=== PATIENT | female | born 1940 | race Caucasian/White ===

== ENCOUNTER 2018-03-23 08:10 | Inpatient (IN) | payer OTHER, BC ==
--- NOTE | 2018-03-23 08:21 | PDOC ---
Attending Attestation - HPI HPI: 03/23/18 10:29 The patient is a 77 year old female with a significant PMH of COPD and HTN who presents to the emergency department for evaluation of respiratory distress. As per EMS, the patients shortness of breath and cough has been worsening over the past week. They state she has been taking Azithromycin over the past week to minimal relief. Patient history is limited secondary to the patients respiratory distress. Allergies: NKA <Gavin Melgar - Last Filed: 03/23/18 10:29> - Resident Resident Name: Jesse Blair - ED Attending Attestation I have performed the following: I have examined & evaluated the patient, The case was reviewed & discussed with the resident, I agree w/resident's findings & plan, Exceptions are as noted - Physicial Exam PE: 03/23/18 16:25 Vitals: Triage Vital signs reviewed General Appearance: Moderate respiratory distress Head: Atraumatic, Neck: Supple;No Nucal rigidity Chest Wall: Nontender Cardiac: Tachycardia Lungs: Crackles and Wheezes B/L Abdomen: Soft, non distended, normal bowel sounds, non tender to palpation Extremities: Full range of motion to all extremities, no cyanosis, clubbing, or edema Skin: diaphroetic Psych: normal mood, normal affect - Critical Care Time Total Critical Care Time: 35 Critical Care Statement: The care of this patient involved high complexity decision making to prevent further life threatening deterioration of the patient 's condition and/or to evaluate & treat vital organ system(s) failure or risk of failure. - Medical Decision Making 03/23/18 16:24 The patient is a 77 year old female with a significant PMH of COPD and HTN who presents to the emergency department for evaluation of respiratory distress. As per EMS, the patients shortness of breath and cough has been worsening over the past week. They state she has been taking Azithromycin over the past week to minimal relief. Patient history is limited secondary to the patients respiratory distress. History examination and vital signs concerning for sepsis secondary to a respiratory process Sepsis order set initiated Patient started on BiPAP ABG ordered blood cultures ordered antibiotics given Reevaluation patient improving on BiPAP Reevaluation history examination consistent with pneumonia We'll admit to ICU for further management ICU aware <Don Hou - Last Filed: 03/23/18 16:26>
--- NOTE | 2018-03-23 08:28 | PDOC ---
History of Present Illness - General Chief Complaint: Shortness of Breath Stated Complaint: SOB Time Seen by Provider: 03/23/18 08:21 - History of Present Illness Initial Comments: 03/23/18 08:56 The patient is a 77 year old female with a history of HTN, COPD who presents for evaluation of respiratory distress. History is limited from the patient due to respiratory distress. Per EMS the patient has been experiencing worsening SOB and cough over the past week and has been taking azithromycin on an outpatient basis for a probably pneumonia without improvement in her symptoms. The patient was experiencing worsening respiratory distress and lethargy today prompting her presentation to the ED for evaluation. She received [address] to the ED with some mild improvement in her symptoms. ROS is limited due to the patient's respiratory distress. Past History - Past Medical History Allergies/Adverse Reactions: Allergies Allergy/AdvReac Type Severity Reaction Status Date / Time No Known Allergies Allergy Verified 03/23/18 08:20 Asthma: Yes COPD: Yes HTN: Yes - Suicide/Smoking/Psychosocial Hx Smoking History: Unknown if ever smoked Review of Systems - Review of Systems Able to Perform ROS?: No (Respiratory Distress) *Physical Exam - Vital Signs Last Vital Signs Temp Pulse Resp BP Pulse Ox 100.5 F H 134 H 40 H 154/101 97 03/23/18 08:28 03/23/18 08:21 03/23/18 08:21 03/23/18 08:21 03/23/18 08:21 - Physical Exam Comments: 03/23/18 09:01 General Appearance: Diaphoretic In Apparent Distress HEENT: No Pharyngeal Erythema, Tonsillar Exudate, Tonsillar Erythema Neck: No Cervical Lymphadenopathy Respiratory/Chest: Diffuse expiratory wheezing and rhonchi noted on exam. Cardiovascular: Regular Rhythm, Tachycardic. No Murmur, Gallops, Rubs Gastrointestinal/Abdominal: Normal Bowel Sounds, Soft. No Guarding, Rebound, Tenderness Musculoskeletal: No CVA Tenderness Extremity: Normal Capillary Refill Integumentary: Normal Color, Warm Neurologic: Lethargic, Normal Mood/Affect, Normal Response, Heart Score/ECG Review #1 ECG reviewed & interpreted by me at: 09:03 (Tachycardic Rate) General ECG Interpretation: Sinus Rhythm, Normal Intervals, No acute ischemic changes ED Treatment Course - LABORATORY CBC & Chemistry Diagram: 03/23/18 08:15 03/23/18 08:15 Medical Decision Making - Medical Decision Making 03/23/18 09:03 The patient is a 77 year old female with a history of HTN, COPD who presents for evaluation of respiratory distress. Differential includes but is not limited to: Sepsis, Pneumonia, COPD Exacerbation, Pulmonary Edema, Infectious, Metabolic Derangement. Given the patient's history and physical exam, it is likely her symptoms are due to sepsis secondary to a pneumonia. We will obtain a cbc, cmp, troponin, vbg, abg, lactate, blood cultures, ua, urine cultures, chest plain film and EKG to evaluate further. The patient's respiratory status has improved on bipap and we will continue treat with vanc, zosyn and continue to closely monitor and reassess. 03/23/18 10:02 CBC demonstrates an elevated wbc to 16.5. CMP demonstrates a creatinine of 1.1. Lactic Acid is elevated to 2.2. ABG demonstrates a ph of 7.22. We believe the patient requires ICU admission at this time given her respiratory distress and severe sepsis. We discussed the case with Dr. Alexandra who accepted the patient to ICU. We discussed the case with Dr. Zepeda who accepted the patient for admission. *DC/Admit/Observation/Transfer Diagnosis at time of Disposition: Respiratory distress Pneumonia Qualifiers: Pneumonia type: due to unspecified organism Laterality: unspecified laterality Lung location: unspecified part of lung Qualified Code(s): J18.9 - Pneumonia, unspecified organism Sepsis Qualifiers: Sepsis type: sepsis due to unspecified organism Qualified Code(s): A41.9 - Sepsis, unspecified organism - Discharge Dispostion Condition at time of disposition: Critical Admit: Yes - Referrals - Patient Instructions - Post Discharge Activity
[2018-03-23] MEDS ORDERED: ACETAMINOPHEN 1000 MG/100 ML VIAL (NON FORMULARY) IVPB ONE (08:29)
[2018-03-23] MEDS ORDERED: PIPERACILLIN/TAZOB 3.375 GM 3.375 GM in DEXTROSE 5%-WATER - 50 ML IVPB ONE ×2 (08:37→18:00)
[2018-03-23] MEDS: ALBUTEROL SO4 2.5/IPRATROPIUM 0.5 INH SOL 3 ML VIAL.NEB. NEB SCH ×7 (08:37→21:11)
[2018-03-23] MEDS ORDERED: VANCOMYCIN 1,000 MG in DEXTROSE 5%-WATER - 250 ML IVPB ONE (08:37)
[2018-03-23] MEDS ORDERED: ACETAMINOPHEN INJECTION 100 ML IVPB ONE (08:37)
[2018-03-23 08:38] LABS: VENOUS PC02 73.1 mmHg (38-52); VENOUS PH 7.19 (7.32-7.42)
[2018-03-23 08:39] LABS: ARTERIAL BLOOD GAS BASE EXCESS -2.6 meq/l (-2-2); ARTERIAL BLOOD GAS pH 7.22 (7.35-7.45)
[2018-03-23 08:41] LABS: BASO % 0.6 % (0-2.0); HEMATOCRIT 45.4 % (32.4-45.2); HEMOGLOBIN 15.2 GM/dL (10.7-15.3); LYMPH % 4.9 % (8-40); MCH 30.7 pg (25.7-33.7); MCHC 33.6 g/dl (32.0-36.0); MEAN CELL VOLUME 91.3 fl (80-96); MEAN PLT VOLUME 8.5 fl (7.5-11.1); MONO % 7.3 % (3.8-10.2); NEUT % 87.2 % (42.8-82.8); PLATELET COUNT 315 K/MM3 (134-434); RBC 4.97 M/mm3 (3.60-5.2); RDW 15.3 % (11.6-15.6); WHITE BLOOD COUNT 16.2 K/mm3 (4.0-10.0)
[2018-03-23 08:48] LABS: INR 1.19 (0.82-1.09); PROTHROMBIN TIME (PATIENT) 13.5 SEC (9.7-13.0)
[2018-03-23 08:51] LABS: ACTIVATED PTT 29.5 SECONDS (26.9-34.4)
[2018-03-23 09:02] LABS: ALK PHOS 104 U/L (45-117); ANION GAP 8 (8-16); BILIRUBIN,TOTAL 1.2 mg/dL (0.2-1.0); BLOOD UREA NITROGEN 20 mg/dL (7-18); CALCIUM 8.5 mg/dL (8.5-10.1); CHLORIDE 101 mmol/L (98-107); CO2 28 mmol/L (21-32); CREATININE 1.1 mg/dL (0.55-1.02); GLUCOSE,RANDOM 254 mg/dL (74-106); SGPT/ALT 18 U/L (12-78); SODIUM 137 mmol/L (136-145); TOT PROT 8.1 g/dl (6.4-8.2)
[2018-03-23] MEDS ORDERED: VANCOMYCIN 1 GRAM (PRE-DOCKED) 1,000 MG/250 ML BAG IVPB ONE (09:04)
[2018-03-23] MEDS ORDERED: PIPERACILLIN/TAZOB 3.375 GM 3.375 GM/50 ML BAG IVPB ONE (09:05)
[2018-03-23 09:09] LABS: POTASSIUM 4.5 mmol/L (3.5-5.1); SGOT/AST 50 U/L (15-37)
[2018-03-23] MEDS ORDERED: SODIUM CHLORIDE 1,000 ML IV STA ×2 (09:16→12:25)
[2018-03-23] MEDS ORDERED: ALBUTEROL SO4 2.5/IPRATROPIUM 0.5 INH SOL 3 ML VIAL.NEB. NEB ONE (09:50)
[2018-03-23 10:13] LABS: URINE APPEARANCE SLCLOUDY; URINE BILIRUBIN NEGATIVE (<2.0 mg/dL); URINE COLOR DKYELLOW; URINE GLUCOSE (UA) 1+ (NEGATIVE); URINE KETONE NEGATIVE (NEGATIVE); URINE LEUK ESTERASE NEGATIVE (NEGATIVE); URINE NITRITE NEGATIVE (NEGATIVE); URINE UROBILINOGEN NEGATIVE mg/dL (0.2-1.0)
[2018-03-23 10:18] LABS: URINE PROTEIN 3+ (NEGATIVE)
[2018-03-23 10:30] LABS: EPI CELLS RARE /HPF (FEW); URINE MUCUS RARE
[2018-03-23 11:40] VITALS: BMI 24.3
--- NOTE | 2018-03-23 12:09 | EKG ---
Test Reason : Blood Pressure : / mmHG Vent. Rate : 123 BPM Atrial Rate : 123 BPM P-R Int : 146 ms QRS Dur : 102 ms QT Int : 310 ms P-R-T Axes : 062 -52 073 degrees QTc Int : 443 ms POOR DATA QUALITY, INTERPRETATION MAY BE ADVERSELY AFFECTED SINUS TACHYCARDIA LEFT AXIS DEVIATION NONSPECIFIC ST ABNORMALITY ABNORMAL ECG WHEN COMPARED WITH ECG OF 16-MAY-2005 12:15, QRS AXIS SHIFTED LEFT Confirmed by LOCO BOND, OLLIE ([id number]) on 03/23/2018 12:09:05 PM Referred By: Confirmed By:OLLIE ADAN MD
--- NOTE | 2018-03-23 13:26 | DS ---
Physical Exam: SUBJECTIVE: Patient seen and examined OBJECTIVE: Vital Signs Period Temp Pulse Resp BP Sys/Sow Pulse Ox Last 24 Hr 99.7 F-100.5 F 100-134 16-40 81-154/63-101 96-100 PHYSICAL EXAM GENERAL: The patient is awake, alert, and fully oriented, in no acute distress. HEAD: Normal with no signs of trauma. EYES: PERRL, extraocular movements intact, sclera anicteric, conjunctiva clear. ENT: Ears normal, nares patent, oropharynx clear without exudates, moist mucous membranes. NECK: Trachea midline, full range of motion, supple. LUNGS: Breath sounds equal, clear to auscultation bilaterally, no wheezes, no crackles, no accessory muscle use. HEART: Regular rate and rhythm, S1, S2 without murmur, rub or gallop. ABDOMEN: Soft, nontender, nondistended, normoactive bowel sounds, no guarding, no rebound, no hepatosplenomegaly, no masses. EXTREMITIES: 2+ pulses, warm, well-perfused, no edema. NEUROLOGICAL: Cranial nerves II through XII grossly intact. Normal speech, gait not observed. PSYCH: Normal mood, normal affect. SKIN: Warm, dry, normal turgor, no rashes or lesions noted. LABS Laboratory Results - last 24 hr 03/23/18 03/23/18 03/23/18 08:15 08:15 08:15 WBC 16.2 H D RBC 4.97 Hgb 15.2 Hct 45.4 H MCV 91.3 MCH 30.7 MCHC 33.6 RDW 15.3 Plt Count 315 D MPV 8.5 D Neutrophils % 87.2 H Lymphocytes % 4.9 L Monocytes % 7.3 Eosinophils % 0.0 Basophils % 0.6 PT with INR 13.50 H INR 1.19 H PTT (Actin FS) 29.5 Anticoagulation Therapy Puncture Site ABG pH ABG pCO2 at Pt Temp ABG pO2 at Pt Temp ABG HCO3 ABG O2 Sat (Measured) ABG O2 Content ABG Base Excess [place] Test VBG pH 7.19 L* POC VBG pCO2 73.1 H* POC VBG pO2 79.0 H Mixed VBG HCO3 26.9 H Carboxyhemoglobin Methemoglobin O2 Delivery Device Oxygen Flow Rate Vent Mode Vent Rate Mechanical Rate Pressure Support Vent Sodium Potassium Chloride Carbon Dioxide Anion Gap BUN Creatinine Creat Clearance w eGFR Random Glucose Lactic Acid Calcium Total Bilirubin AST ALT Alkaline Phosphatase Troponin I Total Protein Albumin Urine Color Urine Appearance Urine pH Ur Specific [place] Urine Protein Urine Glucose (UA) Urine Ketones Urine Blood Urine Nitrite Urine Bilirubin Urine Urobilinogen Ur Leukocyte Esterase Urine WBC (Auto) Urine RBC (Auto) Ur Epithelial Cells Granular Casts Urine Mucus 03/23/18 03/23/18 03/23/18 08:15 08:22 08:30 WBC RBC Hgb Hct MCV MCH MCHC RDW Plt Count MPV Neutrophils % Lymphocytes % Monocytes % Eosinophils % Basophils % PT with INR INR PTT (Actin FS) Anticoagulation Therapy No Result Required. Puncture Site No Result Required. ABG pH 7.22 L* ABG pCO2 at Pt Temp 69.0 H* ABG pO2 at Pt Temp 121.0 H ABG HCO3 27.0 H ABG O2 Sat (Measured) 97.0 ABG O2 Content 21.1 ABG Base Excess -2.6 L [place] Test No Result Required. VBG pH POC VBG pCO2 POC VBG pO2 Mixed VBG HCO3 Carboxyhemoglobin 1.0 Methemoglobin 1.0 O2 Delivery Device No Result Required. Oxygen Flow Rate No Result Required. Vent Mode No Result Required. Vent Rate No Result Required. Mechanical Rate No Result Required. Pressure Support Vent No Result Required. Sodium 137 Potassium 4.5 Chloride 101 Carbon Dioxide 28 Anion Gap 8 BUN 20 H Creatinine 1.1 H Creat Clearance w eGFR 48.29 Random Glucose 254 H Lactic Acid 2.2 H* Calcium 8.5 Total Bilirubin 1.2 H AST 50 H ALT 18 Alkaline Phosphatase 104 Troponin I Total Protein 8.1 Albumin 4.0 Urine Color Urine Appearance Urine pH Ur Specific [place] Urine Protein Urine Glucose (UA) Urine Ketones Urine Blood Urine Nitrite Urine Bilirubin Urine Urobilinogen Ur Leukocyte Esterase Urine WBC (Auto) Urine RBC (Auto) Ur Epithelial Cells Granular Casts Urine Mucus 03/23/18 03/23/18 03/23/18 10:00 10:10 11:03 WBC RBC Hgb Hct MCV MCH MCHC RDW Plt Count MPV Neutrophils % Lymphocytes % Monocytes % Eosinophils % Basophils % PT with INR INR PTT (Actin FS) Anticoagulation Therapy Puncture Site ABG pH ABG pCO2 at Pt Temp ABG pO2 at Pt Temp ABG HCO3 ABG O2 Sat (Measured) ABG O2 Content ABG Base Excess [place] Test VBG pH POC VBG pCO2 POC VBG pO2 Mixed VBG HCO3 Carboxyhemoglobin Methemoglobin O2 Delivery Device Oxygen Flow Rate Vent Mode Vent Rate Mechanical Rate Pressure Support Vent Sodium Potassium Chloride Carbon Dioxide Anion Gap BUN Creatinine Creat Clearance w eGFR Random Glucose Lactic Acid 1.8 Calcium Total Bilirubin AST ALT Alkaline Phosphatase Troponin I 0.07 H Total Protein Albumin Urine Color Dkyellow Urine Appearance Slcloudy Urine pH 7.0 Ur Specific [place] 1.026 Urine Protein 3+ H D Urine Glucose (UA) 1+ H Urine Ketones Negative Urine Blood Negative Urine Nitrite Negative Urine Bilirubin Negative Urine Urobilinogen Negative Ur Leukocyte Esterase Negative Urine WBC (Auto) 11 Urine RBC (Auto) 12 Ur Epithelial Cells Rare Granular Casts 191 Urine Mucus Rare HOSPITAL COURSE: Date of Admission:03/23/18 Date of Discharge: 03/23/18 Discharge Summary Reason For Visit: RESPIRATORY DISTRESS,SEPSIS,PNA Current Active Problems Pneumonia (Acute) Respiratory distress (Acute) Sepsis (Acute) Condition: Critical - Instructions - Home Medications Comprehensive Discharge Medication List: Ambulatory Orders Albuterol Sulfate Inhaler - [Ventolin Hfa Inhaler -] 1 - 2 inh PO Q4H PRN Alendronate Na [Fosamax] 70 mg PO WEEKLY 03/23/18 Amlodipine Besylate 5 mg PO DAILY 03/23/18 Azithromycin [Zithromax -] 1 gm PO ASDIR 03/23/18 Fluticasone Prop 0.05% Nasal [Flonase -] 1 spray NS ASDIR 03/23/18 Folic Acid 1 mg PO DAILY 03/23/18 Methotrexate Sodium [Methotrexate] 15 mg PO WEEKLY 03/23/18 Pregabalin [Lyrica] 100 mg PO BID 03/23/18 Propranolol HCl 10 mg PO BID 03/23/18 Tiotropium [place] [Spiriva] 1 inh PO DAILY 03/23/18 predniSONE [Deltasone -] 1 mg PO ASDIR 03/23/18
--- NOTE | 2018-03-23 13:28 | PN ---
Teaching Attending Note Name of Resident: Isaiah Hernandez ATTENDING PHYSICIAN STATEMENT I saw and evaluated the patient. I reviewed the resident's note and discussed the case with the resident. I agree with the resident's findings and plan as documented. SUBJECTIVE: Pt seen and examined in the ICU. 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 Reports subjective fevers and generalized weakness. Has been on azithromycin the past week without significant improvement. Low grade fever on presentation and with respiratory distress, ABG showing acute respiratory acidosis, placed on BiPAP with subjective improvement. Not hospitalized since 2004, was on antibiotics 3- 4 months ago as outpt. She is a never smoker. OBJECTIVE: Last Vital Signs Temp Pulse Resp BP Pulse Ox 99.7 F H 100 H 19 85/71 100 03/23/18 13:01 03/23/18 13:01 03/23/18 13:01 03/23/18 13:01 03/23/18 12:18 Intake & Output 03/20/18 03/21/18 03/22/18 03/23/18 23:59 23:59 23:59 23:59 Output Total 250 Balance -250 Weight 64.41 kg Gen: tachypneic with speaking on BiPAP Heart: tachycardic, regular Lung: distant breath sounds Abd: soft, nontender Ext: no edema CBC, BMP 03/23/18 08:15 03/23/18 08:15 Active Medications Piperacillin Sod/Tazobactam (Sod 3.375 gm/ Dextrose) 50 mls @ 100 mls/hr IVPB ONCE ONE PRN Reason: Protocol Stop: 03/23/18 18:29 Sodium Chloride (Normal Saline -) 1,000 mls @ 125 mls/hr IV ASDIR BENJY ASSESSMENT AND PLAN: Acute Hypoxic and Hypercapneic Respiratory Failure Acute COPD Exacerbation r/o Pneumonia Sepsis Churg Valencia Disease HTN - IV antibiotics, can de-escalate antibiotics if cultures negative - f/u cultures - flu swab - short course of medrol given COPD history and acute hypercapnea - inhaled bronchodilators standing and PRN - BiPAP to assist in work of breathing and acute hypercapnea - monitor ABG - titrate O2 to keep SpO2 >90% - IVF resuscitation - DVT prophylaxis - ICU monitoring critical care time spent in reviewing chart, evaluating patient and formulating plan 35 min
--- NOTE | 2018-03-23 13:31 | CONSULT ---
Consultation: REQUESTING PROVIDER: Dr Blair CONSULT REQUEST: We have been asked to medically evaluate this patient for ICU/ CC. HISTORY OF PRESENT ILLNESS: Patient seen and examined in ED and ICU. 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 EMS reports that her O2 saturation in the field at home was 78% on room air when they arrived. She was placed on a non-rebreather which raised her spO2 to 93%. Upon arrival to the ED , the patient was confused and intubation was considered. However, patient was able to comply and tolerate with bipap. Her clinical picture then quickly improved. She states that she had been treated with azithromycin as an outpatient for the past week. Denies chest pain, fever, nausea, vomiting. States that she no longer feels like she's short of breath on bipap and that she has some chills. REVIEW OF SYSTEMS: GENERAL/CONSTITUTIONAL: No fever. Positive for chills. CARDIOVASCULAR: No chest pain. Positive for shortness of breath RESPIRATORY: Positive for cough. No wheezing, or hemoptysis. GASTROINTESTINAL: No nausea, vomiting, diarrhea or constipation. GENITOURINARY: No dysuria, frequency, or change in urination. MUSCULOSKELETAL: No joint or muscle swelling or pain. No neck or back pain. SKIN: No rash NEUROLOGIC: No headache, vertigo, loss of consciousness, or change in strength/ sensation. ENDOCRINE: No increased thirst. No abnormal weight change ALLERGIC/IMMUNOLOGIC: No hives or skin allergy. PHYSICAL EXAMINATION Vital Signs - 24 hr 03/23/18 03/23/18 03/23/18 08:21 08:28 08:30 Temperature 100.5 F H 100.5 F H Pulse Rate 134 H 123 H Pulse Rate [ Left Apical] Respiratory 40 H 32 H Rate Blood Pressure 154/101 151/101 Blood Pressure [Right Arm] O2 Sat by Pulse 97 100 Oximetry (%) 03/23/18 03/23/18 03/23/18 08:33 08:45 09:29 Temperature Pulse Rate 123 H Pulse Rate [ 113 H Left Apical] Respiratory 22 Rate Blood Pressure Blood Pressure 124/86 [Right Arm] O2 Sat by Pulse 99 96 100 Oximetry (%) 03/23/18 03/23/18 03/23/18 09:59 10:12 11:00 Temperature Pulse Rate 106 H Pulse Rate [ 109 H 109 H Left Apical] Respiratory 16 16 20 Rate Blood Pressure 103/83 Blood Pressure 111/80 103/80 [Right Arm] O2 Sat by Pulse 100 100 100 Oximetry (%) 03/23/18 03/23/18 03/23/18 11:45 11:46 12:15 Temperature 99.7 F H 99.7 F H Pulse Rate 104 H 106 H Pulse Rate [ Left Apical] Respiratory 21 19 Rate Blood Pressure 97/74 81/63 Blood Pressure [Right Arm] O2 Sat by Pulse 98 Oximetry (%) 03/23/18 03/23/18 12:18 13:01 Temperature 99.7 F H Pulse Rate 100 H Pulse Rate [ Left Apical] Respiratory 19 Rate Blood Pressure 85/71 Blood Pressure [Right Arm] O2 Sat by Pulse 100 Oximetry (%) GENERAL: Awake, alert, and fully oriented, on bipap. HEAD: Normal with no signs of trauma. EYES: Pupils equal, round and reactive to light, lateral deviation of left eye, sclera anicteric, conjunctiva clear. NECK: Normal range of motion, supple without lymphadenopathy, JVD, or masses. LUNGS: Breath sounds equal, coarse breath sounds bilaterally. No accessory muscle use. HEART: Tachycardic, normal rhythm, normal S1 and S2 without murmur, rub or gallop. ABDOMEN: Soft, nontender, not distended, normoactive bowel sounds, no guarding, no rebound, no masses. No hepatomegaly or splenomegaly. MUSCULOSKELETAL: Normal range of motion at all joints. No bony deformities or tenderness. No CVA tenderness. UPPER EXTREMITIES: 2+ pulses, warm, well-perfused. No cyanosis. No clubbing. No peripheral edema. LOWER EXTREMITIES: 2+ pulses, warm, well-perfused. No calf tenderness. No peripheral edema. NEUROLOGICAL: Cranial nerves II-XII intact with lateral left eye deviation. Normal speech. SKIN: Warm, dry, normal turgor, no rashes or lesions noted. Laboratory Results - last 24 hr 03/23/18 03/23/18 03/23/18 08:15 08:15 08:15 WBC 16.2 H D RBC 4.97 Hgb 15.2 Hct 45.4 H MCV 91.3 MCH 30.7 MCHC 33.6 RDW 15.3 Plt Count 315 D MPV 8.5 D Neutrophils % 87.2 H Lymphocytes % 4.9 L Monocytes % 7.3 Eosinophils % 0.0 Basophils % 0.6 PT with INR 13.50 H INR 1.19 H PTT (Actin FS) 29.5 Anticoagulation Therapy Puncture Site ABG pH ABG pCO2 at Pt Temp ABG pO2 at Pt Temp ABG HCO3 ABG O2 Sat (Measured) ABG O2 Content ABG Base Excess [place] Test VBG pH 7.19 L* POC VBG pCO2 73.1 H* POC VBG pO2 79.0 H Mixed VBG HCO3 26.9 H Carboxyhemoglobin Methemoglobin O2 Delivery Device Oxygen Flow Rate Vent Mode Vent Rate Mechanical Rate Pressure Support Vent Sodium Potassium Chloride Carbon Dioxide Anion Gap BUN Creatinine Creat Clearance w eGFR Random Glucose Lactic Acid Calcium Total Bilirubin AST ALT Alkaline Phosphatase Troponin I Total Protein Albumin Urine Color Urine Appearance Urine pH Ur Specific [place] Urine Protein Urine Glucose (UA) Urine Ketones Urine Blood Urine Nitrite Urine Bilirubin Urine Urobilinogen Ur Leukocyte Esterase Urine WBC (Auto) Urine RBC (Auto) Ur Epithelial Cells Granular Casts Urine Mucus 03/23/18 03/23/18 03/23/18 08:15 08:22 08:30 WBC RBC Hgb Hct MCV MCH MCHC RDW Plt Count MPV Neutrophils % Lymphocytes % Monocytes % Eosinophils % Basophils % PT with INR INR PTT (Actin FS) Anticoagulation Therapy No Result Required. Puncture Site No Result Required. ABG pH 7.22 L* ABG pCO2 at Pt Temp 69.0 H* ABG pO2 at Pt Temp 121.0 H ABG HCO3 27.0 H ABG O2 Sat (Measured) 97.0 ABG O2 Content 21.1 ABG Base Excess -2.6 L [place] Test No Result Required. VBG pH POC VBG pCO2 POC VBG pO2 Mixed VBG HCO3 Carboxyhemoglobin 1.0 Methemoglobin 1.0 O2 Delivery Device No Result Required. Oxygen Flow Rate No Result Required. Vent Mode No Result Required. Vent Rate No Result Required. Mechanical Rate No Result Required. Pressure Support Vent No Result Required. Sodium 137 Potassium 4.5 Chloride 101 Carbon Dioxide 28 Anion Gap 8 BUN 20 H Creatinine 1.1 H Creat Clearance w eGFR 48.29 Random Glucose 254 H Lactic Acid 2.2 H* Calcium 8.5 Total Bilirubin 1.2 H AST 50 H ALT 18 Alkaline Phosphatase 104 Troponin I Total Protein 8.1 Albumin 4.0 Urine Color Urine Appearance Urine pH Ur Specific [place] Urine Protein Urine Glucose (UA) Urine Ketones Urine Blood Urine Nitrite Urine Bilirubin Urine Urobilinogen Ur Leukocyte Esterase Urine WBC (Auto) Urine RBC (Auto) Ur Epithelial Cells Granular Casts Urine Mucus 03/23/18 03/23/18 03/23/18 10:00 10:10 11:03 WBC RBC Hgb Hct MCV MCH MCHC RDW Plt Count MPV Neutrophils % Lymphocytes % Monocytes % Eosinophils % Basophils % PT with INR INR PTT (Actin FS) Anticoagulation Therapy Puncture Site ABG pH ABG pCO2 at Pt Temp ABG pO2 at Pt Temp ABG HCO3 ABG O2 Sat (Measured) ABG O2 Content ABG Base Excess [place] Test VBG pH POC VBG pCO2 POC VBG pO2 Mixed VBG HCO3 Carboxyhemoglobin Methemoglobin O2 Delivery Device Oxygen Flow Rate Vent Mode Vent Rate Mechanical Rate Pressure Support Vent Sodium Potassium Chloride Carbon Dioxide Anion Gap BUN Creatinine Creat Clearance w eGFR Random Glucose Lactic Acid 1.8 Calcium Total Bilirubin AST ALT Alkaline Phosphatase Troponin I 0.07 H Total Protein Albumin Urine Color Dkyellow Urine Appearance Slcloudy Urine pH 7.0 Ur Specific [place] 1.026 Urine Protein 3+ H D Urine Glucose (UA) 1+ H Urine Ketones Negative Urine Blood Negative Urine Nitrite Negative Urine Bilirubin Negative Urine Urobilinogen Negative Ur Leukocyte Esterase Negative Urine WBC (Auto) 11 Urine RBC (Auto) 12 Ur Epithelial Cells Rare Granular Casts 191 Urine Mucus Rare Active Medications Generic Name Dose Route Start Last Admin Trade Name Freq PRN Reason Stop Dose Admin Piperacillin Sod/Tazobactam 50 mls @ 100 mls/hr 03/23/18 18:00 Sod 3.375 gm/ Dextrose IVPB 03/23/18 18:29 ONCE ONE Protocol Sodium Chloride 1,000 mls @ 125 mls/hr 03/23/18 12:45 Normal Saline - IV ASDIR [facility] ASSESSMENT/PLAN: Patient is a 77F with history of COPD, HTN, 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 Respiratory #Respiratory distress with respiratory acidosis - On bipap, tolerating well. Will attempt to wean - Etiology COPD exacerbation vs pneumonia, will cover with zosyn due to patient' s immunocompromised status and failed azithromycin tx - CXR shows diffuse chronic lung disease - Methylprednisone 40 q8h - Duonebs q4h, albuterol prn - ABG in AM ID #Severe sepsis 2/2 possible pneumonia - Tachypneic, white count 16, tachycardic, + source with lactate. BPs stable. - Lactate 2.2, cleared to 1.8 with 1L - No signs of fluid overload, will give additional liter and place on 125cc/hr maintenance - Zosyn due to patients ic status and failed azithromycin tx - Will consider de-escalation after initial stabilization FEN/GI -NPO until bipap weaned -125cc/hr fluids -Will replete as necessary PPx - heparin and protonix Visit type - Emergency Visit Emergency Visit: Yes ED Registration Date: 03/23/18 Care time: The patient presented to the Emergency Department on the above date and was hospitalized for further evaluation of their emergent condition. - New Patient This patient is new to me today: Yes Date on this admission: 03/23/18 - Critical Care Critical Care patient: Yes Total Critical Care Time (in minutes): 60 Critical Care Statement: The care of this patient involved high complexity decision making to prevent further life threatening deterioration of the patient 's condition and/or to evaluate & treat vital organ system(s) failure or risk of failure.
[2018-03-23] MEDS ORDERED: ALBUTEROL SO4 2.5/IPRATROPIUM 0.5 INH SOL 3 ML VIAL.NEB. NEB PRN (13:33)
[2018-03-23] MEDS ORDERED: ALBUTEROL SO4 0.042% IH SOL 1.25 MG/3 ML VIAL.NEB NEB PRN (13:33)
[2018-03-23] MEDS ORDERED: PANTOPRAZOLE SODIUM 40 MG VIAL IVPUSH ONE ×2 (13:40→15:45)
[2018-03-23] MEDS: SODIUM CHLORIDE 1,000 ML IV SCH (14:21)
--- NOTE | 2018-03-23 14:30 | HP ---
Admitting History and Physical - Admission Chief Complaint: 77 y.o F developed today AM severe SOB and worsening cough while at home, called 911 and was BIBEMS to [facility] ER. She was seen in the office the previous week and was given Z-pack and steroids/MDI's . Now placed on BIPAP mask for respiratory failure and respiratory acidosis History of Present Illness: Asthma/COPD Churg-Valencia vasculitis. HTN Ostheoporosis. 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: Alzheimer's, CVA, Dementia, Migraine, Multiple Sclerosis, Peripheral Neuropathy, Parkinson's, Seizure, Syncope, TIA, Vertigo, Other Pulmonary: Yes: Asthma, COPD, Other (Churg-valencia vasculitis.) Gastrointestinal: No: Ascites, Cancer, Constipation Hepatobiliary: No: Cirrhosis, Cholelithiasis, Cholecystitis, Choledocholithiasis , Hepatitis A, Hepatitis B, Hepatitis C, Other Renal/: No: Renal Failure, Renal Inusuff, BPH, Cancer, Hematuria, Hemodialysis , Neurogenic Bladder, Renal Calculi, UTI, Other Reproductive: Yes: Postmenopausal Heme/Onc: No: Anemia, B12 Deficiency, Bleeding Disorder, Cancer, Current Chemotherapy, Current Radiation Therapy, Hemochromatosis, Hypercoaguable State, Myeloproliferative Synd, Sickle Cell Disease, Sickle Cell Trait, Thrombocytopenia, Other Infectious Disease: No: AIDS, C-Diff, Herpes Zoster, HIV, MRSA, STD's, Tuberculosis, VREF, Other Musculoskeletal: No: Bursitis, Chronic low back pain, Hemiparesis, Hemiplegia, Osteoarthritis, Paraplegia, Other Rheumatology: Yes: Vasculitis ENT: No: Allergic Rhinitis, Sinusitis, Other Dermatology: No: Basal Cell, Cellulitis, Eczema, Melanoma, Psoriasis, Squamous Cell, Other - Smoking History Smoking history: Unknown if ever smoked Home Medications - Allergies Allergies/Adverse Reactions: Allergies Allergy/AdvReac Type Severity Reaction Status Date / Time No Known Allergies Allergy Verified 03/23/18 08:20 - Home Medications Home Medications: Ambulatory Orders Albuterol Sulfate Inhaler - [Ventolin Hfa Inhaler -] 1 - 2 inh PO Q4H PRN Alendronate Na [Fosamax] 70 mg PO WEEKLY 03/23/18 Amlodipine Besylate 5 mg PO DAILY 03/23/18 Azithromycin [Zithromax -] 1 gm PO ASDIR 03/23/18 Fluticasone Prop 0.05% Nasal [Flonase -] 1 spray NS ASDIR 03/23/18 Folic Acid 1 mg PO DAILY 03/23/18 Methotrexate Sodium [Methotrexate] 15 mg PO WEEKLY 03/23/18 Pregabalin [Lyrica] 100 mg PO BID 03/23/18 Propranolol HCl 10 mg PO BID 03/23/18 Tiotropium [place] [Spiriva] 1 inh PO DAILY 03/23/18 predniSONE [Deltasone -] 1 mg PO ASDIR 03/23/18 Family Disease History - Family Disease History Family History: Unremarkable Review of Systems Unable to obtain ROS, reason: on BIPAP in respiratory d - Review of Systems Constitutional: reports: Loss of Appetite, Weakness Physical Examination Vital Signs: Vital Signs Temperature 99.7 F H 03/23/18 13:01 Pulse Rate 122 H 03/23/18 14:13 Respiratory Rate 19 03/23/18 13:01 Blood Pressure 85/71 03/23/18 13:01 O2 Sat by Pulse Oximetry (%) 100 03/23/18 14:13 Constitutional: Yes: Anxious, Severe Distress, Thin. No: Pallor Eyes: Yes: Conjunctiva Clear, EOM Intact HENT: Yes: Atraumatic, Normocephalic. No: Drooling Neck: Yes: Supple, Trachea Midline. No: Lymphadenopathy Cardiovascular: Yes: Other (VPC's/APC's). No: Regular Rate and Rhythm, Tachycardia Respiratory: Yes: Accessory Muscle Use, Cough, On BiPap, Rales, Rhonchi, SOB, Wheezes (B/L) Gastrointestinal: Yes: Normal Bowel Sounds, Soft. No: Abdomen, Obese, Ascites ...Rectal Exam: Yes: Deferred Renal/: No: Anuria, Bladder Distention Breast(s): Yes: WNL Musculoskeletal: No: Joint Swelling, Muscle Pain Extremities: No: Amputation, Calf Tenderness, Cold, Cyanosis Edema: No Peripheral Pulses WNL: No Integumentary: Yes: WNL Neurological: Yes: Alert, Oriented. No: Confusion, Seizure, Unresponsive ...Motor Strength: WNL Psychiatric: Yes: WNL Labs: CBC, BMP 03/23/18 08:15 03/23/18 08:15 Laboratory Results - last 24 hr 0403/23/18 03/23/18 08:15 08:15 08:15 WBC 16.2 H D RBC 4.97 Hgb 15.2 Hct 45.4 H MCV 91.3 MCH 30.7 MCHC 33.6 RDW 15.3 Plt Count 315 D MPV 8.5 D Neutrophils % 87.2 H Lymphocytes % 4.9 L Monocytes % 7.3 Eosinophils % 0.0 Basophils % 0.6 PT with INR 13.50 H INR 1.19 H PTT (Actin FS) 29.5 Anticoagulation Therapy Puncture Site ABG pH ABG pCO2 at Pt Temp ABG pO2 at Pt Temp ABG HCO3 ABG O2 Sat (Measured) ABG O2 Content ABG Base Excess [place] Test VBG pH 7.19 L* POC VBG pCO2 73.1 H* POC VBG pO2 79.0 H Mixed VBG HCO3 26.9 H Carboxyhemoglobin Methemoglobin O2 Delivery Device Oxygen Flow Rate Vent Mode Vent Rate Mechanical Rate Pressure Support Vent Sodium Potassium Chloride Carbon Dioxide Anion Gap BUN Creatinine Creat Clearance w eGFR Random Glucose Lactic Acid Calcium Total Bilirubin AST ALT Alkaline Phosphatase Troponin I Total Protein Albumin Urine Color Urine Appearance Urine pH Ur Specific [place] Urine Protein Urine Glucose (UA) Urine Ketones Urine Blood Urine Nitrite Urine Bilirubin Urine Urobilinogen Ur Leukocyte Esterase Urine WBC (Auto) Urine RBC (Auto) Ur Epithelial Cells Granular Casts Urine Mucus 03/23/18 03/23/18 03/23/18 08:15 08:22 08:30 WBC RBC Hgb Hct MCV MCH MCHC RDW Plt Count MPV Neutrophils % Lymphocytes % Monocytes % Eosinophils % Basophils % PT with INR INR PTT (Actin FS) Anticoagulation Therapy No Result Required. Puncture Site No Result Required. ABG pH 7.22 L* ABG pCO2 at Pt Temp 69.0 H* ABG pO2 at Pt Temp 121.0 H ABG HCO3 27.0 H ABG O2 Sat (Measured) 97.0 ABG O2 Content 21.1 ABG Base Excess -2.6 L [place] Test No Result Required. VBG pH POC VBG pCO2 POC VBG pO2 Mixed VBG HCO3 Carboxyhemoglobin 1.0 Methemoglobin 1.0 O2 Delivery Device No Result Required. Oxygen Flow Rate No Result Required. Vent Mode No Result Required. Vent Rate No Result Required. Mechanical Rate No Result Required. Pressure Support Vent No Result Required. Sodium 137 Potassium 4.5 Chloride 101 Carbon Dioxide 28 Anion Gap 8 BUN 20 H Creatinine 1.1 H Creat Clearance w eGFR 48.29 Random Glucose 254 H Lactic Acid 2.2 H* Calcium 8.5 Total Bilirubin 1.2 H AST 50 H ALT 18 Alkaline Phosphatase 104 Troponin I Total Protein 8.1 Albumin 4.0 Urine Color Urine Appearance Urine pH Ur Specific [place] Urine Protein Urine Glucose (UA) Urine Ketones Urine Blood Urine Nitrite Urine Bilirubin Urine Urobilinogen Ur Leukocyte Esterase Urine WBC (Auto) Urine RBC (Auto) Ur Epithelial Cells Granular Casts Urine Mucus 03/23/18 03/23/18 03/23/18 10:00 10:10 11:03 WBC RBC Hgb Hct MCV MCH MCHC RDW Plt Count MPV Neutrophils % Lymphocytes % Monocytes % Eosinophils % Basophils % PT with INR INR PTT (Actin FS) Anticoagulation Therapy Puncture Site ABG pH ABG pCO2 at Pt Temp ABG pO2 at Pt Temp ABG HCO3 ABG O2 Sat (Measured) ABG O2 Content ABG Base Excess [place] Test VBG pH POC VBG pCO2 POC VBG pO2 Mixed VBG HCO3 Carboxyhemoglobin Methemoglobin O2 Delivery Device Oxygen Flow Rate Vent Mode Vent Rate Mechanical Rate Pressure Support Vent Sodium Potassium Chloride Carbon Dioxide Anion Gap BUN Creatinine Creat Clearance w eGFR Random Glucose Lactic Acid 1.8 Calcium Total Bilirubin AST ALT Alkaline Phosphatase Troponin I 0.07 H Total Protein Albumin Urine Color Dkyellow Urine Appearance Slcloudy Urine pH 7.0 Ur Specific [place] 1.026 Urine Protein 3+ H D Urine Glucose (UA) 1+ H Urine Ketones Negative Urine Blood Negative Urine Nitrite Negative Urine Bilirubin Negative Urine Urobilinogen Negative Ur Leukocyte Esterase Negative Urine WBC (Auto) 11 Urine RBC (Auto) 12 Ur Epithelial Cells Rare Granular Casts Casting Supervisor Urine Mucus Rare Imaging - Results Chest X-ray: Report Reviewed EKG: Image Reviewed Problem List - Problems (1) Respiratory distress Assessment/Plan: Continue BIPAP and F/U in the ICU Avoid sedating meds due to respiratory acidosis Code(s): R06.03 - ACUTE RESPIRATORY DISTRESS (2) Asthma with COPD Assessment/Plan: Continue Nebs Q 4 HRS IV Solumedrol 40mg IV Code(s): J44.9 - CHRONIC OBSTRUCTIVE PULMONARY DISEASE, UNSPECIFIED (3) Acute bronchitis Assessment/Plan: CXR does not show acute infiltrate. 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
[2018-03-23] MEDS: HEPARIN NA (PORCINE) 5,000 UNITS/ML 1ML VIAL SQ SCH ×2 (14:55→21:31)
[2018-03-23] MEDS: methylPREDNISolone NA SUCC 40 MG/1 ML VIAL IVPUSH SCH (15:47)
[2018-03-23] MEDS ORDERED: PIPERACILLIN/TAZOBACTAM 4.5 GM VIAL IVPB ONE ×2 (17:56→21:14)
[2018-03-23] MEDS ORDERED: DEXTROSE 5%-WATER 100 ML IVPB ONE ×2 (17:58→21:15)
[2018-03-23] MEDS: PIPERACILLIN/TAZOB 4.5 GM 4.5 GM in DEXTROSE 5%-WATER 100 ML IVPB SCH ×2 (18:02→21:31)
[2018-03-23] MEDS ORDERED: BENZOCAINE/MENTH/CETYLPYRD CL 1 EACH LOZENGE MM PRN (20:32)
[2018-03-23] MEDS: PREGABALIN 50 MG CAPSULE PO SCH (21:52)
[2018-03-23] MEDS ORDERED: PREGABALIN 100 MG CAPSULE PO SCH (22:00)
[2018-03-23] MEDS ORDERED: ACETAMINOPHEN 325 MG TABLET (FP) PO PRN (22:05)
[2018-03-24] MEDS: methylPREDNISolone NA SUCC 40 MG/1 ML VIAL IVPUSH SCH ×3 (02:00→17:18)
[2018-03-24] MEDS: PIPERACILLIN/TAZOB 4.5 GM 4.5 GM in DEXTROSE 5%-WATER 100 ML IVPB SCH ×4 (02:16→21:12)
[2018-03-24] MEDS: HEPARIN NA (PORCINE) 5,000 UNITS/ML 1ML VIAL SQ SCH ×3 (05:44→21:13)
[2018-03-24] MEDS: SODIUM CHLORIDE 1,000 ML IV SCH ×2 (05:45→13:50)
[2018-03-24 06:22] LABS: HEMATOCRIT 39.1 % (32.4-45.2); HEMOGLOBIN 13.4 GM/dL (10.7-15.3); LYMPH % 7.3 % (8-40); MCH 31.2 pg (25.7-33.7); MCHC 34.2 g/dl (32.0-36.0); MEAN CELL VOLUME 91.1 fl (80-96); MEAN PLT VOLUME 8.7 fl (7.5-11.1); MONO % 15.5 % (3.8-10.2); NEUT % 77.2 % (42.8-82.8); PLATELET COUNT 155 K/MM3 (134-434); RBC 4.29 M/mm3 (3.60-5.2); RDW 15.3 % (11.6-15.6); WHITE BLOOD COUNT 8.1 K/mm3 (4.0-10.0)
[2018-03-24 06:29] LABS: ARTERIAL BLD GAS O2 SATURATION 96.8 % (90-98.9); ARTERIAL BLOOD GAS BASE EXCESS -1.7 meq/l (-2-2); ARTERIAL BLOOD GAS PCO2 44.2 mmHg (35-45); ARTERIAL BLOOD GAS PO2 94.3 mmHg (70-100); ARTERIAL BLOOD GAS pH 7.35 (7.35-7.45)
[2018-03-24] MEDS: ALBUTEROL SO4 2.5/IPRATROPIUM 0.5 INH SOL 3 ML VIAL.NEB. NEB SCH ×2 (06:29→10:10)
[2018-03-24 06:30] LABS: ALLENS TEST POSITIVE
[2018-03-24 06:55] LABS: ANION GAP 10 (8-16); BLOOD UREA NITROGEN 21 mg/dL (7-18); CALCIUM 7.8 mg/dL (8.5-10.1); CHLORIDE 109 mmol/L (98-107); CO2 27 mmol/L (21-32); GLUCOSE,RANDOM 91 mg/dL (74-106); MAGNESIUM 1.9 mg/dL (1.8-2.4); POTASSIUM 3.6 mmol/L (3.5-5.1); SGOT/AST 58 U/L (15-37); SODIUM 146 mmol/L (136-145)
[2018-03-24 06:57] LABS: ALK PHOS 78 U/L (45-117); BILIRUBIN,TOTAL 0.8 mg/dL (0.2-1.0); CREATININE 0.9 mg/dL (0.55-1.02); PHOSPHOROUS 3.5 mg/dL (2.5-4.9); SGPT/ALT 26 U/L (12-78); TOT PROT 6.4 g/dl (6.4-8.2)
[2018-03-24] MEDS ORDERED: PT OWN MED DRAWER 7, Y5N ONE (09:00)
[2018-03-24] MEDS ORDERED: PIPERACILLIN/TAZOBACTAM 4.5 GM VIAL IVPB ONE ×3 (09:01→21:09)
[2018-03-24] MEDS ORDERED: DEXTROSE 5%-WATER 100 ML IVPB ONE ×3 (09:01→21:09)
[2018-03-24] MEDS: PREGABALIN 50 MG CAPSULE PO SCH ×2 (09:08→21:12)
--- NOTE | 2018-03-24 09:35 | CONSULT ---
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 HPI . Approximately 2 weeks ago the patient developed shortness of breath and productive cough. She was started on antibiotics and Prednisone with poor response and yesterday she experiencing worsening respiratory distress and lethargy and was admitted to the ICU with respiratory acidosis. On admission lactic acid was 2.2. Yesterday the patient was feeling better, this morning she had progression of SOB and at the present time she is stable. Eosinophilic granulomatosis with polyangiitis (EGPA). The patient has history of asthma and multiple atopias since age 57, history of transient lung infiltrates with eosinophilia and on April 2015 she was admitted to [place] with numbness in left hand, feet and pulmonary infiltrates. UA had blood 3+ and protein 2+ and complement was normal. PANCA was positive (10 with normal <6) . She was treated with Prednisone and Cyclophosphamide IV monthly pulses (X6) and since May 2006 with Methotrexate. She has been stable with no relapse of the disease. Urinalysis usually shows protein 1+ or it is normal. CXR with increased interstitial markings in the right apex, no CHF, no consolidation and no pleural effusion. In the present admission creatinine was 0.9, eGFR >60. And urinalysis with protein 3+ abd glucose 1+. CBC on admission had a WBC of of 16.2 and today it was 8.1. 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: Alzheimer's, CVA, Dementia, Migraine, Multiple Sclerosis, Peripheral Neuropathy, Parkinson's, Seizure, Syncope, TIA, Vertigo, Other Pulmonary: Yes: Asthma, COPD, Other (Churg-valencia vasculitis.) Gastrointestinal: No: Ascites, Cancer, Constipation Hepatobiliary: No: Cirrhosis, Cholelithiasis, Cholecystitis, Choledocholithiasis , Hepatitis A, Hepatitis B, Hepatitis C, Other Renal/: No: Renal Failure, Renal Inusuff, BPH, Cancer, Hematuria, Hemodialysis , Neurogenic Bladder, Renal Calculi, UTI, Other Infectious Disease: No: AIDS, C-Diff, Herpes Zoster, HIV, MRSA, STD's, Tuberculosis, VREF, Other Musculoskeletal: No: Bursitis, Chronic low back pain, Hemiparesis, Hemiplegia, Osteoarthritis, Paraplegia, Other Rheumatology: Yes: Vasculitis ENT: No: Allergic Rhinitis, Sinusitis, Other Dermatology: No: Basal Cell, Cellulitis, Eczema, Melanoma, Psoriasis, Squamous Cell, Other - Smoking History Smoking history: Unknown if ever smoked Home Medications - Allergies Allergies/Adverse Reactions: Allergies Allergy/AdvReac Type Severity Reaction Status Date / Time No Known Allergies Allergy Verified 03/23/18 08:20 - Home Medications Home Medications: Ambulatory Orders Albuterol Sulfate Inhaler - [Ventolin Hfa Inhaler -] 1 - 2 inh PO Q4H PRN Alendronate Na [Fosamax] 70 mg PO WEEKLY 03/23/18 Amlodipine Besylate 5 mg PO DAILY 03/23/18 Azithromycin [Zithromax -] 1 gm PO ASDIR 03/23/18 Fluticasone Prop 0.05% Nasal [Flonase -] 1 spray NS ASDIR 03/23/18 Folic Acid 1 mg PO DAILY 03/23/18 Methotrexate Sodium [Methotrexate] 15 mg PO WEEKLY 03/23/18 Pregabalin [Lyrica] 100 mg PO BID 03/23/18 Propranolol HCl 10 mg PO BID 03/23/18 Tiotropium [place] [Spiriva] 1 inh PO DAILY 03/23/18 predniSONE [Deltasone -] 1 mg PO ASDIR 03/23/18 Review of Systems - Review of Systems Constitutional: reports: Malaise Eyes: reports: No Symptoms HENT: reports: No Symptoms Neck: reports: No Symptoms Cardiovascular: reports: No Symptoms Respiratory: reports: Cough, SOB Gastrointestinal: reports: No Symptoms Genitourinary: reports: No Symptoms Musculoskeletal: reports: No Symptoms Integumentary: reports: No Symptoms Physical Exam Vital Signs: Vital Signs Temperature 99.2 F 03/24/18 08:00 Pulse Rate 92 H 03/24/18 08:11 Respiratory Rate 25 H 03/24/18 08:00 Blood Pressure 114/81 03/24/18 08:00 O2 Sat by Pulse Oximetry (%) 96 03/24/18 09:11 Constitutional: Yes: Moderate Distress Eyes: Yes: WNL HENT: Yes: WNL Neck: Yes: WNL Cardiovascular: Yes: WNL Respiratory: Yes: Other (No rales.) Musculoskeletal: Yes: WNL Labs: CBC, BMP 03/24/18 05:20 03/24/18 05:20 Laboratory Tests 03/23/18 03/23/18 03/23/18 08:22 10:00 10:10 Lactic Acid 2.2 H* Calcium Phosphorus Magnesium Total Bilirubin AST ALT Alkaline Phosphatase Troponin I 0.07 H Total Protein Urine Color Dkyellow Urine Appearance Slcloudy Urine pH 7.0 Ur Specific [place] 1.026 Urine Protein 3+ H D Urine Glucose (UA) 1+ H Urine Ketones Negative Urine Blood Negative Urine Nitrite Negative Urine Bilirubin Negative Urine Urobilinogen Negative Ur Leukocyte Esterase Negative Urine WBC (Auto) 11 Urine RBC (Auto) 12 03/23/18 03/24/18 11:03 05:20 Lactic Acid 1.8 Calcium 7.8 L Phosphorus 3.5 Magnesium 1.9 Total Bilirubin 0.8 D AST 58 H ALT 26 Alkaline Phosphatase 78 Troponin I Total Protein 6.4 Urine Color Urine Appearance Urine pH Ur Specific [place] Urine Protein Urine Glucose (UA) Urine Ketones Urine Blood Urine Nitrite Urine Bilirubin Urine Urobilinogen Ur Leukocyte Esterase Urine WBC (Auto) Urine RBC (Auto) Problem List - Problems (1) 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 Rule out flare up of eosinophilic granulomatosis with polyangiitis (Churg Valencia). The patient was started on Solumedrol 40 mg Q 8 hrs and antibiotics. Plan. Consider CT chest high resolution. Continue with same medications. Code(s): J98.4 - OTHER DISORDERS OF LUNG; M30.1 - POLYARTERITIS WITH LUNG INVOLVEMENT [CHURG-VALENCIA]
[2018-03-24 10:45] LABS: URINE APPEARANCE SLCLOUDY; URINE BILIRUBIN NEGATIVE (<2.0 mg/dL); URINE COLOR YELLOW; URINE GLUCOSE (UA) NEGATIVE (NEGATIVE); URINE KETONE TRACE (NEGATIVE); URINE LEUK ESTERASE NEGATIVE (NEGATIVE); URINE NITRITE NEGATIVE (NEGATIVE); URINE UROBILINOGEN NEGATIVE mg/dL (0.2-1.0)
[2018-03-24 10:47] LABS: URINE PROTEIN 2+ (NEGATIVE)
[2018-03-24 10:50] LABS: GRANULAR CASTS 5 /lpf; URINE HYALINE CAST 1 /lpf; URINE MUCUS RARE
[2018-03-24] MEDS ORDERED: ALBUTEROL SO4 0.042% IH SOL 1.25 MG/3 ML VIAL.NEB NEB SCH (12:00)
--- NOTE | 2018-03-24 12:09 | PN ---
Teaching Attending Note Name of Resident: Isaiah Hernandez ATTENDING PHYSICIAN STATEMENT I saw and evaluated the patient. I reviewed the resident's note and discussed the case with the resident. I agree with the resident's findings and plan as documented. SUBJECTIVE: Patient seen and examined in the ICU. OOB to chair, but still mildly tachypneic at rest. Reports difficulty in expectorating. No CP. No hemoptysis. Used NIPPV overnight. Intake & Output 03/21/18 03/22/18 03/23/18 03/24/18 23:59 23:59 23:59 23:59 Intake Total 1000 1500 Output Total 250 2950 Balance 750 -1450 Weight 142 lb 126 lb 8 oz Last Vital Signs Temp Pulse Resp BP Pulse Ox 98.2 F 127 H 24 129/91 96 03/24/18 10:00 03/24/18 10:00 03/24/18 10:00 03/24/18 10:00 03/24/18 09:11 Active Medications Acetaminophen (Tylenol -) 650 mg PO Q6H PRN PRN Reason: FEVER Albuterol Sulfate (Ventolin 0.042trength) -) 1 amp NEB QID [facility] Benzocaine/Menthol (Cepacol Lozenge -) 1 each MM PRN PRN PRN Reason: SORE THROAT Heparin Sodium (Porcine) (Heparin -) 5,000 unit SQ TID [facility] Last Admin: 03/24/18 05:44 Dose: 5,000 unit Sodium Chloride (Normal Saline -) 1,000 mls @ 125 mls/hr IV ASDIR [facility] Last Admin: 03/24/18 05:45 Dose: 125 mls/hr Piperacillin Sod/Tazobactam (Sod 4.5 gm/ Dextrose) 100 mls @ 200 mls/hr IVPB Q6H-IV [facility]ENJY PRN Reason: Protocol Last Admin: 03/24/18 10:04 Dose: 200 mls/hr Methylprednisolone Sodium Succinate (Solu-Medrol -) 40 mg IVPUSH Q8H-IV [facility] Last Admin: 03/24/18 09:04 Dose: 40 mg Pregabalin (Lyrica -) 100 mg PO BID [facility] Last Admin: 03/24/18 09:08 Dose: 100 mg Propranolol HCl (Inderal -) 10 mg PO BID [facility] Last Admin: 03/24/18 11:57 Dose: 10 mg Tiotropium [place] (Spiriva -) 1 puff IH DAILY [facility]ENJY Gen: Mildly tachypneic with speaking on NC O2 Heart: S1S2, regular Lung: distant breath sounds, no wheeze, scattered rhonchi, prolonged I:E Abd: soft, nontender Ext: no edema Laboratory Results - last 24 hr 03/23/18 03/24/18 03/24/18 10:00 05:20 05:20 WBC 8.1 D RBC 4.29 Hgb 13.4 D Hct 39.1 MCV 91.1 MCH 31.2 MCHC 34.2 RDW 15.3 Plt Count 155 D MPV 8.7 Neutrophils % 77.2 Lymphocytes % 7.3 L D Monocytes % 15.5 H D Eosinophils % 0.0 Basophils % 0.0 Puncture Site ABG pH ABG pCO2 at Pt Temp ABG pO2 at Pt Temp ABG HCO3 ABG O2 Sat (Measured) ABG O2 Content ABG Base Excess [place] Test O2 Delivery Device Oxygen Flow Rate Vent Rate PEEP Pressure Support Vent Sodium 146 H Potassium 3.6 Chloride 109 H Carbon Dioxide 27 Anion Gap 10 BUN 21 H Creatinine 0.9 Creat Clearance w eGFR > 60 Random Glucose 91 Calcium 7.8 L Phosphorus 3.5 Magnesium 1.9 Total Bilirubin 0.8 D AST 58 H ALT 26 Alkaline Phosphatase 78 Total Protein 6.4 Albumin 3.0 L Urine Color Urine Appearance Urine pH Ur Specific [place] Urine Protein Urine Glucose (UA) Urine Ketones Urine Blood Urine Nitrite Urine Bilirubin Urine Urobilinogen Ur Leukocyte Esterase Urine WBC (Auto) Urine RBC (Auto) Hyaline Casts Granular Casts Rn Acute Urine Mucus 03/24/18 03/24/18 06:00 10:40 WBC RBC Hgb Hct MCV MCH MCHC RDW Plt Count MPV Neutrophils % Lymphocytes % Monocytes % Eosinophils % Basophils % Puncture Site Right brachial ABG pH 7.35 ABG pCO2 at Pt Temp 44.2 D ABG pO2 at Pt Temp 94.3 D ABG HCO3 23.6 ABG O2 Sat (Measured) 96.8 ABG O2 Content 18.8 ABG Base Excess -1.7 [place] Test Positive O2 Delivery Device Bipap Oxygen Flow Rate 35 Vent Rate 18 PEEP 0.0 Pressure Support Vent 12/5 Sodium Potassium Chloride Carbon Dioxide Anion Gap BUN Creatinine Creat Clearance w eGFR Random Glucose Calcium Phosphorus Magnesium Total Bilirubin AST ALT Alkaline Phosphatase Total Protein Albumin Urine Color Yellow Urine Appearance Slcloudy Urine pH 5.0 D Ur Specific [place] 1.015 Urine Protein 2+ H Urine Glucose (UA) Negative Urine Ketones Trace H Urine Blood 2+ H Urine Nitrite Negative Urine Bilirubin Negative Urine Urobilinogen Negative Ur Leukocyte Esterase Negative Urine WBC (Auto) 6 Urine RBC (Auto) 8 Hyaline Casts 1 Granular Casts 5 Urine Mucus Rare ASSESSMENT AND PLAN: Acute Hypoxic and Hypercapneic Respiratory Failure Acute COPD Exacerbation r/o Pneumonia Sepsis Churg Valencia Disease HTN - IV antibiotics, can de-escalate antibiotics if cultures negative - f/u cultures - short course of medrol given COPD history and acute hypercapnea - inhaled bronchodilators standing and PRN - NIPPV to assist in work of breathing and acute hypercapnea - titrate O2 to keep SpO2 >90% - Decrease IVF - DVT prophylaxis - ICU monitoring Dr Oakley Critical care time spent in reviewing chart, evaluating patient and formulating plan - 36 minutes.
--- NOTE | 2018-03-24 12:13 | PN ---
Progress Note, Physician Chief Complaint: Remains very dyspneic in the ICU, now on NC-but stil in moderate respiratory distress History of Present Illness: Asthma/COPD Churg-Valencia vasculitis. HTN Ostheoporosis. s/p Parathyroid adenoma. - Current Medication List Current Medications: Active Medications Acetaminophen (Tylenol -) 650 mg PO Q6H PRN PRN Reason: FEVER Albuterol Sulfate (Ventolin 0.042trength) -) 1 amp NEB RQID [facility] Benzocaine/Menthol (Cepacol Lozenge -) 1 each MM PRN PRN PRN Reason: SORE THROAT Heparin Sodium (Porcine) (Heparin -) 5,000 unit SQ TID [facility] Last Admin: 03/24/18 05:44 Dose: 5,000 unit Sodium Chloride (Normal Saline -) 1,000 mls @ 125 mls/hr IV ASDIR [facility] Last Admin: 03/24/18 05:45 Dose: 125 mls/hr Piperacillin Sod/Tazobactam (Sod 4.5 gm/ Dextrose) 100 mls @ 200 mls/hr IVPB Q6H-IV [facility]ENJY PRN Reason: Protocol Last Admin: 03/24/18 10:04 Dose: 200 mls/hr Methylprednisolone Sodium Succinate (Solu-Medrol -) 40 mg IVPUSH Q8H-IV [facility] Last Admin: 03/24/18 09:04 Dose: 40 mg Pregabalin (Lyrica -) 100 mg PO BID [facility] Last Admin: 03/24/18 09:08 Dose: 100 mg Propranolol HCl (Inderal -) 10 mg PO BID [facility] Last Admin: 03/24/18 11:57 Dose: 10 mg Tiotropium [place] (Spiriva -) 1 puff IH DAILY [facility] - Objective Vital Signs: Vital Signs Temperature 98.2 F 03/24/18 10:00 Pulse Rate 127 H 03/24/18 10:00 Respiratory Rate 24 03/24/18 10:00 Blood Pressure 129/91 03/24/18 10:00 O2 Sat by Pulse Oximetry (%) 96 03/24/18 09:11 Constitutional: Yes: Anxious, Moderate Distress Eyes: Yes: Conjunctiva Clear, Diplopia HENT: Yes: Atraumatic, Normocephalic. No: Drooling, Epistaxis Neck: Yes: Supple, Trachea Midline. No: Decreased ROM, Lymphadenopathy Cardiovascular: Yes: Regular Rate and Rhythm, Tachycardia, S1, S2. No: JVD Respiratory: Yes: Cough, On Nasal O2, Rales (B/L), Rhonchi, Wheezes (B/L) Gastrointestinal: Yes: Normal Bowel Sounds, Soft. No: Abdomen, Obese, Ascites, Palpable Mass ...Rectal Exam: Yes: Deferred Genitourinary: No: Anuria, Bladder Distention, CVA Tenderness - Left, Cervantes Present, Menses Present Breast(s): Yes: WNL Musculoskeletal: No: Back Pain Extremities: No: Calf Tenderness, Cold, Cyanosis Edema: No Integumentary: No: Bruising, Incision Neurological: Yes: WNL, Alert, Oriented. No: Aphasia, Ataxia, Confusion, Dysarthria ...Motor Strength: WNL Psychiatric: Yes: WNL Labs: CBC, BMP 03/24/18 05:20 03/24/18 05:20 INR, PTT INR 1.19 (0.82-1.09) H 03/23/18 08:15 - ....Imaging X-ray: Report Reviewed (No change) Problem List - Problems (1) Respiratory distress Assessment/Plan: Continue BIPAP and F/U in the ICU Avoid sedating meds due to respiratory acidosis Code(s): R06.03 - ACUTE RESPIRATORY DISTRESS (2) Asthma with COPD Assessment/Plan: Continue Nebs Q 4 HRS IV Solumedrol 40mg IV Code(s): J44.9 - CHRONIC OBSTRUCTIVE PULMONARY DISEASE, UNSPECIFIED (3) Acute bronchitis Assessment/Plan: CXR does not show acute infiltrate. 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 Mendoza today. CT chest high resolution ordered-P Code(s): J98.4 - OTHER DISORDERS OF LUNG; M30.1 - POLYARTERITIS WITH LUNG INVOLVEMENT [CHURG-VALENCIA]
--- NOTE | 2018-03-24 13:06 | PN ---
Physical Exam: SUBJECTIVE: Patient seen and examined in ICU. Required bipap overnight. No other acute events. Now off bipap, tolerating nasal cannula, but still tachypneic. OBJECTIVE: Vital Signs Period Temp Pulse Resp BP Sys/Sow Pulse Ox Last 24 Hr 98.2 F-99.9 F 88-128 18-32 85-129/71-99 89-100 GENERAL: The patient is awake, alert, and fully oriented HEAD: Normal with no signs of trauma. EYES: PERRL, extraocular movements intact, sclera anicteric, conjunctiva clear. ENT: Ears normal, nares patent, oropharynx clear without exudates, moist mucous membranes. NECK: Trachea midline, full range of motion, supple. LUNGS: Breath sounds equal, clear to auscultation bilaterally, mild accessory muscle use. HEART: Regular rate and rhythm, S1, S2 without murmur, rub or gallop. ABDOMEN: Soft, nontender, nondistended, no guarding, no rebound EXTREMITIES: 2+ pulses, warm, well-perfused, no edema. NEUROLOGICAL: Cranial nerves II through XII grossly intact. Normal speech, gait not observed. Laboratory Results - last 24 hr 03/23/18 03/24/18 03/24/18 10:00 05:20 05:20 WBC 8.1 D RBC 4.29 Hgb 13.4 D Hct 39.1 MCV 91.1 MCH 31.2 MCHC 34.2 RDW 15.3 Plt Count 155 D MPV 8.7 Neutrophils % 77.2 Lymphocytes % 7.3 L D Monocytes % 15.5 H D Eosinophils % 0.0 Basophils % 0.0 Puncture Site ABG pH ABG pCO2 at Pt Temp ABG pO2 at Pt Temp ABG HCO3 ABG O2 Sat (Measured) ABG O2 Content ABG Base Excess [place] Test O2 Delivery Device Oxygen Flow Rate Vent Rate PEEP Pressure Support Vent Sodium 146 H Potassium 3.6 Chloride 109 H Carbon Dioxide 27 Anion Gap 10 BUN 21 H Creatinine 0.9 Creat Clearance w eGFR > 60 Random Glucose 91 Calcium 7.8 L Phosphorus 3.5 Magnesium 1.9 Total Bilirubin 0.8 D AST 58 H ALT 26 Alkaline Phosphatase 78 Total Protein 6.4 Albumin 3.0 L Urine Color Urine Appearance Urine pH Ur Specific [place] Urine Protein Urine Glucose (UA) Urine Ketones Urine Blood Urine Nitrite Urine Bilirubin Urine Urobilinogen Ur Leukocyte Esterase Urine WBC (Auto) Urine RBC (Auto) Hyaline Casts Granular Casts Problem Manager Urine Mucus 03/24/18 03/24/18 06:00 10:40 WBC RBC Hgb Hct MCV MCH MCHC RDW Plt Count MPV Neutrophils % Lymphocytes % Monocytes % Eosinophils % Basophils % Puncture Site Right brachial ABG pH 7.35 ABG pCO2 at Pt Temp 44.2 D ABG pO2 at Pt Temp 94.3 D ABG HCO3 23.6 ABG O2 Sat (Measured) 96.8 ABG O2 Content 18.8 ABG Base Excess -1.7 [place] Test Positive O2 Delivery Device Bipap Oxygen Flow Rate 35 Vent Rate 18 PEEP 0.0 Pressure Support Vent 12/5 Sodium Potassium Chloride Carbon Dioxide Anion Gap BUN Creatinine Creat Clearance w eGFR Random Glucose Calcium Phosphorus Magnesium Total Bilirubin AST ALT Alkaline Phosphatase Total Protein Albumin Urine Color Yellow Urine Appearance Slcloudy Urine pH 5.0 D Ur Specific [place] 1.015 Urine Protein 2+ H Urine Glucose (UA) Negative Urine Ketones Trace H Urine Blood 2+ H Urine Nitrite Negative Urine Bilirubin Negative Urine Urobilinogen Negative Ur Leukocyte Esterase Negative Urine WBC (Auto) 6 Urine RBC (Auto) 8 Hyaline Casts 1 Granular Casts 5 Urine Mucus Rare Active Medications Generic Name Dose Route Start Last Admin Trade Name Freq PRN Reason Stop Dose Admin Acetaminophen 650 mg 03/23/18 22:05 Tylenol - PO Q6H PRN FEVER Albuterol Sulfate 1 amp 03/24/18 16:00 Ventolin 0.042trength) - NEB RQID BENJY Benzocaine/Menthol 1 each 03/23/18 20:32 Cepacol Lozenge - MM PRN PRN SORE THROAT Heparin Sodium (Porcine) 5,000 unit 03/23/18 14:00 03/24/18 05:44 Heparin - SQ 5,000 unit TID [facility]ENJY Administration Sodium Chloride 1,000 mls @ 125 mls/hr 03/23/18 12:45 03/24/18 05:45 Normal Saline - IV 125 mls/hr ASDIR [facility] Administration Piperacillin Sod/Tazobactam 100 mls @ 200 mls/hr 03/23/18 18:00 03/24/18 10: 04 Sod 4.5 gm/ Dextrose IVPB 200 mls/hr Q6H-IV [facility]EN[facility]Y Administration Protocol Methylprednisolone Sodium Succinate 40 mg 03/23/18 13:45 03/24/18 09:04 Solu-Medrol - IVPUSH 40 mg Q8H-IV [facility]Y Administration Pregabalin 100 mg 03/23/18 22:00 03/24/18 09:08 Lyrica - PO 100 mg BID [facility]EN[facility]Y Administration Propranolol HCl 10 mg 03/23/18 22:00 03/24/18 11:57 Inderal - PO 10 mg BID [facility]EN[facility]Y Administration Tiotropium [place] 1 puff 03/24/18 18:00 Spiriva - IH DAILY BENJY ASSESSMENT/PLAN: Patient is a 77F with history of COPD, HTN, 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 Respiratory #Respiratory distress with respiratory acidosis - Bipap weaned - Etiology COPD exacerbation vs pneumonia, will cover with zosyn due to patient' s immunocompromised status and failed azithromycin tx - CXR shows diffuse chronic lung disease - Methylprednisone 40 q8h - Spiriva daily, albuterol PRN - CT chest planed per primary team ID #Severe sepsis 2/2 possible pneumonia - Tachypneic, white count 16, tachycardic, + source with lactate. BPs stable. - Lactate 2.2, cleared to 1.8 with 1L - No signs of fluid overload, will give additional liter and place on 125cc/hr maintenance - Zosyn due to patients ic status and failed azithromycin tx FEN/GI -NPO until bipap weaned -125cc/hr fluids -Will replete as necessary PPx - heparin and protonix Dispo -continued ICU monitoring Visit type - Emergency Visit Emergency Visit: Yes ED Registration Date: 03/23/18 Care time: The patient presented to the Emergency Department on the above date and was hospitalized for further evaluation of their emergent condition. - New Patient This patient is new to me today: No - Critical Care Critical Care patient: Yes Total Critical Care Time (in minutes): 35 Critical Care Statement: The care of this patient involved high complexity decision making to prevent further life threatening deterioration of the patient 's condition and/or to evaluate & treat vital organ system(s) failure or risk of failure.
[2018-03-24] MEDS ORDERED: ALBUTEROL SO4 2.5/IPRATROPIUM 0.5 INH SOL 3 ML VIAL.NEB. NEB ONE (14:04)
[2018-03-24] MEDS: ALBUTEROL SO4 0.042% IH SOL 1.25 MG/3 ML VIAL.NEB NEB SCH ×2 (14:15→19:50)
[2018-03-24] MEDS: TIOTROPIUM BROMIDE 18 MCG CAPSULES IH SCH (17:18)
[2018-03-24] MEDS ORDERED: TIOTROPIUM BROMIDE 18 MCG CAPSULES IH SCH (18:00)
[2018-03-25] MEDS ORDERED: PIPERACILLIN/TAZOBACTAM 4.5 GM VIAL IVPB ONE ×2 (00:43→08:54)
[2018-03-25] MEDS ORDERED: DEXTROSE 5%-WATER 100 ML IVPB ONE ×3 (00:43→13:47)
[2018-03-25] MEDS: methylPREDNISolone NA SUCC 40 MG/1 ML VIAL IVPUSH SCH ×3 (01:01→21:38)
[2018-03-25] MEDS: PIPERACILLIN/TAZOB 4.5 GM 4.5 GM in DEXTROSE 5%-WATER 100 ML IVPB SCH ×2 (03:00→09:03)
[2018-03-25 06:00] LABS: BASO % 0.1 % (0-2.0); EOS % 0.1 % (0-4.5); HEMATOCRIT 38.6 % (32.4-45.2); LYMPH % 9.8 % (8-40); MCHC 33.7 g/dl (32.0-36.0); MEAN CELL VOLUME 91.9 fl (80-96); MEAN PLT VOLUME 8.6 fl (7.5-11.1); MONO % 8.2 % (3.8-10.2); NEUT % 81.8 % (42.8-82.8); PLATELET COUNT 168 K/MM3 (134-434); WHITE BLOOD COUNT 6.8 K/mm3 (4.0-10.0)
[2018-03-25] MEDS: HEPARIN NA (PORCINE) 5,000 UNITS/ML 1ML VIAL SQ SCH ×3 (06:22→21:38)
[2018-03-25 06:36] LABS: ALBUMIN 2.8 g/dl (3.4-5.0); ALK PHOS 137 U/L (45-117); ANION GAP 12 (8-16); BILIRUBIN,TOTAL 0.8 mg/dL (0.2-1.0); BLOOD UREA NITROGEN 24 mg/dL (7-18); CALCIUM 7.8 mg/dL (8.5-10.1); CHLORIDE 109 mmol/L (98-107); CO2 26 mmol/L (21-32); GLUCOSE,RANDOM 124 mg/dL (74-106); MAGNESIUM 1.9 mg/dL (1.8-2.4); PHOSPHOROUS 2.4 mg/dL (2.5-4.9); POTASSIUM 3.5 mmol/L (3.5-5.1); SGOT/AST 110 U/L (15-37); SGPT/ALT 56 U/L (12-78); SODIUM 147 mmol/L (136-145); TOT PROT 6.2 g/dl (6.4-8.2)
[2018-03-25] MEDS ORDERED: ALBUTEROL SO4 0.083% IH SOL 2.5 MG/3 ML VIAL.NEB. NEB ONE (06:54)
[2018-03-25] MEDS: ALBUTEROL SO4 0.042% IH SOL 1.25 MG/3 ML VIAL.NEB NEB SCH ×4 (07:08→21:36)
[2018-03-25] MEDS ORDERED: SODIUM CHLORIDE 1,000 ML IV SCH (07:42)
--- NOTE | 2018-03-25 07:49 | PN ---
Progress Note, Physician Chief Complaint: Remains dyspneic in the ICU-now on BIPAP. HRCT chest-P Noted runs of rapid VR on the Monitor-AF vs SVT/AT History of Present Illness: Asthma/COPD Churg-Valencia vasculitis. HTN Ostheoporosis. s/p Parathyroid adenoma. - Current Medication List Current Medications: Active Medications Acetaminophen (Tylenol -) 650 mg PO Q6H PRN PRN Reason: FEVER Albuterol Sulfate (Ventolin 0.042trength) -) 1 amp NEB RQID [facility] Last Admin: 03/24/18 19:50 Dose: 1 amp Benzocaine/Menthol (Cepacol Lozenge -) 1 each MM PRN PRN PRN Reason: SORE THROAT Heparin Sodium (Porcine) (Heparin -) 5,000 unit SQ TID [facility] Last Admin: 03/25/18 06:22 Dose: 5,000 unit Piperacillin Sod/Tazobactam (Sod 4.5 gm/ Dextrose) 100 mls @ 200 mls/hr IVPB Q6H-IV [facility] PRN Reason: Protocol Last Admin: 03/25/18 03:00 Dose: 200 mls/hr Sodium Chloride (Normal Saline -) 1,000 mls @ 75 mls/hr IV ASDIR [facility] Methylprednisolone Sodium Succinate (Solu-Medrol -) 40 mg IVPUSH Q8H-IV [facility] Last Admin: 03/25/18 01:01 Dose: 40 mg Pregabalin (Lyrica -) 100 mg PO BID [facility] Last Admin: 03/24/18 21:12 Dose: 100 mg Propranolol HCl (Inderal -) 10 mg PO BID [facility] Last Admin: 03/24/18 21:12 Dose: 10 mg Tiotropium [place] (Spiriva -) 1 puff IH DAILY [facility] Last Admin: 03/24/18 17:18 Dose: 1 puff - Objective Vital Signs: Vital Signs Temperature 98.0 F 03/25/18 05:57 Pulse Rate 80 03/25/18 05:57 Respiratory Rate 20 03/25/18 05:57 Blood Pressure 132/81 03/25/18 05:57 O2 Sat by Pulse Oximetry (%) 98 03/25/18 06:35 Constitutional: Yes: Anxious, Moderate Distress Eyes: Yes: Conjunctiva Clear, EOM Intact HENT: Yes: Atraumatic, Normocephalic Neck: Yes: Supple, Trachea Midline. No: Decreased ROM Cardiovascular: Yes: Pulse Irregular, Murmur, S1, S2 Respiratory: Yes: Rales, Rhonchi, Wheezes Gastrointestinal: Yes: Normal Bowel Sounds, Soft. No: Abdomen, Obese ...Rectal Exam: Yes: Deferred Genitourinary: No: Anuria, Bladder Distention, CVA Tenderness - Left, CVA Tenderness - Right Breast(s): Yes: WNL Extremities: No: Amputation, Calf Tenderness, Cold Edema: No Peripheral Pulses WNL: Yes Neurological: Yes: Alert, Oriented. No: Aphasia, Asterixis, Ataxia, Confusion, Lethargy ...Motor Strength: WNL Psychiatric: Yes: WNL Labs: CBC, BMP 03/25/18 05:40 INR, PTT INR 1.19 (0.82-1.09) H 03/23/18 08:15 Problem List - Problems (1) Respiratory distress Assessment/Plan: Continue BIPAP and F/U in the ICU Avoid sedating meds due to respiratory acidosis Code(s): R06.03 - ACUTE RESPIRATORY DISTRESS (2) Asthma with COPD Assessment/Plan: Continue Nebs Q 4 HRS IV Solumedrol 40mg IV Code(s): J44.9 - CHRONIC OBSTRUCTIVE PULMONARY DISEASE, UNSPECIFIED (3) Acute bronchitis Assessment/Plan: CXR does not show acute infiltrate. 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 Mendoza today. CT chest high resolution ordered-P Code(s): J98.4 - OTHER DISORDERS OF LUNG; M30.1 - POLYARTERITIS WITH LUNG INVOLVEMENT [CHURG-VALENCIA] (5) Arrhythmia Assessment/Plan: Cardiology consult Continue monitoring Code(s): I49.9 - CARDIAC ARRHYTHMIA, UNSPECIFIED Qualifiers: Atrial fibrillation type: paroxysmal
[2018-03-25] MEDS: TIOTROPIUM BROMIDE 18 MCG CAPSULES IH SCH (09:04)
[2018-03-25] MEDS: PREGABALIN 50 MG CAPSULE PO SCH ×2 (09:04→21:38)
[2018-03-25] MEDS: LACTATED RINGERS SOLUTION 1,000 ML/1,000 ML INFUS.BAG IV SCH (09:45)
[2018-03-25] MEDS ORDERED: ALBUTEROL SO4 0.083% IH SOL 2.5 MG/3 ML VIAL.NEB. NEB PRN (10:35)
--- NOTE | 2018-03-25 10:45 | PN ---
Physical Exam: SUBJECTIVE: Patient states she had a rough night, mainly due to difficulty in breathing, and had to use bipap. OBJECTIVE: Vital Signs Period Temp Pulse Resp BP Sys/Sow Pulse Ox Last 24 Hr 98.0 F-99.7 F 71-114 18-25 99-136/70-94 95-100 GENERAL: AAO x 3, NAD EYES: PERRLA ENT: oropharynx clear without exudates LUNGS:CTAB HEART: RRR S1, S2 without murmur, rub or gallop. ABDOMEN: Soft, nontender, nondistended, no guarding, no rebound EXTREMITIES: 2+ pulses, warm, well-perfused, no edema. Laboratory Results - last 24 hr 03/24/18 03/25/18 03/25/18 10:40 05:40 05:40 WBC 6.8 RBC 4.20 Hgb 13.0 Hct 38.6 MCV 91.9 MCH 31.0 MCHC 33.7 RDW 15.0 Plt Count 168 MPV 8.6 Neutrophils % 81.8 Lymphocytes % 9.8 D Monocytes % 8.2 Eosinophils % 0.1 D Basophils % 0.1 D Sodium 147 H Potassium 3.5 Chloride 109 H Carbon Dioxide 26 Anion Gap 12 BUN 24 H Creatinine 1.0 Creat Clearance w eGFR 53.91 Random Glucose 124 H Calcium 7.8 L Phosphorus 2.4 L Magnesium 1.9 Total Bilirubin 0.8 AST 110 H ALT 56 Alkaline Phosphatase 137 H Total Protein 6.2 L Albumin 2.8 L Urine Color Yellow Urine Appearance Slcloudy Urine pH 5.0 D Ur Specific [place] 1.015 Urine Protein 2+ H Urine Glucose (UA) Negative Urine Ketones Trace H Urine Blood 2+ H Urine Nitrite Negative Urine Bilirubin Negative Urine Urobilinogen Negative Ur Leukocyte Esterase Negative Urine WBC (Auto) 6 Urine RBC (Auto) 8 Hyaline Casts 1 Granular Casts 5 Urine Mucus Rare Active Medications Generic Name Dose Route Start Last Admin Trade Name Freq PRN Reason Stop Dose Admin Acetaminophen 650 mg 03/23/18 22:05 Tylenol - PO Q6H PRN FEVER Albuterol Sulfate 1 amp 03/24/18 16:00 03/25/18 07:08 Ventolin 0.042trength) - NEB 1 amp RQID [facility] Administration Albuterol Sulfate 1 amp 03/25/18 10:35 Ventolin 0.083% Nebulizer Soln - NEB Q4H PRN SHORT OF BREATH/WHEEZING Benzocaine/Menthol 1 each 03/23/18 20:32 Cepacol Lozenge - MM PRN PRN SORE THROAT Heparin Sodium (Porcine) 5,000 unit 03/23/18 14:00 03/25/18 06:22 Heparin - SQ 5,000 unit TID [facility] Administration Lactated Ringer's 1,000 ml in 1,000 mls @ 75 mls/hr 03/25/18 09:45 Lactated Ringers Solution IV ASDIR [facility] Ceftriaxone Sodium 2 gm in 50 mls @ 100 mls/hr 03/26/18 14:00 Ceftriaxone 2 Gm-D5w Bag IVPB DAILY [facility] Protocol Methylprednisolone Sodium Succinate 40 mg 03/25/18 22:00 Solu-Medrol - IVPUSH BID [facility] Pregabalin 100 mg 03/23/18 22:00 03/25/18 09:04 Lyrica - PO 100 mg BID [facility] Administration Propranolol HCl 10 mg 03/23/18 22:00 03/25/18 09:13 Inderal - PO 10 mg BID [facility] Administration Tiotropium [place] 1 puff 03/24/18 18:00 03/25/18 09:04 Spiriva - IH 1 puff DAILY [facility] Administration ASSESSMENT/PLAN: Patient is a 77F with history of COPD, HTN, 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 Respiratory Acute on chronic hypoxemic respiratory failure - COPD exacerbation vs. PNA - Cont. to wean off bipap - Changed solu-medrol 40mg IV Q8H to Q12H - Spiriva daily, albuterol PRN - CT chest ID Severe sepsis - d/c fluid due to hypernatremia and pt eating - Changed abx from zosyn to rocephin, starting PM Renal Hypernatremia - d/c NS - Encourage free water intake Rheum Churg valencia disease - Stable, Not in exacerbation FEN/GI - d/c fluid - Regular diet PPx - heparin Dispo -continued ICU monitoring Visit type - Emergency Visit Emergency Visit: No - New Patient This patient is new to me today: No - Critical Care Critical Care patient: Yes Total Critical Care Time (in minutes): 35 Critical Care Statement: The care of this patient involved high complexity decision making to prevent further life threatening deterioration of the patient 's condition and/or to evaluate & treat vital organ system(s) failure or risk of failure.
--- NOTE | 2018-03-25 11:19 | PN ---
Teaching Attending Note Name of Resident: Deshawn Aquino ATTENDING PHYSICIAN STATEMENT I saw and evaluated the patient. I reviewed the resident's note and discussed the case with the resident. I agree with the resident's findings and plan as documented. SUBJECTIVE: Pt seen and examined in the ICU. Episode of dyspnea overnight requiring BiPAP, now back on nasal cannula. States breathing is improving. Cough and wheezing less. OBJECTIVE: Last Vital Signs Temp Pulse Resp BP Pulse Ox 98.1 F 75 19 99/77 99 03/25/18 10:00 03/25/18 10:00 03/25/18 10:00 03/25/18 10:03/25/18 08:00 Intake & Output 03/22/18 03/23/18 03/24/18 03/25/18 23:59 23:59 23:59 23:59 Intake Total 1000 3800 2225 Output Total 250 3400 500 Balance 935 696 2235 Weight 64.41 kg 57.379 kg 58.8 kg Gen: NAD in chair Heart: RRR Lung: distant breath sounds, no wheezes, basilar rales Abd: soft, nontender Ext: no edema CBC, BMP 03/25/18 05:40 03/25/18 05:40 Active Medications Acetaminophen (Tylenol -) 650 mg PO Q6H PRN PRN Reason: FEVER Albuterol Sulfate (Ventolin 0.042trength) -) 1 amp NEB RQID [facility] Last Admin: 03/25/18 07:08 Dose: 1 amp Albuterol Sulfate (Ventolin 0.083% Nebulizer Soln -) 1 amp NEB Q4H PRN PRN Reason: SHORT OF BREATH/WHEEZING Benzocaine/Menthol (Cepacol Lozenge -) 1 each MM PRN PRN PRN Reason: SORE THROAT Heparin Sodium (Porcine) (Heparin -) 5,000 unit SQ TID [facility] Last Admin: 03/25/18 06:22 Dose: 5,000 unit Lactated Ringer's (Lactated Ringers Solution) 1,000 ml in 1,000 mls @ 75 mls/ hr IV ASDIR [facility] Ceftriaxone Sodium 2 gm/ (Dextrose) 100 mls @ 200 mls/hr IVPB DAILY [facility] PRN Reason: Protocol Methylprednisolone Sodium Succinate (Solu-Medrol -) 40 mg IVPUSH BID [facility] Pregabalin (Lyrica -) 100 mg PO BID [facility] Last Admin: 03/25/18 09:04 Dose: 100 mg Propranolol HCl (Inderal -) 10 mg PO BID [facility] Last Admin: 03/25/18 09:13 Dose: 10 mg Tiotropium [place] (Spiriva -) 1 puff IH DAILY [facility] Last Admin: 03/25/18 09:04 Dose: 1 puff ASSESSMENT AND PLAN: Acute Hypoxic and Hypercapneic Respiratory Failure improving Acute COPD Exacerbation r/o Pneumonia Sepsis Churg Valencia Disease HTN - change zosyn to ceftriaxone forempiric coverage - decrease medrol dosing - inhaled bronchodilators standing and PRN - BiPAP as needed to assist in work of breathing - titrate O2 to keep SpO2 >90% - DVT prophylaxis - continue ICU monitoring critical care time spent in reviewing chart, evaluating patient and formulating plan 35 min
--- NOTE | 2018-03-25 13:50 | CON.CARD ---
Consult Consult Specialty:: Cardiology Referred by:: Dr. Zepeda Reason for Consultation:: Dyspnea - History of Present Illness Chief Complaint: Dyspnea History of Present Illness: 77yo female with h/o HTN, COPD, Churg Valencia Syndrome admitted with worsening shortness of breath, subjective fevers and generalized weakness despite being on azithromycin the past week without significant improvement. ABG showing acute respiratory acidosis, initial placed on BiPAP with BD, steroids with subjective improvement. Telemetry shows atrial tachyarrhythmia. - History Source History Provided By: Patient Limitations to Obtaining History: No Limitations - Past Medical History [employer]: No: Alzheimer's, CVA, Dementia, Migraine, Multiple Sclerosis, Peripheral Neuropathy, Parkinson's, Seizure, Syncope, TIA, Vertigo, Other Pulmonary: Yes: Asthma, COPD, Other (Churg-valencia vasculitis.) Gastrointestinal: No: Ascites, Cancer, Constipation Hepatobiliary: No: Cirrhosis, Cholelithiasis, Cholecystitis, Choledocholithiasis , Hepatitis A, Hepatitis B, Hepatitis C, Other Renal/: No: Renal Failure, Renal Inusuff, BPH, Cancer, Hematuria, Hemodialysis , Neurogenic Bladder, Renal Calculi, UTI, Other Infectious Disease: No: AIDS, C-Diff, Herpes Zoster, HIV, MRSA, STD's, Tuberculosis, VREF, Other Musculoskeletal: No: Bursitis, Chronic low back pain, Hemiparesis, Hemiplegia, Osteoarthritis, Paraplegia, Other Rheumatology: Yes: Vasculitis ENT: No: Allergic Rhinitis, Sinusitis, Other Dermatology: No: Basal Cell, Cellulitis, Eczema, Melanoma, Psoriasis, Squamous Cell, Other - Smoking History Smoking history: Unknown if ever smoked Home Medications - Allergies Allergies/Adverse Reactions: Allergies Allergy/AdvReac Type Severity Reaction Status Date / Time No Known Allergies Allergy Verified 03/23/18 08:20 - Home Medications Home Medications: Ambulatory Orders Albuterol Sulfate Inhaler - [Ventolin Hfa Inhaler -] 1 - 2 inh PO Q4H PRN Alendronate Na [Fosamax] 70 mg PO WEEKLY 03/23/18 Amlodipine Besylate 5 mg PO DAILY 03/23/18 Azithromycin [Zithromax -] 1 gm PO ASDIR 03/23/18 Fluticasone Prop 0.05% Nasal [Flonase -] 1 spray NS ASDIR 03/23/18 Folic Acid 1 mg PO DAILY 03/23/18 Methotrexate Sodium [Methotrexate] 15 mg PO WEEKLY 03/23/18 Pregabalin [Lyrica] 100 mg PO BID 03/23/18 Propranolol HCl 10 mg PO BID 03/23/18 Tiotropium [place] [Spiriva] 1 inh PO DAILY 03/23/18 predniSONE [Deltasone -] 1 mg PO ASDIR 03/23/18 Review of Systems - Review of Systems Constitutional: reports: Fever Respiratory: reports: Cough, Wheezing Vital Signs: Vital Signs Temperature 98.1 F 03/25/18 12:00 Pulse Rate 72 03/25/18 12:00 Respiratory Rate 18 03/25/18 12:00 Blood Pressure 122/77 03/25/18 12:00 O2 Sat by Pulse Oximetry (%) 98 03/25/18 11:49 Constitutional: Yes: No Distress, Calm Neck: Yes: Supple Respiratory: Yes: Regular, Diminished Gastrointestinal: Yes: Normal Bowel Sounds, Soft Cardiovascular: Yes: Regular Rate and Rhythm JVD: No Carotid Bruit: No Heart Sounds: Yes: S1, S2 Murmur: Yes: Systolic Murmur Edema: No - Other Data Labs, Other Data: CBC, BMP 03/25/18 05:40 03/25/18 05:40 INR, PTT INR 1.19 (0.82-1.09) H 03/23/18 08:15 ST@123 Imaging - Results Chest X-ray: Report Reviewed (Right basilar opacity) Problem List - Problems (1) Acute bronchitis Code(s): J20.9 - ACUTE BRONCHITIS, UNSPECIFIED Qualifiers: Bronchitis organism: unspecified organism Qualified Code(s): J20.9 - Acute bronchitis, unspecified (2) Arrhythmia Code(s): I49.9 - CARDIAC ARRHYTHMIA, UNSPECIFIED Qualifiers: Atrial fibrillation type: paroxysmal (3) Asthma with COPD Code(s): J44.9 - CHRONIC OBSTRUCTIVE PULMONARY DISEASE, UNSPECIFIED (4) 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 Acute Hypoxic and Hypercapneic Respiratory Failure improving 2. Acute COPD Exacerbation 3. Churg Valencia Disease 4. Atrial tachyarrhythmia r/o PAF vs PAT 5. HTN P:1. Check echo, holter to elucidate arrhythmia burden, TSH 2. Empiric abx course, BD, steroid taper, titrate O2 to keep SpO2 >90%, BiPAP as needed to assist in work of breathing 3. DVT prophylaxis 4. F/u HR chest CT 5. Thank you for consultative opportunity
[2018-03-25] MEDS: CEFTRIAXONE 2 GM in DEXTROSE 5%-WATER 100 ML IVPB SCH (13:55)
[2018-03-26] MEDS: HEPARIN NA (PORCINE) 5,000 UNITS/ML 1ML VIAL SQ SCH ×3 (06:23→21:24)
[2018-03-26 07:03] LABS: ALBUMIN 2.7 g/dl (3.4-5.0); ANION GAP 3 (8-16); BILIRUBIN,TOTAL 0.4 mg/dL (0.2-1.0); BLOOD UREA NITROGEN 29 mg/dL (7-18); CALCIUM 8.1 mg/dL (8.5-10.1); CHLORIDE 110 mmol/L (98-107); CO2 32 mmol/L (21-32); CREATININE 0.9 mg/dL (0.55-1.02); GLUCOSE,RANDOM 102 mg/dL (74-106); POTASSIUM 3.6 mmol/L (3.5-5.1); SGOT/AST 48 U/L (15-37); SGPT/ALT 40 U/L (12-78); SODIUM 145 mmol/L (136-145); TOT PROT 6.1 g/dl (6.4-8.2)
[2018-03-26 07:11] LABS: ALK PHOS 102 U/L (45-117)
--- NOTE | 2018-03-26 07:29 | PN ---
Progress Note, Physician Chief Complaint: Less dyspmeic in the ICU, now resting on NC O2 with O2SAT 100% Spoke to Maria Victoria daughter and updated on patient's condition. CT chest done-official reading-pending. History of Present Illness: Asthma/COPD Churg-Valencia vasculitis. HTN Ostheoporosis. s/p Parathyroid adenoma. - Current Medication List Current Medications: Active Medications Acetaminophen (Tylenol -) 650 mg PO Q6H PRN PRN Reason: FEVER Albuterol Sulfate (Ventolin 0.042trength) -) 1 amp NEB RQID [facility] Last Admin: 03/25/18 21:36 Dose: 1 amp Albuterol Sulfate (Ventolin 0.083% Nebulizer Soln -) 1 amp NEB Q4H PRN PRN Reason: SHORT OF BREATH/WHEEZING Benzocaine/Menthol (Cepacol Lozenge -) 1 each MM PRN PRN PRN Reason: SORE THROAT Heparin Sodium (Porcine) (Heparin -) 5,000 unit SQ TID [facility] Last Admin: 03/26/18 06:23 Dose: 5,000 unit Lactated Ringer's (Lactated Ringers Solution) 1,000 ml in 1,000 mls @ 75 mls/ hr IV ASDIR [facility] Last Admin: 03/25/18 09:45 Dose: Not Given Ceftriaxone Sodium 2 gm/ (Dextrose) 100 mls @ 200 mls/hr IVPB DAILY [facility] PRN Reason: Protocol Last Admin: 03/25/18 13:55 Dose: 200 mls/hr Methylprednisolone Sodium Succinate (Solu-Medrol -) 40 mg IVPUSH BID [facility] Last Admin: 03/25/18 21:38 Dose: 40 mg Pregabalin (Lyrica -) 100 mg PO BID [facility] Last Admin: 03/25/18 21:38 Dose: 100 mg Propranolol HCl (Inderal -) 10 mg PO BID [facility] Last Admin: 03/25/18 21:37 Dose: 10 mg Tiotropium [place] (Spiriva -) 1 puff IH DAILY [facility] Last Admin: 03/25/18 09:04 Dose: 1 puff - Objective Vital Signs: Vital Signs Temperature 97.3 F L 03/26/18 06:00 Pulse Rate 71 03/26/18 06:00 Respiratory Rate 17 03/26/18 06:00 Blood Pressure 132/79 03/26/18 06:00 O2 Sat by Pulse Oximetry (%) 97 03/26/18 05:15 Constitutional: Yes: Calm, Mild Distress Eyes: Yes: Conjunctiva Clear, EOM Intact, PERRL HENT: Yes: Atraumatic, Normocephalic. No: Drooling, Epistaxis, Hoarseness, Nasal Congestion, Rhinnorhea Neck: Yes: Trachea Midline. No: Decreased ROM, Lymphadenopathy, Tenderness, Thyromegaly Cardiovascular: Yes: Pulse Irregular, S1, S2. No: Bradycardia, JVD, Gallop, Rub Respiratory: Yes: Regular, On Nasal O2, Rales (RLL >LLL), Rhonchi, SOB, SOB on Exertion, Wheezes. No: Accessory Muscle Use Gastrointestinal: Yes: Soft. No: Abdomen, Obese, Ascites, Hepatomegaly, Palpable Mass, Pulsatile Mass, Tenderness ...Rectal Exam: Yes: Deferred Genitourinary: No: Anuria, Bladder Distention Breast(s): Yes: WNL Musculoskeletal: No: Joint Stiffness, Joint Swelling Extremities: No: Amputation, Calf Tenderness, Cold, Cyanosis Edema: LLE: Trace, RLE: Trace Integumentary: Yes: WNL Neurological: Yes: Alert, Oriented. No: Aphasia, Asterixis, Paresthesia ...Motor Strength: WNL Psychiatric: Yes: WNL Labs: CBC, BMP 03/25/18 05:40 INR, PTT INR 1.19 (0.82-1.09) H 03/23/18 08:15 - ....Imaging Cat Scan: Image Reviewed Problem List - Problems (1) Respiratory distress Assessment/Plan: Improving with current treatment Code(s): R06.03 - ACUTE RESPIRATORY DISTRESS (2) Asthma with COPD Assessment/Plan: Continue Nebs Q 4 HRS IV Solumedrol 40mg IV now BID Code(s): J44.9 - CHRONIC OBSTRUCTIVE PULMONARY DISEASE, UNSPECIFIED (3) Acute bronchitis Assessment/Plan: . 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 Code(s): J98.4 - OTHER DISORDERS OF LUNG; M30.1 - POLYARTERITIS WITH LUNG INVOLVEMENT [CHURG-VALENCIA] (5) Arrhythmia Assessment/Plan: Cardiology consult Continue monitoring Code(s): I49.9 - CARDIAC ARRHYTHMIA, UNSPECIFIED Qualifiers: Atrial fibrillation type: paroxysmal
[2018-03-26] MEDS ORDERED: MAGNESIUM HYDROX 2400MG/30ML ORAL SUSPENSION 30 ML CUP PO PRN ×2 (07:30→18:35)
[2018-03-26] MEDS: ALBUTEROL SO4 0.042% IH SOL 1.25 MG/3 ML VIAL.NEB NEB SCH ×4 (08:10→21:30)
[2018-03-26] MEDS ORDERED: DEXTROSE 5%-WATER 100 ML IVPB ONE (09:44)
[2018-03-26] MEDS: LACTATED RINGERS SOLUTION 1,000 ML/1,000 ML INFUS.BAG IV SCH (09:45)
[2018-03-26] MEDS ORDERED: POLYETHYLENE GLYCOL 3350 119 GM BTL PO SCH (10:00)
[2018-03-26] MEDS ORDERED: CEFTRIAXONE 2 GM-D5W BAG 2 GM/50 ML BAG IVPB SCH (10:00)
--- NOTE | 2018-03-26 10:04 | PN ---
Progress Note, Physician History of Present Illness: Dyspnea improving, holter and echo performed. - Current Medication List Current Medications: Active Medications Acetaminophen (Tylenol -) 650 mg PO Q6H PRN PRN Reason: FEVER Albuterol Sulfate (Ventolin 0.042trength) -) 1 amp NEB RQID [facility] Last Admin: 03/26/18 08:10 Dose: 1 amp Albuterol Sulfate (Ventolin 0.083% Nebulizer Soln -) 1 amp NEB Q4H PRN PRN Reason: SHORT OF BREATH/WHEEZING Benzocaine/Menthol (Cepacol Lozenge -) 1 each MM PRN PRN PRN Reason: SORE THROAT Heparin Sodium (Porcine) (Heparin -) 5,000 unit SQ TID [facility] Last Admin: 03/26/18 06:23 Dose: 5,000 unit Lactated Ringer's (Lactated Ringers Solution) 1,000 ml in 1,000 mls @ 75 mls/ hr IV ASDIR [facility] Last Admin: 03/25/18 09:45 Dose: Not Given Ceftriaxone Sodium 2 gm/ (Dextrose) 100 mls @ 200 mls/hr IVPB DAILY [facility] PRN Reason: Protocol Last Admin: 03/25/18 13:55 Dose: 200 mls/hr Magnesium Hydroxide (Milk Of Magnesia -) 30 ml PO DAILY PRN PRN Reason: CONSTIPATION Methylprednisolone Sodium Succinate (Solu-Medrol -) 40 mg IVPUSH BID [facility] Last Admin: 03/25/18 21:38 Dose: 40 mg Polyethylene Glycol (Miralax (For Daily Use) -) 17 gm PO DAILY [facility] Pregabalin (Lyrica -) 100 mg PO BID [facility] Last Admin: 03/25/18 21:38 Dose: 100 mg Propranolol HCl (Inderal -) 10 mg PO BID [facility] Last Admin: 03/25/18 21:37 Dose: 10 mg Tiotropium [place] (Spiriva -) 1 puff IH DAILY [facility] Last Admin: 03/25/18 09:04 Dose: 1 puff - Objective Vital Signs: Vital Signs Temperature 98.2 F 03/26/18 08:00 Pulse Rate 70 03/26/18 08:00 Respiratory Rate 16 03/26/18 08:00 Blood Pressure 127/75 03/26/18 08:00 O2 Sat by Pulse Oximetry (%) 99 03/26/18 08:00 Constitutional: Yes: No Distress, Calm Cardiovascular: Yes: Regular Rate and Rhythm Respiratory: Yes: Regular, Diminished, On Nasal O2 Gastrointestinal: Yes: Normal Bowel Sounds, Soft Edema: No Labs: CBC, BMP 03/25/18 05:40 03/26/18 05:43 INR, PTT INR 1.19 (0.82-1.09) H 03/23/18 08:15 - ....Imaging EKG: Report Reviewed (Tele: SR) Problem List - Problems (1) Acute bronchitis Code(s): J20.9 - ACUTE BRONCHITIS, UNSPECIFIED Qualifiers: Bronchitis organism: unspecified organism Qualified Code(s): J20.9 - Acute bronchitis, unspecified (2) Arrhythmia Code(s): I49.9 - CARDIAC ARRHYTHMIA, UNSPECIFIED Qualifiers: Atrial fibrillation type: paroxysmal (3) Asthma with COPD Code(s): J44.9 - CHRONIC OBSTRUCTIVE PULMONARY DISEASE, UNSPECIFIED (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 Acute Hypoxic and Hypercapneic Respiratory Failure improving 2. Acute COPD Exacerbation, RLL PNA 3. Churg Valencia Disease 4. Atrial tachyarrhythmia r/o PAF vs PAT 5. HTN P:1. F/u echo, holter to elucidate arrhythmia burden, check full TFTs 2. Empiric abx course, BD, steroid taper, titrate O2 to keep SpO2 >90%, BiPAP as needed to assist in work of breathing 3. DVT prophylaxis
[2018-03-26] MEDS: CEFTRIAXONE 2 GM in DEXTROSE 5%-WATER 100 ML IVPB SCH (10:22)
[2018-03-26] MEDS: methylPREDNISolone NA SUCC 40 MG/1 ML VIAL IVPUSH SCH (10:23)
[2018-03-26] MEDS: TIOTROPIUM BROMIDE 18 MCG CAPSULES IH SCH (10:23)
[2018-03-26] MEDS: PREGABALIN 50 MG CAPSULE PO SCH ×2 (10:23→21:24)
--- NOTE | 2018-03-26 12:10 | PN ---
Teaching Attending Note Name of Resident: Isaiah Hernandez ATTENDING PHYSICIAN STATEMENT I saw and evaluated the patient. I reviewed the resident's note and discussed the case with the resident. I agree with the resident's findings and plan as documented. SUBJECTIVE: Patient seen and examined in the ICU. NIPPV overnight. Some congested cough and airway feels dry. No CP. (+) LOZOYA this AM. OBJECTIVE: Intake & Output 03/23/18 03/24/18 03/25/18 03/26/18 23:59 23:59 23:59 23:59 Intake Total 1000 3800 3025 150 Output Total 250 3400 1200 Balance 585 314 6609 150 Weight 142 lb 126 lb 8 oz 129 lb 131 lb 8 oz Last Vital Signs Temp Pulse Resp BP Pulse Ox 98.1 F 88 16 98/80 95 03/26/18 10:00 03/26/18 10:00 03/26/18 10:00 03/26/18 10:00 03/26/18 11:46 Active Medications Acetaminophen (Tylenol -) 650 mg PO Q6H PRN PRN Reason: FEVER Albuterol Sulfate (Ventolin 0.042trength) -) 1 amp NEB RQID [facility] Last Admin: 03/26/18 08:10 Dose: 1 amp Albuterol Sulfate (Ventolin 0.083% Nebulizer Soln -) 1 amp NEB Q4H PRN PRN Reason: SHORT OF BREATH/WHEEZING Benzocaine/Menthol (Cepacol Lozenge -) 1 each MM PRN PRN PRN Reason: SORE THROAT Heparin Sodium (Porcine) (Heparin -) 5,000 unit SQ TID [facility] Last Admin: 03/26/18 06:23 Dose: 5,000 unit Lactated Ringer's (Lactated Ringers Solution) 1,000 ml in 1,000 mls @ 75 mls/ hr IV ASDIR [facility] Last Admin: 03/26/18 09:45 Dose: Not Given Ceftriaxone Sodium 2 gm/ (Dextrose) 100 mls @ 200 mls/hr IVPB DAILY [facility] PRN Reason: Protocol Last Admin: 03/26/18 10:22 Dose: 200 mls/hr Magnesium Hydroxide (Milk Of Magnesia -) 30 ml PO DAILY PRN PRN Reason: CONSTIPATION Methylprednisolone Sodium Succinate (Solu-Medrol -) 40 mg IVPUSH BID [facility] Last Admin: 03/26/18 10:23 Dose: 40 mg Polyethylene Glycol (Miralax (For Daily Use) -) 17 gm PO DAILY [facility] Pregabalin (Lyrica -) 100 mg PO BID [facility] Last Admin: 03/26/18 10:23 Dose: 100 mg Propranolol HCl (Inderal -) 10 mg PO BID [facility] Last Admin: 03/26/18 10:23 Dose: 10 mg Tiotropium [place] (Spiriva -) 1 puff IH DAILY [facility] Last Admin: 03/26/18 10:23 Dose: 1 puff Gen: Awake and alert, Mildly tachypneic at rest Heart: RRR Lung: bilateral coarse rhonchi (mostly at the bases), no wheezes Abd: soft, nontender Ext: no edema Laboratory Results - last 24 hr 03/26/18 05:43 Sodium 145 Potassium 3.6 Chloride 110 H Carbon Dioxide 32 Anion Gap 3 L BUN 29 H Creatinine 0.9 Creat Clearance w eGFR > 60 Random Glucose 102 Calcium 8.1 L Magnesium 2.0 Total Bilirubin 0.4 D AST 48 H ALT 40 Alkaline Phosphatase 102 Total Protein 6.1 L Albumin 2.7 L TSH 0.21 L ASSESSMENT AND PLAN: Acute Hypoxic and Hypercapneic Respiratory Failure improving Acute COPD Exacerbation Pneumonia Sepsis Churg Valencia Disease HTN - ABX - Wean Medrol - inhaled bronchodilators standing and PRN - NIPPV support as needed to assist in work of breathing - O2 to keep SpO2 >90% - DVT prophylaxis - 4W/4S monitoring Dr Oakley Critical care time spent in reviewing chart, evaluating patient and formulating plan - 36 minutes.
--- NOTE | 2018-03-26 13:33 | PN ---
Physical Exam: SUBJECTIVE: Patient seen and examined in ICU. Required bipap overnight, but stable. No fevers, chills, or chest pain. Patient is sitting in chair and comfortably eating breakfast this morning. OBJECTIVE: Vital Signs Period Temp Pulse Resp BP Sys/Sow Pulse Ox Last 24 Hr 97.2 F-98.7 F 66-88 11-24 98-132/66-83 94-99 GENERAL: The patient is awake, alert, and fully oriented, in no acute distress. HEAD: Normal with no signs of trauma. EYES: PERRL, extraocular movements intact, sclera anicteric, conjunctiva clear. LUNGS: Breath sounds equal, bilateral diffuse wheezing HEART: Regular rate and rhythm, S1, S2 without murmur, rub or gallop. ABDOMEN: Soft, nontender, nondistended, normoactive bowel sounds, no guarding, no rebound, no hepatosplenomegaly, no masses. EXTREMITIES: Warm, well-perfused, no edema. NEUROLOGICAL: Cranial nerves II through XII grossly intact. Normal speech, gait not observed. Laboratory Results - last 24 hr 03/26/18 05:43 Sodium 145 Potassium 3.6 Chloride 110 H Carbon Dioxide 32 Anion Gap 3 L BUN 29 H Creatinine 0.9 Creat Clearance w eGFR > 60 Random Glucose 102 Calcium 8.1 L Magnesium 2.0 Total Bilirubin 0.4 D AST 48 H ALT 40 Alkaline Phosphatase 102 Total Protein 6.1 L Albumin 2.7 L TSH 0.21 L Active Medications Generic Name Dose Route Start Last Admin Trade Name Freq PRN Reason Stop Dose Admin Acetaminophen 650 mg 03/23/18 22:05 Tylenol - PO Q6H PRN FEVER Albuterol Sulfate 1 amp 03/24/18 16:00 03/26/18 08:10 Ventolin 0.042trength) - NEB 1 amp RQID [facility] Administration Albuterol Sulfate 1 amp 03/25/18 10:35 Ventolin 0.083% Nebulizer Soln - NEB Q4H PRN SHORT OF BREATH/WHEEZING Benzocaine/Menthol 1 each 03/23/18 20:32 Cepacol Lozenge - MM PRN PRN SORE THROAT Heparin Sodium (Porcine) 5,000 unit 03/23/18 14:00 03/26/18 06:23 Heparin - SQ 5,000 unit TID [facility] Administration Lactated Ringer's 1,000 ml in 1,000 mls @ 75 mls/hr 03/25/18 09:45 03/26/18 09:45 Lactated Ringers Solution IV Not Given ASDIR [facility] Ceftriaxone Sodium 2 gm/ 100 mls @ 200 mls/hr 03/25/18 14:00 03/26/18 10:22 Dextrose IVPB 200 mls/hr DAILY [facility] Administration Protocol Magnesium Hydroxide 30 ml 03/26/18 07:30 Milk Of Magnesia - PO DAILY PRN CONSTIPATION Methylprednisolone Sodium Succinate 40 mg 03/25/18 22:00 03/26/18 10:23 Solu-Medrol - IVPUSH 40 mg BID [facility] Administration Polyethylene Glycol 17 gm 03/26/18 10:00 03/26/18 12:49 Miralax (For Daily Use) - PO 17 gm DAILY [facility] Administration Pregabalin 100 mg 03/23/18 22:00 03/26/18 10:23 Lyrica - PO 100 mg BID [facility] Administration Propranolol HCl 10 mg 03/23/18 22:00 03/26/18 10:23 Inderal - PO 10 mg BID [facility] Administration Tiotropium [place] 1 puff 03/24/18 18:00 03/26/18 10:23 Spiriva - IH 1 puff DAILY [facility] Administration ASSESSMENT/PLAN: Patient is a 77F with history of COPD, HTN, 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 Respiratory #Respiratory distress with respiratory acidosis - Bipap weaned - Etiology COPD exacerbation vs pneumonia, initially covered with zosyn due to patient's immunocompromised status and failed azithromycin tx - Now on rocephin - CXR shows diffuse chronic lung disease - CT shows COPD with probable pneumonia - Methylprednisone 40 q12h - Spiriva daily, albuterol PRN ID #Severe sepsis 2/2 possible pneumonia - Tachypneic, white count 16, tachycardic, + source with lactate. BPs stable. - Lactate 2.2, cleared to 1.8 with 1L - Ceftriaxone now FEN/GI -NPO until bipap weaned -Tolerating PO -Will replete as necessary PPx - heparin and protonix Dispo -transfer to m/s Visit type - Emergency Visit Emergency Visit: Yes ED Registration Date: 03/23/18 Care time: The patient presented to the Emergency Department on the above date and was hospitalized for further evaluation of their emergent condition. - New Patient This patient is new to me today: No - Critical Care Critical Care patient: Yes Total Critical Care Time (in minutes): 35 Critical Care Statement: The care of this patient involved high complexity decision making to prevent further life threatening deterioration of the patient 's condition and/or to evaluate & treat vital organ system(s) failure or risk of failure.
[2018-03-26] MEDS ORDERED: ALBUTEROL SO4 0.083% IH SOL 2.5 MG/3 ML VIAL.NEB. NEB PRN (18:35)
[2018-03-26] MEDS ORDERED: ACETAMINOPHEN 325 MG TABLET (FP) PO PRN (18:35)
[2018-03-26] MEDS ORDERED: BENZOCAINE/MENTH/CETYLPYRD CL 1 EACH LOZENGE MM PRN (18:35)
[2018-03-26] MEDS ORDERED: PT OWN MED DRAWER 7, Y5N ONE (21:15)
[2018-03-26] MEDS ORDERED: methylPREDNISolone NA SUCC 40 MG/1 ML VIAL IVPUSH SCH (22:00)
[2018-03-27 00:10] LABS: COMPLEMENT TOTAL(CH50) 63 U/mL (42-60)
[2018-03-27 06:45] LABS: BASO % 0.1 % (0-2.0); HEMATOCRIT 38.2 % (32.4-45.2); HEMOGLOBIN 12.9 GM/dL (10.7-15.3); LYMPH % 11.6 % (8-40); MCHC 33.8 g/dl (32.0-36.0); MEAN CELL VOLUME 91.6 fl (80-96); MEAN PLT VOLUME 8.3 fl (7.5-11.1); MONO % 9.9 % (3.8-10.2); NEUT % 78.4 % (42.8-82.8); PLATELET COUNT 179 K/MM3 (134-434); RBC 4.16 M/mm3 (3.60-5.2); WHITE BLOOD COUNT 6.2 K/mm3 (4.0-10.0)
[2018-03-27] MEDS: HEPARIN NA (PORCINE) 5,000 UNITS/ML 1ML VIAL SQ SCH ×3 (06:49→21:27)
[2018-03-27 06:56] LABS: ALBUMIN 2.7 g/dl (3.4-5.0); ALK PHOS 88 U/L (45-117); ANION GAP 4 (8-16); BILIRUBIN,TOTAL 0.4 mg/dL (0.2-1.0); BLOOD UREA NITROGEN 29 mg/dL (7-18); CALCIUM 8.3 mg/dL (8.5-10.1); CHLORIDE 108 mmol/L (98-107); CO2 34 mmol/L (21-32); CREATININE 0.8 mg/dL (0.55-1.02); GLUCOSE,RANDOM 108 mg/dL (74-106); MAGNESIUM 2.2 mg/dL (1.8-2.4); PHOSPHOROUS 3.5 mg/dL (2.5-4.9); POTASSIUM 4.1 mmol/L (3.5-5.1); SGOT/AST 33 U/L (15-37); SGPT/ALT 35 U/L (12-78); SODIUM 146 mmol/L (136-145); TOT PROT 6.1 g/dl (6.4-8.2)
[2018-03-27] MEDS: ALBUTEROL SO4 0.042% IH SOL 1.25 MG/3 ML VIAL.NEB NEB SCH ×4 (07:20→21:16)
--- NOTE | 2018-03-27 07:57 | PN ---
Progress Note, Physician Chief Complaint: CT chest [id number] COPD. RLL PNA Bronchiectasis. Mediastinal mild lymphadeopathy. Mild splenomegaly. Patient is in ICU. Feels better. Less wheezing, rhonchi. Cardiology consult appreciated PAF vs PAT History of Present Illness: Asthma/COPD Churg-Valencia vasculitis. HTN Ostheoporosis. s/p Parathyroid adenoma. - Current Medication List Current Medications: Active Medications Acetaminophen (Tylenol -) 650 mg PO Q6H PRN PRN Reason: FEVER Albuterol Sulfate (Ventolin 0.083% Nebulizer Soln -) 1 amp NEB Q4H PRN PRN Reason: SHORT OF BREATH/WHEEZING Albuterol Sulfate (Ventolin 0.042trength) -) 1 amp NEB RQID [facility] Last Admin: 03/26/18 21:30 Dose: 1 amp Benzocaine/Menthol (Cepacol Lozenge -) 1 each MM Q2H PRN PRN Reason: SORE THROAT Heparin Sodium (Porcine) (Heparin -) 5,000 unit SQ TID [facility] Last Admin: 03/27/18 06:49 Dose: 5,000 unit Ceftriaxone Sodium 2 gm/ (Dextrose) 100 mls @ 200 mls/hr IVPB DAILY [facility] PRN Reason: Protocol Magnesium Hydroxide (Milk Of Magnesia -) 30 ml PO DAILY PRN PRN Reason: CONSTIPATION Methylprednisolone Sodium Succinate (Solu-Medrol -) 40 mg IVPUSH BID [facility] Last Admin: 03/26/18 21:24 Dose: 40 mg Polyethylene Glycol (Miralax (For Daily Use) -) 17 gm PO DAILY [facility] Pregabalin (Lyrica -) 100 mg PO BID [facility] Last Admin: 03/26/18 21:24 Dose: 100 mg Propranolol HCl (Inderal -) 10 mg PO BID [facility] Last Admin: 03/26/18 21:24 Dose: 10 mg Tiotropium [place] (Spiriva -) 1 puff IH DAILY [facility] - Objective Vital Signs: Vital Signs Temperature 98 F 03/27/18 06:00 Pulse Rate 73 03/27/18 06:00 Respiratory Rate 17 03/27/18 06:00 Blood Pressure 135/74 03/27/18 06:00 O2 Sat by Pulse Oximetry (%) 95 03/26/18 20:18 Constitutional: Yes: Anxious, Mild Distress Eyes: Yes: Conjunctiva Clear, EOM Intact HENT: Yes: Atraumatic, Normocephalic Neck: Yes: Supple, Trachea Midline Cardiovascular: Yes: Regular Rate and Rhythm, S1, S2. No: Tachycardia, Pulse Irregular Respiratory: Yes: Cough, Rhonchi (B/L), SOB. No: Rales, Stridor, Tachypnea, Wheezes Gastrointestinal: Yes: WNL, Normal Bowel Sounds, Soft. No: Abdomen, Obese ...Rectal Exam: Yes: Deferred Genitourinary: No: Anuria Breast(s): Yes: WNL Musculoskeletal: Yes: WNL Extremities: No: Amputation, Calf Tenderness, Cold Edema: No Integumentary: No: Pressure Ulcer Neurological: Yes: Alert, Oriented. No: Aphasia, Lethargy ...Motor Strength: WNL Psychiatric: Yes: WNL Labs: CBC, BMP 03/27/18 05:35 03/27/18 05:35 INR, PTT INR 1.19 (0.82-1.09) H 03/23/18 08:15 - ....Imaging Cat Scan: Report Reviewed Problem List - Problems (1) Respiratory distress Assessment/Plan: Improving with current treatment Code(s): R06.03 - ACUTE RESPIRATORY DISTRESS (2) Asthma with COPD Assessment/Plan: Continue Nebs Q 4 HRS IV Solumedrol 40mg IV now BID Code(s): J44.9 - CHRONIC OBSTRUCTIVE PULMONARY DISEASE, UNSPECIFIED (3) Acute bronchitis Assessment/Plan: . 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 Code(s): J98.4 - OTHER DISORDERS OF LUNG; M30.1 - POLYARTERITIS WITH LUNG INVOLVEMENT [CHURG-VALECNIA] (5) Arrhythmia Assessment/Plan: Cardiology consult Continue monitoring Holter Code(s): I49.9 - CARDIAC ARRHYTHMIA, UNSPECIFIED Qualifiers: Atrial fibrillation type: paroxysmal (6) RLL pneumonia Assessment/Plan: Continue abx. Code(s): J18.1 - LOBAR PNEUMONIA, UNSPECIFIED ORGANISM Qualifiers: Pneumonia type: due to unspecified organism Qualified Code(s): J18.1 - Lobar pneumonia, unspecified organism
[2018-03-27] MEDS ORDERED: methylPREDNISolone NA SUCC 40 MG/1 ML VIAL IVPUSH SCH (10:00)
[2018-03-27] MEDS ORDERED: POLYETHYLENE GLYCOL 3350 119 GM BTL PO SCH (10:00)
[2018-03-27] MEDS ORDERED: TIOTROPIUM BROMIDE 18 MCG CAPSULES IH SCH (10:00)
[2018-03-27] MEDS ORDERED: CEFTRIAXONE 2 GM in DEXTROSE 5%-WATER 100 ML IVPB SCH (10:00)
[2018-03-27] MEDS ORDERED: PT OWN MED DRAWER 7, Y5N ONE (10:14)
[2018-03-27] MEDS ORDERED: DEXTROSE 5%-WATER 100 ML IVPB ONE (10:15)
[2018-03-27] MEDS: PREGABALIN 50 MG CAPSULE PO SCH ×2 (10:22→21:27)
--- NOTE | 2018-03-27 10:28 | PN ---
Progress Note, Physician History of Present Illness: Dyspnea improving, holter performed, results pending. - Current Medication List Current Medications: Active Medications Acetaminophen (Tylenol -) 650 mg PO Q6H PRN PRN Reason: FEVER Albuterol Sulfate (Ventolin 0.083% Nebulizer Soln -) 1 amp NEB Q4H PRN PRN Reason: SHORT OF BREATH/WHEEZING Albuterol Sulfate (Ventolin 0.042trength) -) 1 amp NEB RQID [facility] Last Admin: 03/27/18 07:20 Dose: 1 amp Benzocaine/Menthol (Cepacol Lozenge -) 1 each MM Q2H PRN PRN Reason: SORE THROAT Heparin Sodium (Porcine) (Heparin -) 5,000 unit SQ TID [facility] Last Admin: 03/27/18 06:49 Dose: 5,000 unit Ceftriaxone Sodium 2 gm/ (Dextrose) 100 mls @ 200 mls/hr IVPB DAILY [facility] PRN Reason: Protocol Last Admin: 03/27/18 10:20 Dose: 200 mls/hr Magnesium Hydroxide (Milk Of Magnesia -) 30 ml PO DAILY PRN PRN Reason: CONSTIPATION Methylprednisolone Sodium Succinate (Solu-Medrol -) 40 mg IVPUSH DAILY [facility] Last Admin: 03/27/18 10:23 Dose: 40 mg Polyethylene Glycol (Miralax (For Daily Use) -) 17 gm PO DAILY [facility] Last Admin: 03/27/18 10:20 Dose: 17 gm Pregabalin (Lyrica -) 100 mg PO BID [facility] Last Admin: 03/27/18 10:22 Dose: 100 mg Propranolol HCl (Inderal -) 10 mg PO BID [facility] Last Admin: 03/27/18 10:21 Dose: 10 mg Tiotropium [place] (Spiriva -) 1 puff IH DAILY [facility] Last Admin: 03/27/18 10:23 Dose: 1 puff - Objective Vital Signs: Vital Signs Temperature 98 F 03/27/18 06:00 Pulse Rate 77 03/27/18 08:27 Respiratory Rate 18 03/27/18 08:00 Blood Pressure 134/83 03/27/18 08:00 O2 Sat by Pulse Oximetry (%) 97 03/27/18 09:57 Constitutional: Yes: No Distress, Calm, Thin Neck: Yes: Supple Cardiovascular: Yes: Regular Rate and Rhythm Respiratory: Yes: Regular, Diminished, On Nasal O2 Gastrointestinal: Yes: Normal Bowel Sounds, Soft Edema: No Labs: CBC, BMP 03/27/18 05:35 03/27/18 05:35 INR, PTT INR 1.19 (0.82-1.09) H 03/23/18 08:15 Problem List - Problems (1) Acute bronchitis Code(s): J20.9 - ACUTE BRONCHITIS, UNSPECIFIED Qualifiers: Bronchitis organism: unspecified organism Qualified Code(s): J20.9 - Acute bronchitis, unspecified (2) Arrhythmia Code(s): I49.9 - CARDIAC ARRHYTHMIA, UNSPECIFIED Qualifiers: Atrial fibrillation type: paroxysmal (3) Asthma with COPD Code(s): J44.9 - CHRONIC OBSTRUCTIVE PULMONARY DISEASE, UNSPECIFIED (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 Acute Hypoxic and Hypercapneic Respiratory Failure improving 2. Acute COPD Exacerbation, RLL PNA 3. Churg Valencia Disease 4. Atrial tachyarrhythmia r/o PAF vs PAT 5. HTN P:1. F/u holter to elucidate arrhythmia burden, check full TFTs 2. Empiric abx course, BD, steroid taper, titrate O2 to keep SpO2 >90%, BiPAP as needed to assist in work of breathing 3. Started Inderal 10 bid 4. DVT prophylaxis
--- NOTE | 2018-03-27 12:22 | PN ---
Teaching Attending Note Name of Resident: Isaiah Hernandez ATTENDING PHYSICIAN STATEMENT I saw and evaluated the patient. I reviewed the resident's note and discussed the case with the resident. I agree with the resident's findings and plan as documented. SUBJECTIVE: Patient seen and examined in the ICU. Did not use NIPPV overnight. Some congested cough. No CP. (+) Still with some LOZOYA. OBJECTIVE: Intake & Output 03/24/18 03/25/18 03/26/18 03/27/18 23:59 23:59 23:59 23:59 Intake Total 3800 3025 650 100 Output Total 3400 1200 Balance 400 1825 650 100 Weight 126 lb 8 oz 129 lb 131 lb 8 oz 132 lb 4.438 oz Last Vital Signs Temp Pulse Resp BP Pulse Ox 98.3 F 78 19 135/88 97 03/27/18 10:00 03/27/18 12:00 03/27/18 12:00 03/27/18 12:00 03/27/18 09:57 Active Medications Acetaminophen (Tylenol -) 650 mg PO Q6H PRN PRN Reason: FEVER Albuterol Sulfate (Ventolin 0.083% Nebulizer Soln -) 1 amp NEB Q4H PRN PRN Reason: SHORT OF BREATH/WHEEZING Albuterol Sulfate (Ventolin 0.042trength) -) 1 amp NEB RQID [facility] Last Admin: 03/27/18 11:20 Dose: 1 amp Benzocaine/Menthol (Cepacol Lozenge -) 1 each MM Q2H PRN PRN Reason: SORE THROAT Heparin Sodium (Porcine) (Heparin -) 5,000 unit SQ TID [facility] Last Admin: 03/27/18 06:49 Dose: 5,000 unit Ceftriaxone Sodium 2 gm/ (Dextrose) 100 mls @ 200 mls/hr IVPB DAILY [facility] PRN Reason: Protocol Last Admin: 03/27/18 10:20 Dose: 200 mls/hr Magnesium Hydroxide (Milk Of Magnesia -) 30 ml PO DAILY PRN PRN Reason: CONSTIPATION Methylprednisolone Sodium Succinate (Solu-Medrol -) 40 mg IVPUSH DAILY [facility] Last Admin: 03/27/18 10:23 Dose: 40 mg Polyethylene Glycol (Miralax (For Daily Use) -) 17 gm PO DAILY [facility] Last Admin: 03/27/18 10:20 Dose: 17 gm Pregabalin (Lyrica -) 100 mg PO BID [facility] Last Admin: 03/27/18 10:22 Dose: 100 mg Propranolol HCl (Inderal -) 10 mg PO BID [facility] Last Admin: 03/27/18 10:21 Dose: 10 mg Tiotropium [place] (Spiriva -) 1 puff IH DAILY [facility] Last Admin: 03/27/18 10:23 Dose: 1 puff Gen: Awake and alert, NAD at rest Heart: RRR Lung: bilateral coarse rhonchi (mostly at the bases), no wheezes Abd: soft, nontender Ext: no edema Laboratory Results - last 24 hr 03/25/18 03/27/18 03/27/18 05:40 05:35 05:35 WBC 6.2 RBC 4.16 Hgb 12.9 Hct 38.2 MCV 91.6 MCH 31.0 MCHC 33.8 RDW 15.0 Plt Count 179 MPV 8.3 Neutrophils % 78.4 Lymphocytes % 11.6 Monocytes % 9.9 Eosinophils % 0.0 D Basophils % 0.1 Sodium 146 H Potassium 4.1 Chloride 108 H Carbon Dioxide 34 H Anion Gap 4 L BUN 29 H Creatinine 0.8 Creat Clearance w eGFR > 60 Random Glucose 108 H Calcium 8.3 L Phosphorus 3.5 Magnesium 2.2 Total Bilirubin 0.4 AST 33 ALT 35 Alkaline Phosphatase 88 Total Protein 6.1 L Albumin 2.7 L SERA Screen Negative Tot Complement (CH50) 63 H ASSESSMENT AND PLAN: Acute Hypoxic and Hypercapneic Respiratory Failure improving Acute COPD Exacerbation Pneumonia Sepsis Churg Valencia Disease HTN - ABX - Medrol - inhaled bronchodilators standing and PRN - NIPPV support as needed to assist in work of breathing - O2 to keep SpO2 >90% - DVT prophylaxis - 4W/4S monitoring Dr Oakley Critical care time spent in reviewing chart, evaluating patient and formulating plan - 36 minutes.
--- NOTE | 2018-03-27 12:57 | HOL ---
Hook-up date: 2018-03-26 09:06:00 Duration: 24:00:00 Test Indications: ATRIAL TACHYARRHYTHMIA PAT VS PA Medications: [id number] QRS complexes 113 Ventricular ectopics which represent <1 % of total QRS comp. 1883 Supraventricular ectopics which represent 1 % of total QRS comp. * Paced QRS complexs which represent % of total QRS comp. * % of Time Classified as Noise VENTRICULAR ECTOPY 107 Isolated 0 Bigeminal Cycles 3 Couplets 0 Runs 0 Beats in Runs * Beats LONGEST at * BPM at :: -- * Beats FASTEST at * BPM at :: -- SUPRAVENTRICULAR ECTOPY 890 Isolated 25 Couplets 127 Runs 943 Beats in Runs 66 Beats LONGEST at 125 BPM at 16:16:02 2018-03-26 5 Beats FASTEST at 160 BPM at 18:02:53 2018-03-26 HEART RATES 59 MIN at 22:32:38 2018-03-26 78 AVG 121 MAX at 17:03:12 2018-03-26 LONGEST RR 1.288 secs at 03:20:52 2018-03-27 The underlying rhythm is normal sinus with an average heart rate of 78bpm. Rare unifocal VPCs, occasional couplets. Frequent atrial premature contractions; several short runs of PSVT most likely paroxysmal atrial tachycardia (PAT). The longest run 13 beats at a rate of 144bpm. No diary entries. Confirmed by ROSALINA HOLLAND MD ([id number]) on 03/27/2018 12:57:31 PM Referred By: ANDREA JACKSON DR Overread By: ROSALINA HOLLAND MD
--- NOTE | 2018-03-27 13:15 | PN ---
Physical Exam: SUBJECTIVE: Patient seen and examined in ICU. No acute events overnight. Did not require bipap overnight. Denies chest pain, fever, chills, nausea, vomiting. OBJECTIVE: Vital Signs Period Temp Pulse Resp BP Sys/Sow Pulse Ox Last 24 Hr 97.6 F-98.3 F 69-91 14-21 117-155/69-96 95-100 GENERAL: The patient is awake, alert, and fully oriented, in no acute distress. HEAD: Normal with no signs of trauma. EYES: PERRL, extraocular movements intact, sclera anicteric, conjunctiva clear. No ptosis. LUNGS: Breath sounds equal, wheezes bilaterally, no accessory muscle HEART: Regular rate and rhythm, S1, S2 without murmur, rub or gallop. ABDOMEN: Soft, nontender, nondistended, no guarding, no rebound EXTREMITIES: 2+ pulses, warm, well-perfused, no edema. NEUROLOGICAL: Cranial nerves II through XII grossly intact. Normal speech, gait not observed. SKIN: Warm, dry, normal turgor, no rashes or lesions noted Laboratory Results - last 24 hr 03/25/18 03/27/18 03/27/18 05:40 05:35 05:35 WBC 6.2 RBC 4.16 Hgb 12.9 Hct 38.2 MCV 91.6 MCH 31.0 MCHC 33.8 RDW 15.0 Plt Count 179 MPV 8.3 Neutrophils % 78.4 Lymphocytes % 11.6 Monocytes % 9.9 Eosinophils % 0.0 D Basophils % 0.1 Sodium 146 H Potassium 4.1 Chloride 108 H Carbon Dioxide 34 H Anion Gap 4 L BUN 29 H Creatinine 0.8 Creat Clearance w eGFR > 60 Random Glucose 108 H Calcium 8.3 L Phosphorus 3.5 Magnesium 2.2 Total Bilirubin 0.4 AST 33 ALT 35 Alkaline Phosphatase 88 Total Protein 6.1 L Albumin 2.7 L SERA Screen Negative Tot Complement (CH50) 63 H Active Medications Generic Name Dose Route Start Last Admin Trade Name Freq PRN Reason Stop Dose Admin Acetaminophen 650 mg 03/26/18 18:35 Tylenol - PO Q6H PRN FEVER Albuterol Sulfate 1 amp 03/26/18 18:35 Ventolin 0.083% Nebulizer Soln - NEB Q4H PRN SHORT OF BREATH/WHEEZING Albuterol Sulfate 1 amp 03/26/18 20:00 05/04/18 11:20 Ventolin 0.042trength) - NEB 1 amp RQID [facility] Administration Benzocaine/Menthol 1 each 03/26/18 18:35 Cepacol Lozenge - MM Q2H PRN SORE THROAT Heparin Sodium (Porcine) 5,000 unit 03/26/18 22:00 03/27/18 06:49 Heparin - SQ 5,000 unit TID [facility] Administration Ceftriaxone Sodium 2 gm/ 100 mls @ 200 mls/hr 03/27/18 10:00 03/27/18 10:20 Dextrose IVPB 200 mls/hr DAILY [facility] Administration Protocol Magnesium Hydroxide 30 ml 03/26/18 18:35 Milk Of Magnesia - PO DAILY PRN CONSTIPATION Methylprednisolone Sodium Succinate 40 mg 03/27/18 10:00 03/27/18 10:23 Solu-Medrol - IVPUSH 40 mg DAILY [facility] Administration Polyethylene Glycol 17 gm 03/27/18 10:00 03/27/18 10:20 Miralax (For Daily Use) - PO 17 gm DAILY [facility] Administration Pregabalin 100 mg 03/26/18 22:00 03/27/18 10:22 Lyrica - PO 100 mg BID [facility] Administration Propranolol HCl 10 mg 03/26/18 22:00 03/27/18 10:21 Inderal - PO 10 mg BID [facility] Administration Tiotropium [place] 1 puff 03/27/18 10:00 03/27/18 10:23 Spiriva - IH 1 puff DAILY [facility] Administration ASSESSMENT/PLAN: Patient is a 77F with history of COPD, HTN, 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 Respiratory #Respiratory distress with respiratory acidosis - Bipap weaned - Etiology COPD exacerbation vs pneumonia, initially covered with zosyn due to patient's immunocompromised status and failed azithromycin tx - Now on rocephin - CXR shows diffuse chronic lung disease - CT shows COPD with probable pneumonia - Methylprednisone 40 q12h - Spiriva daily, albuterol PRN ID #Severe sepsis 2/2 possible pneumonia - Tachypneic, white count 16, tachycardic, + source with lactate. BPs stable. - Lactate 2.2, cleared to 1.8 with 1L - Ceftriaxone now FEN/GI -Tolerating PO -Will replete as necessary PPx - heparin and protonix Dispo -transfer to tele Visit type - Emergency Visit Emergency Visit: Yes ED Registration Date: 03/23/18 Care time: The patient presented to the Emergency Department on the above date and was hospitalized for further evaluation of their emergent condition. - New Patient This patient is new to me today: No - Critical Care Critical Care patient: Yes Total Critical Care Time (in minutes): 35 Critical Care Statement: The care of this patient involved high complexity decision making to prevent further life threatening deterioration of the patient 's condition and/or to evaluate & treat vital organ system(s) failure or risk of failure.
[2018-03-27] MEDS ORDERED: ALBUTEROL SO4 0.083% IH SOL 2.5 MG/3 ML VIAL.NEB. NEB PRN (19:19)
[2018-03-27] MEDS ORDERED: MAGNESIUM HYDROX 2400MG/30ML ORAL SUSPENSION 30 ML CUP PO PRN (19:19)
[2018-03-27] MEDS ORDERED: BENZOCAINE/MENTH/CETYLPYRD CL 1 EACH LOZENGE MM PRN (19:19)
[2018-03-27] MEDS ORDERED: ACETAMINOPHEN 325 MG TABLET (FP) PO PRN (19:19)
[2018-03-28] MEDS: HEPARIN NA (PORCINE) 5,000 UNITS/ML 1ML VIAL SQ SCH ×3 (05:18→21:42)
[2018-03-28 06:50] LABS: BASO % 0.1 % (0-2.0); EOS % 1.3 % (0-4.5); HEMATOCRIT 39.5 % (32.4-45.2); HEMOGLOBIN 13.6 GM/dL (10.7-15.3); LYMPH % 12.6 % (8-40); MCH 31.3 pg (25.7-33.7); MCHC 34.4 g/dl (32.0-36.0); MEAN PLT VOLUME 7.9 fl (7.5-11.1); MONO % 17.9 % (3.8-10.2); NEUT % 68.1 % (42.8-82.8); PLATELET COUNT 181 K/MM3 (134-434); RBC 4.34 M/mm3 (3.60-5.2); RDW 14.6 % (11.6-15.6); WHITE BLOOD COUNT 8.3 K/mm3 (4.0-10.0)
[2018-03-28 07:10] LABS: ALBUMIN 2.9 g/dl (3.4-5.0); ANION GAP 6 (8-16); BLOOD UREA NITROGEN 25 mg/dL (7-18); CALCIUM 8.9 mg/dL (8.5-10.1); CHLORIDE 102 mmol/L (98-107); CO2 37 mmol/L (21-32); GLUCOSE,RANDOM 83 mg/dL (74-106); POTASSIUM 3.7 mmol/L (3.5-5.1); SGOT/AST 26 U/L (15-37); SGPT/ALT 29 U/L (12-78); SODIUM 145 mmol/L (136-145)
[2018-03-28 07:13] LABS: ALK PHOS 84 U/L (45-117); BILIRUBIN,TOTAL 0.7 mg/dL (0.2-1.0); CREATININE 0.8 mg/dL (0.55-1.02); TOT PROT 6.5 g/dl (6.4-8.2)
--- NOTE | 2018-03-28 09:11 | PN ---
Physical Exam: SUBJECTIVE: Patient seen and examined at the bedside. Sitting up, eating her breakfast, states her breathing has improved. No chest pain, not short of breath OBJECTIVE: Mild rash noted on upper back and upper chest wall Lungs diminished bilaterally, no wheezing Incentive spirometer Vital Signs Period Temp Pulse Resp BP Sys/Sow Pulse Ox Last 24 Hr 97.9 F-98.6 F 69-96 15-21 121-150/64-95 96-99 GENERAL: The patient is awake, alert, and fully oriented, in no acute distress. HEAD: Normal with no signs of trauma. EYES: PERRL, extraocular movements intact, sclera anicteric, conjunctiva clear. No ptosis. ENT: Ears normal, nares patent, oropharynx clear without exudates, moist mucous membranes. NECK: Trachea midline, full range of motion, supple. LUNGS: Breath sounds equal, diminished, no wheezing, on supplemental oxygen @ 2 liters, not home oxygen dependent HEART: Regular rate and rhythm, S1, S2 without murmur, rub or gallop. ABDOMEN: Soft, nontender, nondistended, BM today EXTREMITIES: no edema. NEUROLOGICAL: Normal speech, gait not observed. PSYCH: Normal mood, normal affect. SKIN: mild rash, pink raised, mild itchiness on upper back and upper chest Laboratory Results - last 24 hr 03/28/18 03/28/18 06:30 06:30 WBC 8.3 D RBC 4.34 Hgb 13.6 Hct 39.5 MCV 91.0 MCH 31.3 MCHC 34.4 RDW 14.6 Plt Count 181 MPV 7.9 Neutrophils % 68.1 Lymphocytes % 12.6 Monocytes % 17.9 H D Eosinophils % 1.3 D Basophils % 0.1 Sodium 145 Potassium 3.7 Chloride 102 Carbon Dioxide 37 H Anion Gap 6 L BUN 25 H Creatinine 0.8 Creat Clearance w eGFR > 60 Random Glucose 83 Calcium 8.9 Total Bilirubin 0.7 D AST 26 ALT 29 Alkaline Phosphatase 84 Total Protein 6.5 Albumin 2.9 L Active Medications Generic Name Dose Route Start Last Admin Trade Name Freq PRN Reason Stop Dose Admin Acetaminophen 650 mg 03/27/18 19:19 Tylenol - PO Q6H PRN FEVER Albuterol Sulfate 1 amp 03/27/18 19:19 Ventolin 0.083% Nebulizer Soln - NEB Q4H PRN SHORT OF BREATH/WHEEZING Albuterol Sulfate 1 amp 03/27/18 20:00 03/27/18 21:16 Ventolin 0.042trength) - NEB 1 amp RQID [facility] Administration Benzocaine/Menthol 1 each 03/27/18 19:19 Cepacol Lozenge - MM Q2H PRN SORE THROAT Heparin Sodium (Porcine) 5,000 unit 03/27/18 22:00 03/28/18 05:18 Heparin - SQ 5,000 unit TID [facility] Administration Ceftriaxone Sodium 2 gm/ 100 mls @ 200 mls/hr 03/28/18 10:00 Dextrose IVPB DAILY [facility] Protocol Magnesium Hydroxide 30 ml 03/27/18 19:19 Milk Of Magnesia - PO DAILY PRN CONSTIPATION Methylprednisolone Sodium Succinate 40 mg 03/28/18 10:00 Solu-Medrol - IVPUSH DAILY [facility] Polyethylene Glycol 17 gm 03/28/18 10:00 Miralax (For Daily Use) - PO DAILY [facility] Pregabalin 100 mg 03/27/18 22:00 03/27/18 21:27 Lyrica - PO 100 mg BID [facility] Administration Propranolol HCl 10 mg 03/27/18 22:00 03/27/18 21:27 Inderal - PO 10 mg BID [facility] Administration Tiotropium [place] 1 puff 03/28/18 10:00 Spiriva - IH DAILY [facility] ASSESSMENT/PLAN: The patient is a 77 year old female with a significant past medical history of COPD, hypertension 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 She presents to the ED on 03/23/2018 via EMS in respiratory distress. As per patient , prior to admission, she began to experience shortness of breath and cough that worsened. She was on PO antibiotics but her symptoms did not resolve. 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 Fluids: tolerating PO Electrolytes: monitor daily Nutrition: low sodium diet Prophy: DVT: SCDs GI: protonix Disposition: full code Visit type - Emergency Visit Emergency Visit: Yes ED Registration Date: 03/23/18 Care time: The patient presented to the Emergency Department on the above date and was hospitalized for further evaluation of their emergent condition. - New Patient This patient is new to me today: Yes Date on this admission: 03/28/18 - Critical Care Critical Care patient: Yes Total Critical Care Time (in minutes): 30 Critical Care Statement: The care of this patient involved high complexity decision making to prevent further life threatening deterioration of the patient 's condition and/or to evaluate & treat vital organ system(s) failure or risk of failure.
[2018-03-28] MEDS: ALBUTEROL SO4 0.042% IH SOL 1.25 MG/3 ML VIAL.NEB NEB SCH ×4 (09:21→19:30)
[2018-03-28 09:47] LABS: MAGNESIUM 1.9 mg/dL (1.8-2.4)
[2018-03-28] MEDS ORDERED: PT OWN MED DRAWER 7, Y5N ONE (10:53)
[2018-03-28] MEDS ORDERED: DEXTROSE 5%-WATER 100 ML IVPB ONE (10:54)
[2018-03-28] MEDS: CEFTRIAXONE 2 GM in DEXTROSE 5%-WATER 100 ML IVPB SCH (10:57)
[2018-03-28] MEDS: PREGABALIN 50 MG CAPSULE PO SCH ×2 (10:58→21:42)
[2018-03-28] MEDS: POLYETHYLENE GLYCOL 3350 119 GM BTL PO SCH (10:58)
[2018-03-28] MEDS: PANTOPRAZOLE 40 MG TABLET (FP) PO SCH (10:59)
[2018-03-28] MEDS: TIOTROPIUM BROMIDE 18 MCG CAPSULES IH SCH (10:59)
[2018-03-28] MEDS: methylPREDNISolone NA SUCC 40 MG/1 ML VIAL IVPUSH SCH (10:59)
--- NOTE | 2018-03-28 12:47 | PN ---
Progress Note, Physician Chief Complaint: Events noted Feels better with less cough (production) History of Present Illness: Patient was seen and examined. Awake and alert. Chart was reviewed Denies chest pain or palpitations. Less SOB and cough - Current Medication List Current Medications: Active Medications Acetaminophen (Tylenol -) 650 mg PO Q6H PRN PRN Reason: FEVER Albuterol Sulfate (Ventolin 0.083% Nebulizer Soln -) 1 amp NEB Q4H PRN PRN Reason: SHORT OF BREATH/WHEEZING Albuterol Sulfate (Ventolin 0.042trength) -) 1 amp NEB RQID [facility] Last Admin: 03/28/18 09:21 Dose: 1 amp Benzocaine/Menthol (Cepacol Lozenge -) 1 each MM Q2H PRN PRN Reason: SORE THROAT Heparin Sodium (Porcine) (Heparin -) 5,000 unit SQ TID [facility] Last Admin: 03/28/18 05:18 Dose: 5,000 unit Ceftriaxone Sodium 2 gm/ (Dextrose) 100 mls @ 200 mls/hr IVPB DAILY [facility] PRN Reason: Protocol Last Admin: 03/28/18 10:57 Dose: 200 mls/hr Magnesium Hydroxide (Milk Of Magnesia -) 30 ml PO DAILY PRN PRN Reason: CONSTIPATION Methylprednisolone Sodium Succinate (Solu-Medrol -) 40 mg IVPUSH DAILY [facility] Last Admin: 03/28/18 10:59 Dose: 40 mg Pantoprazole Sodium (Protonix -) 40 mg PO DAILY [facility] Last Admin: 03/28/18 10:59 Dose: 40 mg Polyethylene Glycol (Miralax (For Daily Use) -) 17 gm PO DAILY [facility] Last Admin: 03/28/18 10:58 Dose: Not Given Pregabalin (Lyrica -) 100 mg PO BID [facility] Last Admin: 03/28/18 10:58 Dose: 100 mg Propranolol HCl (Inderal -) 10 mg PO BID [facility] Last Admin: 03/28/18 10:58 Dose: 10 mg Tiotropium [place] (Spiriva -) 1 puff IH DAILY [facility] Last Admin: 03/28/18 10:59 Dose: 1 inh - Objective Vital Signs: Vital Signs Temperature 98.5 F 03/28/18 10:00 Pulse Rate 109 H 03/28/18 10:00 Respiratory Rate 20 03/28/18 10:00 Blood Pressure 102/62 03/28/18 10:00 O2 Sat by Pulse Oximetry (%) 94 L 03/28/18 11:41 Eyes: Yes: PERRL HENT: Yes: Atraumatic Neck: Yes: Supple Cardiovascular: Yes: Regular Rate and Rhythm, Tachycardia, S1, S2 Respiratory: Yes: Diminished Gastrointestinal: Yes: Normal Bowel Sounds, Soft. No: Tenderness Edema: No Additional Findings/Remarks: - Review of Systems Constitutional: denies: Chills, Fever Cardiovascular: denies: Chest Pain, Palpitations, (+) Shortness of Breath Respiratory: (+) cough, sputum production (-) hemoptysis GI: denies: Abdominal Pain, Constipation, Diarrhea, Melena, Nausea, Rectal Bleeding, Vomiting Neurological: denies: Dizziness, Headache, Seizure, Syncope, Weakness Labs: CBC, BMP 03/28/18 06:30 03/28/18 06:30 Problem List - Problems (1) PSVT (paroxysmal supraventricular tachycardia) Code(s): I47.1 - SUPRAVENTRICULAR TACHYCARDIA (2) Acute bronchitis Code(s): J20.9 - ACUTE BRONCHITIS, UNSPECIFIED Qualifiers: Bronchitis organism: unspecified organism Qualified Code(s): J20.9 - Acute bronchitis, unspecified (3) Hypertension Code(s): I10 - ESSENTIAL (PRIMARY) HYPERTENSION Qualifiers: Hypertension type: essential hypertension Qualified Code(s): I10 - Essential (primary) hypertension (4) Pneumonia Code(s): J18.9 - PNEUMONIA, UNSPECIFIED ORGANISM Qualifiers: Pneumonia type: due to unspecified organism Laterality: unspecified laterality Lung location: unspecified part of lung Qualified Code(s): J18.9 - Pneumonia, unspecified organism (5) 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 Acute Hypoxic and Hypercapneic Respiratory Failure improving 2. Acute COPD Exacerbation, RLL pneumonia 3. Churg Valencia Disease 4. Atrial tachyarrhythmia r/o PAF vs PAT 5. HTN PLAN: 1. Holter revealed occasional PSVT 2. Empiric antibiotic course, bronchodilator, steroid taper, titrate O2 to keep SpO2 >90%, BiPAP as needed to assist in work of breathing 3. Continue Inderal 10 bid 4. DVT prophylaxis Further plans are to follow Wilfrido Sarmiento MD
[2018-03-29] MEDS: HEPARIN NA (PORCINE) 5,000 UNITS/ML 1ML VIAL SQ SCH ×3 (06:20→21:03)
[2018-03-29] MEDS: ALBUTEROL SO4 0.042% IH SOL 1.25 MG/3 ML VIAL.NEB NEB SCH ×4 (07:20→20:10)
[2018-03-29] MEDS ORDERED: NYSTATIN POWDER 100,000 UNITS/GM - 15 GM TOPICAL POWDER TP SCH (10:00)
[2018-03-29 10:33] LABS: BASO % 0.5 % (0-2.0); EOS % 5.5 % (0-4.5); HEMATOCRIT 41.3 % (32.4-45.2); HEMOGLOBIN 13.6 GM/dL (10.7-15.3); MEAN CELL VOLUME 90.8 fl (80-96); MEAN PLT VOLUME 8.5 fl (7.5-11.1); MONO % 13.6 % (3.8-10.2); NEUT % 71.4 % (42.8-82.8); PLATELET COUNT 205 K/MM3 (134-434); RBC 4.55 M/mm3 (3.60-5.2); RDW 14.6 % (11.6-15.6)
[2018-03-29 10:57] LABS: ALBUMIN 2.8 g/dl (3.4-5.0); ANION GAP 8 (8-16); BILIRUBIN,TOTAL 0.6 mg/dL (0.2-1.0); BLOOD UREA NITROGEN 22 mg/dL (7-18); CHLORIDE 100 mmol/L (98-107); CO2 35 mmol/L (21-32); CREATININE 0.8 mg/dL (0.55-1.02); GLUCOSE,RANDOM 98 mg/dL (74-106); MAGNESIUM 1.8 mg/dL (1.8-2.4); POTASSIUM 3.6 mmol/L (3.5-5.1); SGOT/AST 24 U/L (15-37); SGPT/ALT 23 U/L (12-78); SODIUM 143 mmol/L (136-145); TOT PROT 6.5 g/dl (6.4-8.2)
[2018-03-29 10:58] LABS: ALK PHOS 84 U/L (45-117)
[2018-03-29] MEDS ORDERED: DEXTROSE 5%-WATER 100 ML IVPB ONE ×2 (11:01→11:02)
[2018-03-29] MEDS ORDERED: PT OWN MED DRAWER 7, Y5N ONE ×2 (11:01→16:05)
[2018-03-29] MEDS: TIOTROPIUM BROMIDE 18 MCG CAPSULES IH SCH (11:09)
[2018-03-29] MEDS: PANTOPRAZOLE 40 MG TABLET (FP) PO SCH (11:09)
[2018-03-29] MEDS: PREGABALIN 50 MG CAPSULE PO SCH ×2 (11:09→21:04)
[2018-03-29] MEDS: methylPREDNISolone NA SUCC 40 MG/1 ML VIAL IVPUSH SCH (11:09)
[2018-03-29] MEDS: CEFTRIAXONE 2 GM in DEXTROSE 5%-WATER 100 ML IVPB SCH (11:20)
--- NOTE | 2018-03-29 13:12 | PN ---
Progress Note, Physician History of Present Illness: PULMONARY ALERT,FEELING BETTER,OOB-CHAIR,LESS DYSPNEIC,+ COUGH - Current Medication List Current Medications: Active Medications Acetaminophen (Tylenol -) 650 mg PO Q6H PRN PRN Reason: FEVER Albuterol Sulfate (Ventolin 0.083% Nebulizer Soln -) 1 amp NEB Q4H PRN PRN Reason: SHORT OF BREATH/WHEEZING Albuterol Sulfate (Ventolin 0.042trength) -) 1 amp NEB RQID [facility] Last Admin: 03/29/18 11:32 Dose: 1 amp Benzocaine/Menthol (Cepacol Lozenge -) 1 each MM Q2H PRN PRN Reason: SORE THROAT Heparin Sodium (Porcine) (Heparin -) 5,000 unit SQ TID [facility] Last Admin: 03/29/18 06:20 Dose: 5,000 unit Ceftriaxone Sodium 2 gm/ (Dextrose) 100 mls @ 200 mls/hr IVPB DAILY [facility] PRN Reason: Protocol Last Admin: 03/29/18 11:20 Dose: 200 mls/hr Magnesium Hydroxide (Milk Of Magnesia -) 30 ml PO DAILY PRN PRN Reason: CONSTIPATION Methylprednisolone Sodium Succinate (Solu-Medrol -) 40 mg IVPUSH DAILY [facility] Last Admin: 03/29/18 11:09 Dose: 40 mg Nystatin (Nystop Powder -) 1 applic TP DAILY [facility] Last Admin: 03/29/18 11:21 Dose: 1 applic Pantoprazole Sodium (Protonix -) 40 mg PO DAILY [facility] Last Admin: 03/29/18 11:09 Dose: 40 mg Polyethylene Glycol (Miralax (For Daily Use) -) 17 gm PO DAILY [facility] Last Admin: 03/28/18 10:58 Dose: Not Given Pregabalin (Lyrica -) 100 mg PO BID [facility] Last Admin: 03/29/18 11:09 Dose: 100 mg Propranolol HCl (Inderal -) 10 mg PO BID [facility] Last Admin: 03/29/18 11:21 Dose: 10 mg Tiotropium [place] (Spiriva -) 1 puff IH DAILY [facility] Last Admin: 03/29/18 11:09 Dose: 1 inh - Objective Vital Signs: Vital Signs Temperature 98.3 F 03/29/18 06:00 Pulse Rate 80 03/29/18 10:00 Respiratory Rate 20 03/29/18 10:00 Blood Pressure 152/66 03/29/18 10:00 O2 Sat by Pulse Oximetry (%) 92 L 03/29/18 09:00 Constitutional: Yes: Well Nourished, Calm Eyes: Yes: WNL HENT: Yes: WNL, Tonsillar Exudate Cardiovascular: Yes: Regular Rate and Rhythm, S1, S2 Respiratory: Yes: Rhonchi (FEW RHONCHI) Gastrointestinal: Yes: Normal Bowel Sounds, Soft Extremities: Yes: WNL Edema: No Labs: CBC, BMP 03/29/18 10:16 03/29/18 10:16 INR, PTT INR 1.19 (0.82-1.09) H 03/23/18 08:15 Problem List - Problems (1) Hypertension Code(s): I10 - ESSENTIAL (PRIMARY) HYPERTENSION Qualifiers: Hypertension type: essential hypertension Qualified Code(s): I10 - Essential (primary) hypertension (2) 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 Code(s): J98.4 - OTHER DISORDERS OF LUNG; M30.1 - POLYARTERITIS WITH LUNG INVOLVEMENT [CHURG-VALENCIA] (3) Respiratory distress Code(s): R06.03 - ACUTE RESPIRATORY DISTRESS (4) Acute respiratory failure with hypoxia and hypercapnia Code(s): J96.01 - ACUTE RESPIRATORY FAILURE WITH HYPOXIA; J96.02 - ACUTE RESPIRATORY FAILURE WITH HYPERCAPNIA (5) Asthma with COPD Code(s): J44.9 - CHRONIC OBSTRUCTIVE PULMONARY DISEASE, UNSPECIFIED (6) Pneumonia Code(s): J18.9 - PNEUMONIA, UNSPECIFIED ORGANISM Qualifiers: Pneumonia type: due to unspecified organism Laterality: unspecified laterality Lung location: unspecified part of lung Qualified Code(s): J18.9 - Pneumonia, unspecified organism Assessment/Plan ASSESSMENT AND PLAN: Acute Hypoxic and Hypercapneic Respiratory Failure improving Acute COPD Exacerbation Pneumonia Sepsis Churg Valencia Disease HTN - ABX - Medrol - inhaled bronchodilators standing and PRN - NIPPV support as needed to assist in work of breathing - O2 to keep SpO2 >90% - DVT prophylaxis DR MCFARLANE
[2018-03-29] MEDS: POLYETHYLENE GLYCOL 3350 119 GM BTL PO SCH (13:17)
--- NOTE | 2018-03-29 15:20 | PN ---
Progress Note, Physician Chief Complaint: Events noted Feels better with less cough (production) History of Present Illness: Patient was seen and examined. Awake and alert. Chart was reviewed Denies chest pain or palpitations. Less SOB and cough - Current Medication List Current Medications: Active Medications Acetaminophen (Tylenol -) 650 mg PO Q6H PRN PRN Reason: FEVER Albuterol Sulfate (Ventolin 0.083% Nebulizer Soln -) 1 amp NEB Q4H PRN PRN Reason: SHORT OF BREATH/WHEEZING Albuterol Sulfate (Ventolin 0.042trength) -) 1 amp NEB RQID [facility] Last Admin: 03/29/18 11:32 Dose: 1 amp Benzocaine/Menthol (Cepacol Lozenge -) 1 each MM Q2H PRN PRN Reason: SORE THROAT Heparin Sodium (Porcine) (Heparin -) 5,000 unit SQ TID [facility] Last Admin: 03/29/18 06:20 Dose: 5,000 unit Ceftriaxone Sodium 2 gm/ (Dextrose) 100 mls @ 200 mls/hr IVPB DAILY [facility] PRN Reason: Protocol Last Admin: 03/29/18 11:20 Dose: 200 mls/hr Magnesium Hydroxide (Milk Of Magnesia -) 30 ml PO DAILY PRN PRN Reason: CONSTIPATION Methylprednisolone Sodium Succinate (Solu-Medrol -) 40 mg IVPUSH DAILY [facility] Last Admin: 03/29/18 11:09 Dose: 40 mg Nystatin (Nystop Powder -) 1 applic TP DAILY [facility] Last Admin: 03/29/18 11:21 Dose: 1 applic Pantoprazole Sodium (Protonix -) 40 mg PO DAILY [facility] Last Admin: 03/29/18 11:09 Dose: 40 mg Polyethylene Glycol (Miralax (For Daily Use) -) 17 gm PO DAILY [facility] Last Admin: 03/29/18 13:17 Dose: Not Given Pregabalin (Lyrica -) 100 mg PO BID [facility] Last Admin: 03/29/18 11:09 Dose: 100 mg Propranolol HCl (Inderal -) 10 mg PO BID [facility] Last Admin: 03/29/18 11:21 Dose: 10 mg Tiotropium [place] (Spiriva -) 1 puff IH DAILY [facility] Last Admin: 03/29/18 11:09 Dose: 1 inh - Objective Vital Signs: Vital Signs Temperature 98.3 F 03/29/18 06:00 Pulse Rate 80 03/29/18 10:00 Respiratory Rate 20 03/29/18 10:00 Blood Pressure 152/66 03/29/18 10:00 O2 Sat by Pulse Oximetry (%) 92 L 03/29/18 09:00 Constitutional: Yes: Well Nourished Eyes: Yes: PERRL HENT: Yes: Atraumatic Neck: Yes: Supple Cardiovascular: Yes: Regular Rate and Rhythm, S1, S2 Respiratory: Yes: Diminished Gastrointestinal: Yes: Normal Bowel Sounds, Soft. No: Tenderness Musculoskeletal: Yes: Back Pain Edema: No Labs: CBC, BMP 03/29/18 10:16 03/29/18 10:16 Problem List - Problems (1) PSVT (paroxysmal supraventricular tachycardia) Code(s): I47.1 - SUPRAVENTRICULAR TACHYCARDIA (2) Acute bronchitis Code(s): J20.9 - ACUTE BRONCHITIS, UNSPECIFIED Qualifiers: Bronchitis organism: unspecified organism Qualified Code(s): J20.9 - Acute bronchitis, unspecified (3) Hypertension Code(s): I10 - ESSENTIAL (PRIMARY) HYPERTENSION Qualifiers: Hypertension type: essential hypertension Qualified Code(s): I10 - Essential (primary) hypertension (4) Pneumonia Code(s): J18.9 - PNEUMONIA, UNSPECIFIED ORGANISM Qualifiers: Pneumonia type: due to unspecified organism Laterality: unspecified laterality Lung location: unspecified part of lung Qualified Code(s): J18.9 - Pneumonia, unspecified organism (5) 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 Acute Hypoxic and Hypercapneic Respiratory Failure improving 2. Acute COPD Exacerbation, RLL pneumonia 3. Churg Valencia Disease 4. Atrial tachyarrhythmia r/o PAF, Holter revealed PSVT 5. HTN PLAN: 1. Present therapy 2. Empiric antibiotic course, bronchodilator, steroid taper, titrate O2 to keep SpO2 >90%, BiPAP as needed to assist in work of breathing 3. Continue Inderal 10 bid 4. DVT prophylaxis Further plans are to follow Wilfrido Sarmiento MD
--- NOTE | 2018-03-29 17:24 | PN ---
Physical Exam: SUBJECTIVE: Patient seen and examined at the bedside. Feels better today, some coughing last night. OBJECTIVE: using incentive spirometer, states its helping robitussin prn Vital Signs Period Temp Pulse Resp BP Sys/Sow Pulse Ox Last 24 Hr 98.0 F-98.3 F 63-102 16-20 122-152/66-89 92-95 GENERAL: The patient is awake, alert, and fully oriented, in no acute distress. HEAD: Normal with no signs of trauma. EYES: PERRL, extraocular movements intact, sclera anicteric, conjunctiva clear. No ptosis. ENT: Ears normal, nares patent, oropharynx clear without exudates, moist mucous membranes. NECK: Trachea midline, full range of motion, supple. LUNGS: Breath sounds equal, diminished, no wheezing, on supplemental oxygen @ 2 liters, not home oxygen dependent HEART: Regular rate and rhythm, S1, S2 without murmur, rub or gallop. ABDOMEN: Soft, nontender, nondistended, BM today EXTREMITIES: no edema. NEUROLOGICAL: Normal speech, gait not observed. PSYCH: Normal mood, normal affect. SKIN: mild rash, pink raised, mild itchiness on upper back and upper chest Laboratory Results - last 24 hr 03/29/18 03/29/18 10:16 10:16 WBC 11.0 H D RBC 4.55 Hgb 13.6 Hct 41.3 MCV 90.8 MCH 30.0 MCHC 33.0 RDW 14.6 Plt Count 205 MPV 8.5 Neutrophils % 71.4 Lymphocytes % 9.0 D Monocytes % 13.6 H Eosinophils % 5.5 H D Basophils % 0.5 D Sodium 143 Potassium 3.6 Chloride 100 Carbon Dioxide 35 H Anion Gap 8 BUN 22 H Creatinine 0.8 Creat Clearance w eGFR > 60 Random Glucose 98 Calcium 9.0 Magnesium 1.8 Total Bilirubin 0.6 AST 24 ALT 23 Alkaline Phosphatase 84 Total Protein 6.5 Albumin 2.8 L Active Medications Generic Name Dose Route Start Last Admin Trade Name Freq PRN Reason Stop Dose Admin Acetaminophen 650 mg 03/27/18 19:19 Tylenol - PO Q6H PRN FEVER Albuterol Sulfate 1 amp 03/27/18 19:19 Ventolin 0.083% Nebulizer Soln - NEB Q4H PRN SHORT OF BREATH/WHEEZING Albuterol Sulfate 1 amp 03/27/18 20:00 03/29/18 16:22 Ventolin 0.042trength) - NEB 1 amp RQID BENJY Administration Benzocaine/Menthol 1 each 03/27/18 19:19 Cepacol Lozenge - MM Q2H PRN SORE THROAT Guaifenesin 10 ml 03/29/18 16:40 Robitussin - PO Q8H PRN COUGH Heparin Sodium (Porcine) 5,000 unit 03/27/18 22:00 03/29/18 15:16 Heparin - SQ 5,000 unit TID [facility]ENJY Administration Ceftriaxone Sodium 2 gm/ 100 mls @ 200 mls/hr 03/28/18 10:00 03/29/18 11:20 Dextrose IVPB 200 mls/hr DAILY [facility]EN[facility]Y Administration Protocol Magnesium Hydroxide 30 ml 03/27/18 19:19 Milk Of Magnesia - PO DAILY PRN CONSTIPATION Methylprednisolone Sodium Succinate 40 mg 03/28/18 10:00 03/29/18 11:09 Solu-Medrol - IVPUSH 40 mg DAILY [facility]Y Administration Nystatin 1 applic 03/29/18 10:00 03/29/18 11:21 Nystop Powder - TP 1 applic DAILY [facility]Y Administration Pantoprazole Sodium 40 mg 03/28/18 10:00 03/29/18 11:09 Protonix - PO 40 mg DAILY [facility]Y Administration Polyethylene Glycol 17 gm 03/28/18 10:00 03/29/18 13:17 Miralax (For Daily Use) - PO Not Given DAILY [facility]Y Pregabalin 100 mg 03/27/18 22:00 03/29/18 11:09 Lyrica - PO 100 mg BID [facility]EN[facility]Y Administration Propranolol HCl 10 mg 03/27/18 22:00 03/29/18 11:21 Inderal - PO 10 mg BID [facility]EN[facility]Y Administration Tiotropium [place] 1 puff 03/28/18 10:00 03/29/18 11:09 Spiriva - IH 1 inh DAILY [facility]Y Administration ASSESSMENT/PLAN: The patient is a 77 year old female with a significant past medical history of COPD, hypertension 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 She presents to the ED on 03/23/2018 via EMS in respiratory distress. As per patient , prior to admission, she began to experience shortness of breath and cough that worsened. She was on PO antibiotics but her symptoms did not resolve. 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 Fluids: tolerating PO Electrolytes: monitor daily Nutrition: low sodium diet Prophy: DVT: SCDs GI: protonix Disposition: full code Visit type - Emergency Visit Emergency Visit: Yes ED Registration Date: 03/23/18 Care time: The patient presented to the Emergency Department on the above date and was hospitalized for further evaluation of their emergent condition. - New Patient This patient is new to me today: No - Critical Care Critical Care patient: No - Discharge Referral Referred to [facility] Med P.C.: No
[2018-03-29] MEDS: guaiFENesin 200 MG/10 ML 10 ML UNIT-DOSE CUPS PO PRN (21:04)
[2018-03-30] MEDS: HEPARIN NA (PORCINE) 5,000 UNITS/ML 1ML VIAL SQ SCH ×3 (05:28→21:31)
[2018-03-30] MEDS: guaiFENesin 200 MG/10 ML 10 ML UNIT-DOSE CUPS PO PRN ×2 (05:33→14:39)
[2018-03-30 06:44] LABS: BASO % 0.2 % (0-2.0); EOS % 2.6 % (0-4.5); HEMATOCRIT 37.6 % (32.4-45.2); HEMOGLOBIN 12.7 GM/dL (10.7-15.3); LYMPH % 11.9 % (8-40); MCH 30.7 pg (25.7-33.7); MCHC 33.7 g/dl (32.0-36.0); MEAN CELL VOLUME 91.1 fl (80-96); MEAN PLT VOLUME 8.8 fl (7.5-11.1); MONO % 13.6 % (3.8-10.2); NEUT % 71.7 % (42.8-82.8); PLATELET COUNT 177 K/MM3 (134-434); RBC 4.13 M/mm3 (3.60-5.2); RDW 14.7 % (11.6-15.6); WHITE BLOOD COUNT 8.7 K/mm3 (4.0-10.0)
[2018-03-30 07:07] LABS: ALBUMIN 2.7 g/dl (3.4-5.0); ANION GAP 6 (8-16); BILIRUBIN,TOTAL 0.6 mg/dL (0.2-1.0); BLOOD UREA NITROGEN 22 mg/dL (7-18); CALCIUM 9.1 mg/dL (8.5-10.1); CHLORIDE 101 mmol/L (98-107); CO2 39 mmol/L (21-32); CREATININE 0.9 mg/dL (0.55-1.02); GLUCOSE,RANDOM 84 mg/dL (74-106); POTASSIUM 3.7 mmol/L (3.5-5.1); SGOT/AST 19 U/L (15-37); SGPT/ALT 20 U/L (12-78); SODIUM 146 mmol/L (136-145); TOT PROT 6.2 g/dl (6.4-8.2)
[2018-03-30 07:08] LABS: ALK PHOS 76 U/L (45-117)
[2018-03-30] MEDS: ALBUTEROL SO4 0.042% IH SOL 1.25 MG/3 ML VIAL.NEB NEB SCH ×4 (07:20→20:38)
--- NOTE | 2018-03-30 08:20 | PN ---
Progress Note, Physician Chief Complaint: C/o cough, LOZOYA, skin rash noted by the staff History of Present Illness: Asthma/COPD Churg-Valencia vasculitis. HTN Ostheoporosis. s/p Parathyroid adenoma. - Current Medication List Current Medications: Active Medications Acetaminophen (Tylenol -) 650 mg PO Q6H PRN PRN Reason: FEVER Albuterol Sulfate (Ventolin 0.083% Nebulizer Soln -) 1 amp NEB Q4H PRN PRN Reason: SHORT OF BREATH/WHEEZING Albuterol Sulfate (Ventolin 0.042trength) -) 1 amp NEB RQID [facility] Last Admin: 03/30/18 07:20 Dose: 1 amp Benzocaine/Menthol (Cepacol Lozenge -) 1 each MM Q2H PRN PRN Reason: SORE THROAT Guaifenesin (Robitussin -) 10 ml PO Q8H PRN PRN Reason: COUGH Last Admin: 03/30/18 05:33 Dose: 10 ml Heparin Sodium (Porcine) (Heparin -) 5,000 unit SQ TID [facility] Last Admin: 03/30/18 05:28 Dose: 5,000 unit Ceftriaxone Sodium 2 gm/ (Dextrose) 100 mls @ 200 mls/hr IVPB DAILY [facility] PRN Reason: Protocol Last Admin: 03/29/18 11:20 Dose: 200 mls/hr Magnesium Hydroxide (Milk Of Magnesia -) 30 ml PO DAILY PRN PRN Reason: CONSTIPATION Methylprednisolone Sodium Succinate (Solu-Medrol -) 40 mg IVPUSH DAILY [facility] Last Admin: 03/29/18 11:09 Dose: 40 mg Pantoprazole Sodium (Protonix -) 40 mg PO DAILY [facility] Last Admin: 03/29/18 11:09 Dose: 40 mg Polyethylene Glycol (Miralax (For Daily Use) -) 17 gm PO DAILY [facility] Last Admin: 03/29/18 13:17 Dose: Not Given Pregabalin (Lyrica -) 100 mg PO BID [facility] Last Admin: 03/29/18 21:04 Dose: 100 mg Propranolol HCl (Inderal -) 10 mg PO BID [facility] Last Admin: 03/29/18 21:04 Dose: 10 mg Tiotropium [place] (Spiriva -) 1 puff IH DAILY [facility] Last Admin: 03/29/18 11:09 Dose: 1 inh Triamcinolone Acetonide (Aristocort 0.5% Cream -) 1 applic TP BID [facility] - Objective Vital Signs: Vital Signs Temperature 97.7 F 03/30/18 05:40 Pulse Rate 68 03/30/18 05:40 Respiratory Rate 20 03/30/18 05:40 Blood Pressure 129/75 03/30/18 05:40 O2 Sat by Pulse Oximetry (%) 95 03/29/18 21:00 Constitutional: Yes: Anxious, Mild Distress Eyes: Yes: Conjunctiva Clear, EOM Intact HENT: Yes: Atraumatic, Pharyngeal Erythema Neck: Yes: Supple, Thyromegaly Cardiovascular: Yes: S1, S2. No: Tachycardia, JVD Respiratory: Yes: Cough, On Nasal O2, Rhonchi (B/L), SOB, SOB on Exertion Gastrointestinal: Yes: Normal Bowel Sounds. No: Soft, Abdomen, Obese, Ascites ...Rectal Exam: Yes: Deferred Genitourinary: No: Anuria, Bladder Distention Breast(s): Yes: WNL Musculoskeletal: No: Back Pain, Joint Stiffness Edema: No Peripheral Pulses WNL: Yes Integumentary: Yes: Rash (macular patchy rash) Neurological: Yes: Alert, Oriented. No: Aphasia, Dysarthria ...Motor Strength: WNL Psychiatric: Yes: WNL Labs: CBC, BMP 03/30/18 05:57 03/30/18 05:57 INR, PTT INR 1.19 (0.82-1.09) H 03/23/18 08:15 Problem List - Problems (1) Respiratory distress Assessment/Plan: Improving with current treatment Code(s): R06.03 - ACUTE RESPIRATORY DISTRESS (2) Asthma with COPD Assessment/Plan: Continue Nebs Q 4 HRS IV Solumedrol 40mg IV now BID Code(s): J44.9 - CHRONIC OBSTRUCTIVE PULMONARY DISEASE, UNSPECIFIED (3) Acute bronchitis Assessment/Plan: . 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 Code(s): J98.4 - OTHER DISORDERS OF LUNG; M30.1 - POLYARTERITIS WITH LUNG INVOLVEMENT [CHURG-VALENCIA] (5) Arrhythmia Assessment/Plan: PSVT Continue Inderal BID Code(s): I49.9 - CARDIAC ARRHYTHMIA, UNSPECIFIED Qualifiers: Atrial fibrillation type: paroxysmal (6) RLL pneumonia Code(s): J18.1 - LOBAR PNEUMONIA, UNSPECIFIED ORGANISM Qualifiers: Pneumonia type: due to unspecified organism Qualified Code(s): J18.1 - Lobar pneumonia, unspecified organism
[2018-03-30] MEDS: POLYETHYLENE GLYCOL 3350 119 GM BTL PO SCH (09:38)
[2018-03-30] MEDS ORDERED: DEXTROSE 5%-WATER 100 ML IVPB ONE (09:44)
[2018-03-30] MEDS: CEFTRIAXONE 2 GM in DEXTROSE 5%-WATER 100 ML IVPB SCH (09:51)
[2018-03-30] MEDS: methylPREDNISolone NA SUCC 40 MG/1 ML VIAL IVPUSH SCH (09:54)
[2018-03-30] MEDS: PANTOPRAZOLE 40 MG TABLET (FP) PO SCH (09:56)
[2018-03-30] MEDS: PREGABALIN 50 MG CAPSULE PO SCH ×2 (09:56→21:30)
[2018-03-30] MEDS: TIOTROPIUM BROMIDE 18 MCG CAPSULES IH SCH (09:56)
--- NOTE | 2018-03-30 12:18 | PN ---
Progress Note, Physician History of Present Illness: Cough and dyspnea improving. - Current Medication List Current Medications: Active Medications Acetaminophen (Tylenol -) 650 mg PO Q6H PRN PRN Reason: FEVER Albuterol Sulfate (Ventolin 0.083% Nebulizer Soln -) 1 amp NEB Q4H PRN PRN Reason: SHORT OF BREATH/WHEEZING Albuterol Sulfate (Ventolin 0.042trength) -) 1 amp NEB RQID [facility] Last Admin: 03/30/18 11:31 Dose: 1 amp Benzocaine/Menthol (Cepacol Lozenge -) 1 each MM Q2H PRN PRN Reason: SORE THROAT Guaifenesin (Robitussin -) 10 ml PO Q8H PRN PRN Reason: COUGH Last Admin: 03/30/18 05:33 Dose: 10 ml Heparin Sodium (Porcine) (Heparin -) 5,000 unit SQ TID [facility] Last Admin: 03/30/18 05:28 Dose: 5,000 unit Ceftriaxone Sodium 2 gm/ (Dextrose) 100 mls @ 200 mls/hr IVPB DAILY [facility] PRN Reason: Protocol Last Admin: 03/30/18 09:51 Dose: 200 mls/hr Magnesium Hydroxide (Milk Of Magnesia -) 30 ml PO DAILY PRN PRN Reason: CONSTIPATION Methylprednisolone Sodium Succinate (Solu-Medrol -) 40 mg IVPUSH DAILY [facility] Last Admin: 03/30/18 09:54 Dose: 40 mg Pantoprazole Sodium (Protonix -) 40 mg PO DAILY [facility] Last Admin: 03/30/18 09:56 Dose: 40 mg Polyethylene Glycol (Miralax (For Daily Use) -) 17 gm PO DAILY [facility] Last Admin: 03/30/18 09:38 Dose: Not Given Pregabalin (Lyrica -) 100 mg PO BID [facility] Last Admin: 03/30/18 09:56 Dose: 100 mg Propranolol HCl (Inderal -) 10 mg PO BID [facility] Last Admin: 03/30/18 09:57 Dose: 10 mg Tiotropium [place] (Spiriva -) 1 puff IH DAILY [facility] Last Admin: 03/30/18 09:56 Dose: 1 inh Triamcinolone Acetonide (Aristocort 0.5% Cream -) 1 applic TP BID [facility] - Objective Vital Signs: Vital Signs Temperature 98.5 F 03/30/18 09:00 Pulse Rate 85 03/30/18 09:00 Respiratory Rate 18 03/30/18 09:00 Blood Pressure 106/60 03/30/18 09:00 O2 Sat by Pulse Oximetry (%) 94 L 03/30/18 10:00 Constitutional: Yes: No Distress, Calm, Thin Neck: Yes: Supple Cardiovascular: Yes: Regular Rate and Rhythm Respiratory: Yes: Regular, Diminished, On Nasal O2 Gastrointestinal: Yes: Normal Bowel Sounds, Soft Edema: No Labs: CBC, BMP 03/30/18 05:57 03/30/18 05:57 INR, PTT INR 1.19 (0.82-1.09) H 03/23/18 08:15 Problem List - Problems (1) Acute bronchitis Code(s): J20.9 - ACUTE BRONCHITIS, UNSPECIFIED Qualifiers: Bronchitis organism: unspecified organism Qualified Code(s): J20.9 - Acute bronchitis, unspecified (2) Arrhythmia Code(s): I49.9 - CARDIAC ARRHYTHMIA, UNSPECIFIED Qualifiers: Atrial fibrillation type: paroxysmal (3) Asthma with COPD Code(s): J44.9 - CHRONIC OBSTRUCTIVE PULMONARY DISEASE, UNSPECIFIED (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 Acute Hypoxic and Hypercapneic Respiratory Failure improving 2. Acute COPD Exacerbation, RLL pneumonia 3. Churg Valencia Disease 4. Atrial tachyarrhythmia r/o PAF, Holter revealed PSVT 5. HTN PLAN: 1. Complete abx course, bronchodilator, steroid tape with GI protection, titrate O2 to keep SpO2 >90%, BiPAP as needed to assist in work of breathing 2. Continue Inderal 10 bid 3. DVT prophylaxis
--- NOTE | 2018-03-30 13:33 | PN ---
Progress Note, Physician History of Present Illness: pulmonary alert,oob-chair,comfortable,+ cough - Current Medication List Current Medications: Active Medications Acetaminophen (Tylenol -) 650 mg PO Q6H PRN PRN Reason: FEVER Albuterol Sulfate (Ventolin 0.083% Nebulizer Soln -) 1 amp NEB Q4H PRN PRN Reason: SHORT OF BREATH/WHEEZING Albuterol Sulfate (Ventolin 0.042trength) -) 1 amp NEB RQID [facility] Last Admin: 03/30/18 11:31 Dose: 1 amp Benzocaine/Menthol (Cepacol Lozenge -) 1 each MM Q2H PRN PRN Reason: SORE THROAT Guaifenesin (Robitussin -) 10 ml PO Q8H PRN PRN Reason: COUGH Last Admin: 03/30/18 05:33 Dose: 10 ml Heparin Sodium (Porcine) (Heparin -) 5,000 unit SQ TID [facility] Last Admin: 03/30/18 05:28 Dose: 5,000 unit Ceftriaxone Sodium 2 gm/ (Dextrose) 100 mls @ 200 mls/hr IVPB DAILY [facility] PRN Reason: Protocol Last Admin: 03/30/18 09:51 Dose: 200 mls/hr Magnesium Hydroxide (Milk Of Magnesia -) 30 ml PO DAILY PRN PRN Reason: CONSTIPATION Methylprednisolone Sodium Succinate (Solu-Medrol -) 40 mg IVPUSH DAILY [facility] Last Admin: 03/30/18 09:54 Dose: 40 mg Pantoprazole Sodium (Protonix -) 40 mg PO DAILY [facility] Last Admin: 03/30/18 09:56 Dose: 40 mg Polyethylene Glycol (Miralax (For Daily Use) -) 17 gm PO DAILY [facility] Last Admin: 03/30/18 09:38 Dose: Not Given Pregabalin (Lyrica -) 100 mg PO BID [facility] Last Admin: 03/30/18 09:56 Dose: 100 mg Propranolol HCl (Inderal -) 10 mg PO BID [facility] Last Admin: 03/30/18 09:57 Dose: 10 mg Tiotropium [place] (Spiriva -) 1 puff IH DAILY [facility] Last Admin: 03/30/18 09:56 Dose: 1 inh Triamcinolone Acetonide (Aristocort 0.5% Cream -) 1 applic TP BID [facility] - Objective Vital Signs: Vital Signs Temperature 98.5 F 03/30/18 09:00 Pulse Rate 85 03/30/18 09:00 Respiratory Rate 18 03/30/18 09:00 Blood Pressure 106/60 03/30/18 09:00 O2 Sat by Pulse Oximetry (%) 94 L 03/30/18 10:00 Constitutional: Yes: Well Nourished, Calm Eyes: Yes: WNL HENT: Yes: WNL Neck: Yes: WNL Cardiovascular: Yes: Regular Rate and Rhythm, S1, S2 Respiratory: Yes: Rhonchi (bilateral rhonchi) Gastrointestinal: Yes: Normal Bowel Sounds, Soft Extremities: Yes: WNL Edema: No Labs: CBC, BMP 03/30/18 05:57 03/30/18 05:57 INR, PTT INR 1.19 (0.82-1.09) H 03/23/18 08:15 Problem List - Problems (1) Hypertension Code(s): I10 - ESSENTIAL (PRIMARY) HYPERTENSION Qualifiers: Hypertension type: essential hypertension Qualified Code(s): I10 - Essential (primary) hypertension (2) 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 Code(s): J98.4 - OTHER DISORDERS OF LUNG; M30.1 - POLYARTERITIS WITH LUNG INVOLVEMENT [CHURG-VALENCIA] (3) Respiratory distress Code(s): R06.03 - ACUTE RESPIRATORY DISTRESS (4) Acute respiratory failure with hypoxia and hypercapnia Code(s): J96.01 - ACUTE RESPIRATORY FAILURE WITH HYPOXIA; J96.02 - ACUTE RESPIRATORY FAILURE WITH HYPERCAPNIA (5) Asthma with COPD Code(s): J44.9 - CHRONIC OBSTRUCTIVE PULMONARY DISEASE, UNSPECIFIED (6) Pneumonia Code(s): J18.9 - PNEUMONIA, UNSPECIFIED ORGANISM Qualifiers: Pneumonia type: due to unspecified organism Laterality: unspecified laterality Lung location: unspecified part of lung Qualified Code(s): J18.9 - Pneumonia, unspecified organism Assessment/Plan ASSESSMENT AND PLAN: Acute Hypoxic and Hypercapneic Respiratory Failure improving Acute COPD Exacerbation Pneumonia Sepsis Churg Valencia Disease HTN - ABX - Medrol - inhaled bronchodilators standing and PRN - NIPPV support as needed to assist in work of breathing - O2 to keep SpO2 >90% - DVT prophylaxis DR MCFARLANE
[2018-03-30] MEDS: TRIAMCINOLONE ACET 0.5% CREAM 15 GM TUBE TP SCH ×2 (14:39→21:30)
[2018-03-30] MEDS ORDERED: PT OWN MED DRAWER 7, Y5N ONE (20:56)
[2018-03-31] MEDS: guaiFENesin 200 MG/10 ML 10 ML UNIT-DOSE CUPS PO PRN ×2 (06:00→21:50)
[2018-03-31] MEDS: HEPARIN NA (PORCINE) 5,000 UNITS/ML 1ML VIAL SQ SCH ×3 (06:00→21:47)
[2018-03-31] MEDS: ALBUTEROL SO4 0.042% IH SOL 1.25 MG/3 ML VIAL.NEB NEB SCH ×4 (07:50→20:50)
[2018-03-31] MEDS ORDERED: DEXTROSE 5%-WATER 100 ML IVPB ONE (09:46)
[2018-03-31] MEDS: CEFTRIAXONE 2 GM in DEXTROSE 5%-WATER 100 ML IVPB SCH (09:52)
[2018-03-31] MEDS: PANTOPRAZOLE 40 MG TABLET (FP) PO SCH (10:05)
[2018-03-31] MEDS: TRIAMCINOLONE ACET 0.5% CREAM 15 GM TUBE TP SCH (10:05)
[2018-03-31] MEDS: TIOTROPIUM BROMIDE 18 MCG CAPSULES IH SCH (10:05)
[2018-03-31] MEDS: methylPREDNISolone NA SUCC 40 MG/1 ML VIAL IVPUSH SCH (10:05)
[2018-03-31] MEDS: PREGABALIN 50 MG CAPSULE PO SCH ×2 (10:05→21:47)
[2018-03-31] MEDS: POLYETHYLENE GLYCOL 3350 119 GM BTL PO SCH (10:06)
[2018-03-31] MEDS ORDERED: PT OWN MED DRAWER 7, Y5N ONE ×3 (11:37→22:08)
--- NOTE | 2018-03-31 13:18 | PN ---
Progress Note, Physician History of Present Illness: pulmonary alert,c/o cough,increased at night,-resp distress - Current Medication List Current Medications: Active Medications Acetaminophen (Tylenol -) 650 mg PO Q6H PRN PRN Reason: FEVER Albuterol Sulfate (Ventolin 0.083% Nebulizer Soln -) 1 amp NEB Q4H PRN PRN Reason: SHORT OF BREATH/WHEEZING Albuterol Sulfate (Ventolin 0.042trength) -) 1 amp NEB RQID [facility] Last Admin: 03/31/18 12:02 Dose: 1 amp Benzocaine/Menthol (Cepacol Lozenge -) 1 each MM Q2H PRN PRN Reason: SORE THROAT Guaifenesin (Robitussin -) 10 ml PO Q8H PRN PRN Reason: COUGH Last Admin: 03/31/18 06:00 Dose: 10 ml Heparin Sodium (Porcine) (Heparin -) 5,000 unit SQ TID [facility] Last Admin: 03/31/18 06:00 Dose: 5,000 unit Ceftriaxone Sodium 2 gm/ (Dextrose) 100 mls @ 200 mls/hr IVPB DAILY [facility] PRN Reason: Protocol Last Admin: 03/31/18 09:52 Dose: 200 mls/hr Magnesium Hydroxide (Milk Of Magnesia -) 30 ml PO DAILY PRN PRN Reason: CONSTIPATION Methylprednisolone Sodium Succinate (Solu-Medrol -) 40 mg IVPUSH DAILY [facility] Last Admin: 03/31/18 10:05 Dose: 40 mg Pantoprazole Sodium (Protonix -) 40 mg PO DAILY [facility] Last Admin: 03/31/18 10:05 Dose: 40 mg Polyethylene Glycol (Miralax (For Daily Use) -) 17 gm PO DAILY [facility] Last Admin: 03/31/18 10:06 Dose: Not Given Pregabalin (Lyrica -) 100 mg PO BID [facility] Last Admin: 03/31/18 10:05 Dose: 100 mg Propranolol HCl (Inderal -) 10 mg PO BID [facility] Last Admin: 03/31/18 10:05 Dose: 10 mg Tiotropium [place] (Spiriva -) 1 puff IH DAILY [facility] Last Admin: 03/31/18 10:05 Dose: 1 inh Triamcinolone Acetonide (Aristocort 0.5% Cream -) 1 applic TP BID [facility] Last Admin: 05/08/18 10:05 Dose: 1 applic - Objective Vital Signs: Vital Signs Temperature 98.2 F 03/31/18 09:44 Pulse Rate 88 03/31/18 09:44 Respiratory Rate 18 03/31/18 09:44 Blood Pressure 121/77 03/31/18 09:44 O2 Sat by Pulse Oximetry (%) 93 L 03/31/18 10:00 Constitutional: Yes: Well Nourished, Calm Eyes: Yes: WNL HENT: Yes: WNL Neck: Yes: WNL Cardiovascular: Yes: Regular Rate and Rhythm, S1, S2 Respiratory: Yes: Rhonchi (few scattered cecilia rhonchi) Gastrointestinal: Yes: Normal Bowel Sounds, Soft Extremities: Yes: WNL Edema: No Labs: \ Problem List - Problems (1) Hypertension Code(s): I10 - ESSENTIAL (PRIMARY) HYPERTENSION Qualifiers: Hypertension type: essential hypertension Qualified Code(s): I10 - Essential (primary) hypertension (2) 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 Code(s): J98.4 - OTHER DISORDERS OF LUNG; M30.1 - POLYARTERITIS WITH LUNG INVOLVEMENT [CHURG-VALENCIA] (3) Respiratory distress Code(s): R06.03 - ACUTE RESPIRATORY DISTRESS (4) Acute respiratory failure with hypoxia and hypercapnia Code(s): J96.01 - ACUTE RESPIRATORY FAILURE WITH HYPOXIA; J96.02 - ACUTE RESPIRATORY FAILURE WITH HYPERCAPNIA (5) Asthma with COPD Code(s): J44.9 - CHRONIC OBSTRUCTIVE PULMONARY DISEASE, UNSPECIFIED (6) Pneumonia Code(s): J18.9 - PNEUMONIA, UNSPECIFIED ORGANISM Qualifiers: Pneumonia type: due to unspecified organism Laterality: unspecified laterality Lung location: unspecified part of lung Qualified Code(s): J18.9 - Pneumonia, unspecified organism Assessment/Plan ASSESSMENT AND PLAN: Acute Hypoxic and Hypercapneic Respiratory Failure improving Acute COPD Exacerbation Pneumonia Sepsis Churg Valencia Disease HTN - ABX - prednisone - inhaled bronchodilators standing and PRN - NIPPV support as needed to assist in work of breathing - O2 to keep SpO2 >90% - DVT prophylaxis - chest x-ray - ambulatory o2 sat - short term rehab post discharge DR MCFARLANE
--- NOTE | 2018-03-31 13:22 | PN ---
Progress Note, Physician Chief Complaint: patient c/o cough, less SOB Spoke to daughter Maria Victoria ovalles disposition plans History of Present Illness: Asthma/COPD Churg-Valencia vasculitis. HTN Ostheoporosis. s/p Parathyroid adenoma. - Current Medication List Current Medications: Active Medications Acetaminophen (Tylenol -) 650 mg PO Q6H PRN PRN Reason: FEVER Albuterol Sulfate (Ventolin 0.083% Nebulizer Soln -) 1 amp NEB Q4H PRN PRN Reason: SHORT OF BREATH/WHEEZING Albuterol Sulfate (Ventolin 0.042trength) -) 1 amp NEB RQID [facility] Last Admin: 03/31/18 12:02 Dose: 1 amp Benzocaine/Menthol (Cepacol Lozenge -) 1 each MM Q2H PRN PRN Reason: SORE THROAT Guaifenesin (Robitussin -) 10 ml PO Q8H PRN PRN Reason: COUGH Last Admin: 03/31/18 06:00 Dose: 10 ml Heparin Sodium (Porcine) (Heparin -) 5,000 unit SQ TID [facility] Last Admin: 03/31/18 06:00 Dose: 5,000 unit Ceftriaxone Sodium 2 gm/ (Dextrose) 100 mls @ 200 mls/hr IVPB DAILY [facility] PRN Reason: Protocol Last Admin: 03/31/18 09:52 Dose: 200 mls/hr Magnesium Hydroxide (Milk Of Magnesia -) 30 ml PO DAILY PRN PRN Reason: CONSTIPATION Methylprednisolone Sodium Succinate (Solu-Medrol -) 40 mg IVPUSH DAILY [facility] Last Admin: 03/31/18 10:05 Dose: 40 mg Pantoprazole Sodium (Protonix -) 40 mg PO DAILY [facility] Last Admin: 03/31/18 10:05 Dose: 40 mg Polyethylene Glycol (Miralax (For Daily Use) -) 17 gm PO DAILY [facility] Last Admin: 03/31/18 10:06 Dose: Not Given Pregabalin (Lyrica -) 100 mg PO BID [facility] Last Admin: 03/31/18 10:05 Dose: 100 mg Propranolol HCl (Inderal -) 10 mg PO BID [facility] Last Admin: 03/31/18 10:05 Dose: 10 mg Tiotropium [place] (Spiriva -) 1 puff IH DAILY [facility] Last Admin: 03/31/18 10:05 Dose: 1 inh Triamcinolone Acetonide (Aristocort 0.5% Cream -) 1 applic TP BID [facility] Last Admin: 03/31/18 10:05 Dose: 1 applic - Objective Vital Signs: Vital Signs Temperature 98.2 F 03/31/18 09:44 Pulse Rate 88 03/31/18 09:44 Respiratory Rate 18 03/31/18 09:44 Blood Pressure 121/77 03/31/18 09:44 O2 Sat by Pulse Oximetry (%) 93 L 03/31/18 10:00 Constitutional: Yes: No Distress, Anxious Eyes: Yes: Conjunctiva Clear, EOM Intact HENT: Yes: Atraumatic, Normocephalic Neck: Yes: Supple, Trachea Midline Cardiovascular: Yes: Regular Rate and Rhythm. No: JVD Respiratory: Yes: Cough, On Nasal O2, Rhonchi (Less B/L) Gastrointestinal: Yes: Normal Bowel Sounds, Soft. 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 Code(s): J98.4 - OTHER DISORDERS OF LUNG; M30.1 - POLYARTERITIS WITH LUNG INVOLVEMENT [CHURG-VALENCIA] (3) Arrhythmia Assessment/Plan: PSVT Continue Inderal BID Code(s): I49.9 - CARDIAC ARRHYTHMIA, UNSPECIFIED Qualifiers: Atrial fibrillation type: paroxysmal (4) RLL pneumonia Assessment/Plan: Continue abx. Code(s): J18.1 - LOBAR PNEUMONIA, UNSPECIFIED ORGANISM Qualifiers: Pneumonia type: due to unspecified organism Qualified Code(s): J18.1 - Lobar pneumonia, unspecified organism (5) Bronchiectasis Assessment/Plan: Day 9 od IV Abx Code(s): J47.9 - BRONCHIECTASIS, UNCOMPLICATED Qualifiers: Bronchiectasis type: with acute exacerbation
[2018-03-31 14:22] LABS: DRVVT - 46.6 sec (0.0-47.0)
--- NOTE | 2018-03-31 19:56 | CONSULT ---
Consult Consult Specialty:: Dermatology - History Source History Provided By: Patient - Past Medical History [employer] W[employer]: No: Alzheimer's, CVA, Dementia, Migraine, Multiple Sclerosis, Peripheral Neuropathy, Parkinson's, Seizure, Syncope, TIA, Vertigo, Other Pulmonary: Yes: Asthma, COPD, Other (Churg-andressa vasculitis.) Gastrointestinal: No: Ascites, Cancer, Constipation Hepatobiliary: No: Cirrhosis, Cholelithiasis, Cholecystitis, Choledocholithiasis , Hepatitis A, Hepatitis B, Hepatitis C, Other Renal/: No: Renal Failure, Renal Inusuff, BPH, Cancer, Hematuria, Hemodialysis , Neurogenic Bladder, Renal Calculi, UTI, Other Infectious Disease: No: AIDS, C-Diff, Herpes Zoster, HIV, MRSA, STD's, Tuberculosis, VREF, Other Musculoskeletal: No: Bursitis, Chronic low back pain, Hemiparesis, Hemiplegia, Osteoarthritis, Paraplegia, Other Rheumatology: Yes: Vasculitis ENT: No: Allergic Rhinitis, Sinusitis, Other Dermatology: No: Basal Cell, Cellulitis, Eczema, Melanoma, Psoriasis, Squamous Cell, Other - Smoking History Smoking history: Unknown if ever smoked Home Medications - Allergies Allergies/Adverse Reactions: Allergies Allergy/AdvReac Type Severity Reaction Status Date / Time No Known Allergies Allergy Verified 03/23/18 08:20 - Home Medications Home Medications: Ambulatory Orders Albuterol Sulfate Inhaler - [Ventolin Hfa Inhaler -] 1 - 2 inh PO Q4H PRN Alendronate Na [Fosamax] 70 mg PO WEEKLY 03/23/18 Amlodipine Besylate 5 mg PO DAILY 03/23/18 Azithromycin [Zithromax -] 1 gm PO ASDIR 03/23/18 Fluticasone Prop 0.05% Nasal [Flonase -] 1 spray NS ASDIR 03/23/18 Folic Acid 1 mg PO DAILY 03/23/18 Methotrexate Sodium [Methotrexate] 15 mg PO WEEKLY 03/23/18 Pregabalin [Lyrica] 100 mg PO BID 03/23/18 Propranolol HCl 10 mg PO BID 03/23/18 Tiotropium [place] [Spiriva] 1 inh PO DAILY 03/23/18 predniSONE [Deltasone -] 1 mg PO ASDIR 03/23/18 Physical Exam Vital Signs: Vital Signs Temperature 98.1 F 03/31/18 18:00 Pulse Rate 86 03/31/18 18:00 Respiratory Rate 20 03/31/18 18:00 Blood Pressure 122/69 03/31/18 18:00 O2 Sat by Pulse Oximetry (%) 96 03/31/18 16:42 Labs: CBC, BMP 03/30/18 05:57 03/30/18 05:57 Assessment/Plan patient seen for pruritic rash on chest post neck , left lateral breast and groin area. On exam she has a annular erythematous eruption ,scaly with raised active border. Diagnosis . Tinea corporis. Discussed with nurse. will D/C cortisone and start ketoconozole cream applied sparingly to affected areas.
[2018-03-31] MEDS: KETOCONOZOLE 2% TOPICAL CREAM 15 GM TUBE TP SCH (21:47)
[2018-04-01] MEDS: HEPARIN NA (PORCINE) 5,000 UNITS/ML 1ML VIAL SQ SCH ×2 (05:24→15:00)
[2018-04-01] MEDS: ALBUTEROL SO4 0.042% IH SOL 1.25 MG/3 ML VIAL.NEB NEB SCH ×3 (07:57→16:03)
--- NOTE | 2018-04-01 08:29 | PN ---
Progress Note (short form) - Note Progress Note: Feels better, still has cough RA without oxygen exercising-walking 5 min O2SAT 92% CXR noted NAD. Dr Frye consult appreciated. Dx Tinea corporis. Ketoconazole topically suggested. Vital Signs Temp 97.7 F 04/01/18 06:00 Pulse 72 04/01/18 06:00 Resp 20 04/01/18 06:00 BP 128/76 04/01/18 06:00 Pulse Ox 97 04/01/18 07:58 Intake & Output 03/31/18 03/31/18 04/01/18 11:59 23:59 11:59 Intake Total 100 500 Balance 100 500 Intake: IVPB 100 Oral 500 Other: Voiding Method Toilet Toilet Toilet # Unmeasured Voids Void 3 Awake, alert. Neck-no JVD Skin scaly rash. 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 Re-start Metotrexate. 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
--- NOTE | 2018-04-01 08:31 | DS ---
Physical Examination Vital Signs: Vital Signs Temperature 97.7 F 04/01/18 06:00 Pulse Rate 72 04/01/18 06:00 Respiratory Rate 20 04/01/18 06:00 Blood Pressure 128/76 04/01/18 06:00 O2 Sat by Pulse Oximetry (%) 97 04/01/18 07:58 Constitutional: Yes: No Distress, Anxious Eyes: Yes: Conjunctiva Clear, EOM Intact HENT: Yes: Atraumatic, Normocephalic. No: Drooling Neck: Yes: Supple, Trachea Midline Cardiovascular: Yes: Regular Rate and Rhythm, S1, S2. No: Tachycardia, Rub Respiratory: Yes: Cough, Rhonchi, SOB on Exertion Gastrointestinal: Yes: Normal Bowel Sounds, Soft. 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 (Acute) RLL pneumonia (Acute) Respiratory distress (Acute) Sepsis (Acute) Condition: Improved - Instructions Disposition: HOME - Home Medications Comprehensive Discharge Medication List: Ambulatory Orders Albuterol Sulfate Inhaler - [Ventolin Hfa Inhaler -] 1 - 2 inh PO Q4H PRN Alendronate Na [Fosamax] 70 mg PO WEEKLY 03/23/18 Amlodipine Besylate 5 mg PO DAILY 03/23/18 Azithromycin [Zithromax -] 1 gm PO ASDIR 03/23/18 Fluticasone Prop 0.05% Nasal [Flonase -] 1 spray NS ASDIR 03/23/18 Folic Acid 1 mg PO DAILY 03/23/18 Methotrexate Sodium [Methotrexate] 15 mg PO WEEKLY 03/23/18 Pregabalin [Lyrica] 100 mg PO BID 03/23/18 Propranolol HCl 10 mg PO BID 03/23/18 Tiotropium [place] [Spiriva] 1 inh PO DAILY 03/23/18 predniSONE [Deltasone -] 1 mg PO ASDIR 03/23/18
[2018-04-01] MEDS ORDERED: PT OWN MED DRAWER 7, Y5N ONE (09:33)
[2018-04-01] MEDS ORDERED: DEXTROSE 5%-WATER 100 ML IVPB ONE (09:35)
[2018-04-01] MEDS: CEFTRIAXONE 2 GM in DEXTROSE 5%-WATER 100 ML IVPB SCH (09:54)
[2018-04-01] MEDS: methylPREDNISolone NA SUCC 40 MG/1 ML VIAL IVPUSH SCH (09:54)
[2018-04-01] MEDS: PREGABALIN 50 MG CAPSULE PO SCH (09:54)
[2018-04-01] MEDS: TIOTROPIUM BROMIDE 18 MCG CAPSULES IH SCH (09:55)
[2018-04-01] MEDS: KETOCONOZOLE 2% TOPICAL CREAM 15 GM TUBE TP SCH (09:55)
[2018-04-01] MEDS: PANTOPRAZOLE 40 MG TABLET (FP) PO SCH (09:56)
[2018-04-01] MEDS: POLYETHYLENE GLYCOL 3350 119 GM BTL PO SCH (10:07)
[2018-04-01 14:40] VITALS: BP 122/70; PULSE 84; TEMP 97.8
== END 2018-04-01 15:30 | disposition home health service (06) | DRG 871 ==
LOC: JER 08:10 → JERBED 10:06 → JICU 11:46 → J5S 03-28 18:53
PROVIDERS: ADMIT Internal Medicine; ATTEND Internal Medicine
PROC: 3E0F7GC Introduction of Other Therapeutic Substance into Respiratory Tract, Via Natural or Artificial Opening (ICD-10-PCS; principal; 2018-03-24)
DX: A41.89 Other specified sepsis (principal); J96.01 Acute respiratory failure with hypoxia; J18.9 Pneumonia, unspecified organism; J96.02 Acute respiratory failure with hypercapnia; J44.1 Chronic obstructive pulmonary disease with (acute) exacerbation; M30.1 Polyarteritis with lung involvement [Churg-Strauss]; E87.2 Acidosis; J44.0 Chronic obstructive pulmonary disease with (acute) lower respiratory infection; E87.0 Hyperosmolality and hypernatremia; I47.1 Supraventricular tachycardia; I10 Essential (primary) hypertension; M81.0 Age-related osteoporosis without current pathological fracture; J20.9 Acute bronchitis, unspecified; I49.9 Cardiac arrhythmia, unspecified; R59.1 Generalized enlarged lymph nodes; R16.1 Splenomegaly, not elsewhere classified; D35.1 Benign neoplasm of parathyroid gland; Z78.0 Asymptomatic menopausal state; R21 Rash and other nonspecific skin eruption
CPT/HCPCS: 36415; 36600; 71045-TC-FY; 71046-TC-FY; 71250-TC; 80053; 81003; 81015; 82375; 82803; 83050; 83605; 83735; 84100; 84439; 84443; 84481; 84484; 85025; 85610; 85613; 85730; 85732; 86038; 86162; 87040; 87086; 87804; 93005; 93010; 93225; 93226; 93306-TC; 94010; 94640; 94660; 94761; 97116-GP; 97161-GP; 99285-25; J0131; J1644; J7030; J7620

== ENCOUNTER 2021-06-27 11:27 | Emergency (ER) | payer OTHER, BC ==
[2021-06-27 11:58] VITALS: TEMP 97.7; BMI 20.8
[2021-06-27] MEDS ORDERED: DIPHTH,PERTUSS(ACELL),TET 0.5 ML DISP.SYRIN IM ONE ×3 (14:07→15:12)
[2021-06-27 15:21] VITALS: BP 136/68; PULSE 84
== END 2021-06-27 15:46 | disposition home or self-care (01) ==
LOC: JER 11:27
PROC: 0HQ0XZZ Repair Scalp Skin, External Approach (ICD-10-PCS; principal; 2021-06-27)
PROC: 3E0234Z Introduction of Serum, Toxoid and Vaccine into Muscle, Percutaneous Approach (ICD-10-PCS; 2021-06-27)
DX: S01.01XA Laceration without foreign body of scalp, initial encounter (principal); S09.90XA Unspecified injury of head, initial encounter; W17.89XA Other fall from one level to another, initial encounter; W22.8XXA Striking against or struck by other objects, initial encounter
CPT/HCPCS: 12002-25; 70450-TC; 72125-TC; 90471; 90715; 99284-25

== ENCOUNTER 2022-10-03 14:09 | Inpatient (IN) | payer OTHER, BC ==
[2022-10-03] MEDS ORDERED: ALBUTEROL SO4 2.5/IPRATROPIUM 0.5 INH SOL 3 ML VIAL.NEB. NEB ONE ×2 (14:47→22:02)
[2022-10-03] MEDS ORDERED: methylPREDNISolone NA SUCC 125 MG/2 ML VIAL IVPUSH ONE (14:50)
[2022-10-03] MEDS: ALBUTEROL SO4 2.5/IPRATROPIUM 0.5 INH SOL 3 ML VIAL.NEB. NEB SCH ×5 (14:50→22:16)
[2022-10-03] MEDS ORDERED: methylPREDNISolone NA SUCC 125 MG/2 ML VIAL ONE (15:08)
[2022-10-03 15:12] LABS: VENOUS BASE EXCESS 3.4 mmol/L (-2-2); VENOUS O2 SATURATION 79.2 % (70-80); VENOUS PCO2 55.9 mmHg (38-52); VENOUS PH 7.355 (7.310-7.410)
[2022-10-03 15:15] LABS: BASO % 0.5 % (0-2.0); EOS % 0.3 % (0-4.5); HEMATOCRIT 43.1 % (32.4-45.2); HEMOGLOBIN 14.2 GM/dL (10.7-15.3); LYMPH % 8.3 % (8-40); MCH 29.6 pg (25.7-33.7); MEAN CELL VOLUME 89.7 fl (80-96); MEAN PLT VOLUME 8.1 fl (7.5-11.1); NEUT % 74.9 % (42.8-82.8); PLATELET COUNT 227 10^3/uL (134-434); RBC 4.81 M/mm3 (3.60-5.2); RDW 15.1 % (11.6-15.6); WHITE BLOOD COUNT 7.7 K/mm3 (4.0-10.0)
[2022-10-03 15:26] LABS: ACTIVATED PTT 32.7 SECONDS (25.2-36.5); INR 1.11 (0.83-1.09); PROTHROMBIN TIME (PATIENT) 12.8 SEC (9.7-13.0)
[2022-10-03 15:43] LABS: ALBUMIN 3.5 g/dl (3.4-5.0); BLOOD UREA NITROGEN 20.9 mg/dL (7-18); CALCIUM 9.2 mg/dL (8.5-10.1)
[2022-10-03 15:46] LABS: CREATININE 0.9 mg/dL (0.55-1.3)
[2022-10-03 15:47] LABS: TOT PROT 7.4 g/dl (6.4-8.2)
[2022-10-03 15:48] LABS: BILIRUBIN,TOTAL 0.8 mg/dL (0.2-1)
[2022-10-03] MEDS ORDERED: ALBUTEROL SO4 HFA INHALER IH PRN (17:12)
[2022-10-03] MEDS ORDERED: PREGABALIN 100 MG CAPSULE ONE (22:02)
[2022-10-03] MEDS ORDERED: methylPREDNISolone NA SUCC 40 MG/1 ML VIAL ONE (22:02)
[2022-10-03] MEDS: PREGABALIN 100 MG CAPSULE PO SCH (22:16)
[2022-10-04] MEDS: methylPREDNISolone NA SUCC 40 MG/1 ML VIAL IVPUSH SCH ×4 (03:04→17:35)
[2022-10-04 07:01] LABS: BASO % 0.1 % (0-2.0); HEMATOCRIT 39.7 % (32.4-45.2); HEMOGLOBIN 13.1 GM/dL (10.7-15.3); LYMPH % 7.6 % (8-40); MCH 29.8 pg (25.7-33.7); MEAN CELL VOLUME 90.2 fl (80-96); MONO % 6.8 % (3.8-10.2); NEUT % 85.5 % (42.8-82.8); PLATELET COUNT 194 10^3/uL (134-434); WHITE BLOOD COUNT 4.3 K/mm3 (4.0-10.0)
[2022-10-04 07:20] LABS: CALCIUM 8.5 mg/dL (8.5-10.1); MAGNESIUM 2.3 mg/dL (1.8-2.4)
[2022-10-04 07:21] LABS: BLOOD UREA NITROGEN 29.3 mg/dL (7-18)
[2022-10-04 07:23] LABS: CREATININE 1.1 mg/dL (0.55-1.3); PHOSPHOROUS 4.8 mg/dL (2.5-4.9)
[2022-10-04 07:25] LABS: BILIRUBIN,TOTAL 0.4 mg/dL (0.2-1); TOT PROT 6.6 g/dl (6.4-8.2)
[2022-10-04] MEDS: ALBUTEROL SO4 2.5/IPRATROPIUM 0.5 INH SOL 3 ML VIAL.NEB. NEB SCH ×4 (08:00→22:42)
[2022-10-04] MEDS ORDERED: PREGABALIN 100 MG CAPSULE ONE ×2 (10:12→22:39)
[2022-10-04] MEDS ORDERED: amLODIPine BESYLATE 5 MG TABLET (FP) ONE (10:12)
[2022-10-04] MEDS ORDERED: ENOXAPARIN NA (PORCINE) 40 MG/0.4 ML DISP.SYRIN SQ ONE (10:13)
[2022-10-04] MEDS ORDERED: methylPREDNISolone NA SUCC 40 MG/1 ML VIAL ONE ×2 (10:13→16:42)
[2022-10-04] MEDS: ENOXAPARIN NA (PORCINE) 40 MG/0.4 ML DISP.SYRIN SQ SCH (10:24)
[2022-10-04] MEDS: PREGABALIN 100 MG CAPSULE PO SCH ×2 (10:24→22:42)
[2022-10-04] MEDS: amLODIPine BESYLATE 5 MG TABLET (FP) PO SCH (10:24)
[2022-10-04 15:13] LABS: ERYTHROCYTE SEDIMENTATION RATE 16 mm/hr (0-30)
[2022-10-04 20:53] LABS: EPI CELLS 12 /uL (0-25.1); HYALINE CASTS 1 /uL (0-3.1); URINE APPEARANCE CLEAR; URINE BACTERIA 22 /uL (0-1359); URINE BILIRUBIN NEGATIVE (NEGATIVE); URINE COLOR YELLOW; URINE GLUCOSE (UA) NEGATIVE (NEGATIVE); URINE KETONE NEGATIVE (NEGATIVE); URINE LEUK ESTERASE 1+ (NEGATIVE); URINE NITRITE NEGATIVE (NEGATIVE); URINE PROTEIN 2+ (NEGATIVE); URINE RBC 14 /uL (0-23.9); URINE UROBILINOGEN 0.2 mg/dL (0.2-1.0); URINE WBC 66 /uL (0-25.8)
[2022-10-04] MEDS ORDERED: ALBUTEROL SO4 2.5/IPRATROPIUM 0.5 INH SOL 3 ML VIAL.NEB. NEB ONE (22:38)
[2022-10-04] MEDS ORDERED: propRANOLol HCL 10 MG TABLET ONE (22:39)
[2022-10-04] MEDS: propRANOLol HCL 10 MG TABLET PO SCH (22:42)
[2022-10-04] MEDS: BUDESONIDE/FORMETEROL FUMARATE 160/4.5 mcg INHALER IH SCH (22:42)
[2022-10-05] MEDS: methylPREDNISolone NA SUCC 40 MG/1 ML VIAL IVPUSH SCH ×3 (03:07→17:40)
[2022-10-05] MEDS ORDERED: methylPREDNISolone NA SUCC 40 MG/1 ML VIAL ONE ×3 (05:08→17:45)
[2022-10-05 07:29] LABS: BASO % 0.1 % (0-2.0); HEMATOCRIT 40.8 % (32.4-45.2); HEMOGLOBIN 13.4 GM/dL (10.7-15.3); LYMPH % 6.9 % (8-40); MCH 29.8 pg (25.7-33.7); MCHC 32.8 g/dl (32.0-36.0); MEAN CELL VOLUME 90.8 fl (80-96); MEAN PLT VOLUME 8.2 fl (7.5-11.1); PLATELET COUNT 272 10^3/uL (134-434); RBC 4.49 M/mm3 (3.60-5.2); RDW 15.1 % (11.6-15.6); WHITE BLOOD COUNT 10.7 K/mm3 (4.0-10.0)
[2022-10-05 07:52] LABS: CALCIUM 8.9 mg/dL (8.5-10.1)
[2022-10-05 07:53] LABS: BLOOD UREA NITROGEN 42.8 mg/dL (7-18)
[2022-10-05] MEDS: ALBUTEROL SO4 2.5/IPRATROPIUM 0.5 INH SOL 3 ML VIAL.NEB. NEB SCH ×3 (11:52→17:40)
[2022-10-05] MEDS ORDERED: propRANOLol HCL 10 MG TABLET ONE (11:54)
[2022-10-05] MEDS ORDERED: ENOXAPARIN NA (PORCINE) 40 MG/0.4 ML DISP.SYRIN SQ ONE (11:55)
[2022-10-05] MEDS ORDERED: PREGABALIN 100 MG CAPSULE ONE (11:56)
[2022-10-05] MEDS ORDERED: amLODIPine BESYLATE 5 MG TABLET (FP) ONE (11:56)
[2022-10-05] MEDS: propRANOLol HCL 10 MG TABLET PO SCH ×2 (12:09→23:43)
[2022-10-05] MEDS: ENOXAPARIN NA (PORCINE) 40 MG/0.4 ML DISP.SYRIN SQ SCH (12:09)
[2022-10-05] MEDS: amLODIPine BESYLATE 5 MG TABLET (FP) PO SCH (12:10)
[2022-10-05] MEDS: PREGABALIN 100 MG CAPSULE PO SCH ×2 (12:10→23:23)
[2022-10-05] MEDS ORDERED: SODIUM ZIRCONIUM CYCLOSILICATE (LOKELMA) 5 GM PACKET PO SCH (14:00)
[2022-10-05] MEDS ORDERED: ALBUTEROL SO4 2.5/IPRATROPIUM 0.5 INH SOL 3 ML VIAL.NEB. NEB ONE ×2 (14:55→17:45)
[2022-10-05] MEDS: BUDESONIDE/FORMETEROL FUMARATE 160/4.5 mcg INHALER IH SCH ×2 (14:59→23:24)
[2022-10-05] MEDS ORDERED: SODIUM ZIRCONIUM CYCLOSILICATE (LOKELMA) 5 GM PACKET ONE (15:00)
[2022-10-06] MEDS: methylPREDNISolone NA SUCC 40 MG/1 ML VIAL IVPUSH SCH ×3 (02:19→17:49)
[2022-10-06 07:51] LABS: HEMATOCRIT 38.7 % (32.4-45.2); HEMOGLOBIN 13.1 GM/dL (10.7-15.3); MCH 30.6 pg (25.7-33.7); MEAN CELL VOLUME 90.2 fl (80-96); MEAN PLT VOLUME 7.4 fl (7.5-11.1); PLATELET COUNT 242 10^3/uL (134-434); RBC 4.29 M/mm3 (3.60-5.2); RDW 15.2 % (11.6-15.6); WHITE BLOOD COUNT 8.8 K/mm3 (4.0-10.0)
[2022-10-06 08:18] LABS: CALCIUM 9.2 mg/dL (8.5-10.1)
[2022-10-06 08:19] LABS: BLOOD UREA NITROGEN 46.9 mg/dL (7-18)
[2022-10-06 08:24] LABS: BILIRUBIN,TOTAL 0.7 mg/dL (0.2-1); TOT PROT 6.5 g/dl (6.4-8.2)
[2022-10-06] MEDS: ALBUTEROL SO4 2.5/IPRATROPIUM 0.5 INH SOL 3 ML VIAL.NEB. NEB SCH ×4 (08:37→20:05)
[2022-10-06 08:59] LABS: ANISOCYTOSIS 0; HELMET CELLS 0; HOWELL-JOLLY BODIES 0; MACROCYTOSIS 0; OVALOCYTE 0; ROULEAU 0; SICKELED CELLS 0; TARGET CELLS 0; TEAR DROP CELLS 0; TOXIC GRANULATION 0
[2022-10-06] MEDS: ENOXAPARIN NA (PORCINE) 40 MG/0.4 ML DISP.SYRIN SQ SCH (09:14)
[2022-10-06] MEDS: propRANOLol HCL 10 MG TABLET PO SCH ×2 (09:15→21:53)
[2022-10-06] MEDS: amLODIPine BESYLATE 5 MG TABLET (FP) PO SCH (09:15)
[2022-10-06] MEDS: PREGABALIN 100 MG CAPSULE PO SCH ×2 (09:15→21:53)
[2022-10-06] MEDS: BUDESONIDE/FORMETEROL FUMARATE 160/4.5 mcg INHALER IH SCH ×2 (09:16→21:53)
[2022-10-06 12:02] LABS: EPI CELLS 5 /uL (0-25.1); HYALINE CASTS 1 /uL (0-3.1); PH,URINE 5.5 (5.0-8.0); URINE APPEARANCE CLEAR; URINE BACTERIA 8 /uL (0-1359); URINE BILIRUBIN NEGATIVE (NEGATIVE); URINE COLOR YELLOW; URINE GLUCOSE (UA) NEGATIVE (NEGATIVE); URINE KETONE NEGATIVE (NEGATIVE); URINE LEUK ESTERASE NEGATIVE (NEGATIVE); URINE NITRITE NEGATIVE (NEGATIVE); URINE PROTEIN 1+ (NEGATIVE); URINE RBC 5 /uL (0-23.9); URINE UROBILINOGEN 0.2 mg/dL (0.2-1.0); URINE WBC 7 /uL (0-25.8)
[2022-10-06 17:50] VITALS: BMI 21.7
[2022-10-07] MEDS: methylPREDNISolone NA SUCC 40 MG/1 ML VIAL IVPUSH SCH ×3 (02:26→17:15)
[2022-10-07] MEDS: ALBUTEROL SO4 2.5/IPRATROPIUM 0.5 INH SOL 3 ML VIAL.NEB. NEB SCH ×4 (07:35→20:24)
[2022-10-07 09:03] LABS: HEMATOCRIT 38.8 % (32.4-45.2); HEMOGLOBIN 12.8 GM/dL (10.7-15.3); MCH 30.1 pg (25.7-33.7); MCHC 33.1 g/dl (32.0-36.0); MEAN CELL VOLUME 91.2 fl (80-96); MEAN PLT VOLUME 7.7 fl (7.5-11.1); PLATELET COUNT 231 10^3/uL (134-434); RBC 4.26 M/mm3 (3.60-5.2); RDW 15.1 % (11.6-15.6); WHITE BLOOD COUNT 8.3 K/mm3 (4.0-10.0)
[2022-10-07 09:19] LABS: CALCIUM 9.3 mg/dL (8.5-10.1)
[2022-10-07 09:20] LABS: BLOOD UREA NITROGEN 44.8 mg/dL (7-18)
[2022-10-07] MEDS: PREGABALIN 100 MG CAPSULE PO SCH ×2 (09:20→21:04)
[2022-10-07] MEDS: ENOXAPARIN NA (PORCINE) 40 MG/0.4 ML DISP.SYRIN SQ SCH (09:21)
[2022-10-07] MEDS: propRANOLol HCL 10 MG TABLET PO SCH ×2 (09:21→21:03)
[2022-10-07] MEDS: BUDESONIDE/FORMETEROL FUMARATE 160/4.5 mcg INHALER IH SCH ×2 (09:21→21:04)
[2022-10-07] MEDS: amLODIPine BESYLATE 5 MG TABLET (FP) PO SCH (09:21)
[2022-10-07 09:23] LABS: CREATININE 0.9 mg/dL (0.55-1.3)
[2022-10-07 09:24] LABS: TOT PROT 6.5 g/dl (6.4-8.2)
[2022-10-07 09:25] LABS: BILIRUBIN,TOTAL 0.7 mg/dL (0.2-1)
[2022-10-07 11:35] LABS: ANISOCYTOSIS 0; HELMET CELLS 0; HOWELL-JOLLY BODIES 0; MACROCYTOSIS 0; OVALOCYTE 0; ROULEAU 0; SICKELED CELLS 0; TARGET CELLS 0; TEAR DROP CELLS 0; TOXIC GRANULATION 0
[2022-10-08] MEDS: methylPREDNISolone NA SUCC 40 MG/1 ML VIAL IVPUSH SCH ×3 (02:10→22:46)
[2022-10-08 08:37] LABS: HEMOGLOBIN 13.7 GM/dL (10.7-15.3); MCHC 32.6 g/dl (32.0-36.0); MEAN CELL VOLUME 91.9 fl (80-96); MEAN PLT VOLUME 8.2 fl (7.5-11.1); PLATELET COUNT 333 10^3/uL (134-434); RBC 4.57 M/mm3 (3.60-5.2); RDW 14.8 % (11.6-15.6); WHITE BLOOD COUNT 11.7 K/mm3 (4.0-10.0)
[2022-10-08] MEDS: ALBUTEROL SO4 2.5/IPRATROPIUM 0.5 INH SOL 3 ML VIAL.NEB. NEB SCH ×4 (08:45→20:00)
[2022-10-08 09:06] LABS: BLOOD UREA NITROGEN 48.7 mg/dL (7-18); CALCIUM 9.3 mg/dL (8.5-10.1)
[2022-10-08 09:07] LABS: ALBUMIN 3.3 g/dl (3.4-5.0)
[2022-10-08 09:09] LABS: CREATININE 0.9 mg/dL (0.55-1.3)
[2022-10-08 09:10] LABS: BILIRUBIN,TOTAL 0.9 mg/dL (0.2-1); TOT PROT 7.1 g/dl (6.4-8.2)
[2022-10-08] MEDS: amLODIPine BESYLATE 5 MG TABLET (FP) PO SCH (09:15)
[2022-10-08] MEDS: ENOXAPARIN NA (PORCINE) 40 MG/0.4 ML DISP.SYRIN SQ SCH (09:15)
[2022-10-08] MEDS: PREGABALIN 100 MG CAPSULE PO SCH ×2 (09:16→22:40)
[2022-10-08] MEDS: propRANOLol HCL 10 MG TABLET PO SCH ×2 (09:18→22:40)
[2022-10-08] MEDS: BUDESONIDE/FORMETEROL FUMARATE 160/4.5 mcg INHALER IH SCH ×2 (09:52→22:46)
[2022-10-08 11:05] LABS: ANISOCYTOSIS 0; HELMET CELLS 0; HOWELL-JOLLY BODIES 0; MACROCYTOSIS 0; OVALOCYTE 0; ROULEAU 0; SICKELED CELLS 0; TARGET CELLS 0; TEAR DROP CELLS 0; TOXIC GRANULATION 0
[2022-10-09 07:46] LABS: HEMATOCRIT 39.1 % (32.4-45.2); HEMOGLOBIN 12.8 GM/dL (10.7-15.3); MCH 29.7 pg (25.7-33.7); MCHC 32.8 g/dl (32.0-36.0); MEAN CELL VOLUME 90.5 fl (80-96); MEAN PLT VOLUME 7.9 fl (7.5-11.1); PLATELET COUNT 249 10^3/uL (134-434); RBC 4.32 M/mm3 (3.60-5.2); RDW 14.7 % (11.6-15.6); WHITE BLOOD COUNT 8.3 K/mm3 (4.0-10.0)
[2022-10-09 08:20] LABS: BLOOD UREA NITROGEN 48.1 mg/dL (7-18)
[2022-10-09 08:25] LABS: BILIRUBIN,TOTAL 0.7 mg/dL (0.2-1)
[2022-10-09 08:29] LABS: CREATININE 0.9 mg/dL (0.55-1.3)
[2022-10-09 08:31] LABS: TOT PROT 6.3 g/dl (6.4-8.2)
[2022-10-09] MEDS: ALBUTEROL SO4 2.5/IPRATROPIUM 0.5 INH SOL 3 ML VIAL.NEB. NEB SCH ×2 (08:50→11:50)
[2022-10-09 08:58] VITALS: BP 111/77; PULSE 97; RESP 19; TEMP 98.8
[2022-10-09] MEDS: amLODIPine BESYLATE 5 MG TABLET (FP) PO SCH (09:03)
[2022-10-09] MEDS: propRANOLol HCL 10 MG TABLET PO SCH (09:03)
[2022-10-09] MEDS: methylPREDNISolone NA SUCC 40 MG/1 ML VIAL IVPUSH SCH (09:03)
[2022-10-09] MEDS: PREGABALIN 100 MG CAPSULE PO SCH (09:03)
[2022-10-09] MEDS: ENOXAPARIN NA (PORCINE) 40 MG/0.4 ML DISP.SYRIN SQ SCH (09:04)
[2022-10-09] MEDS: BUDESONIDE/FORMETEROL FUMARATE 160/4.5 mcg INHALER IH SCH (09:04)
[2022-10-09 11:07] LABS: ANISOCYTOSIS 0; HELMET CELLS 0; HOWELL-JOLLY BODIES 0; MACROCYTOSIS 0; OVALOCYTE 0; ROULEAU 0; SICKELED CELLS 0; TARGET CELLS 0; TEAR DROP CELLS 0; TOXIC GRANULATION 0
[2022-10-10] MEDS ORDERED: predniSONE 20 MG TABLET (UD) PO SCH (10:00)
[2022-10-10 16:12] LABS: ATYPICAL pANCA <1:20 titer (Neg:<1:20); C-ANCA <1:20 titer (Neg:<1:20)
== END 2022-10-09 14:28 | disposition home or self-care (01) | DRG 190 ==
LOC: JER 14:09 → JERBED 15:48 → J4S 10-05 22:14
PROVIDERS: ADMIT Internal Medicine; ATTEND Internal Medicine
DX: J44.0 Chronic obstructive pulmonary disease with (acute) lower respiratory infection (principal); J12.1 Respiratory syncytial virus pneumonia; J96.01 Acute respiratory failure with hypoxia; I47.1 Supraventricular tachycardia; M30.1 Polyarteritis with lung involvement [Churg-Strauss]; J44.1 Chronic obstructive pulmonary disease with (acute) exacerbation; I12.9 Hypertensive chronic kidney disease with stage 1 through stage 4 chronic kidney disease, or unspecified chronic kidney disease; N18.30 Chronic kidney disease, stage 3 unspecified; R31.9 Hematuria, unspecified
CPT/HCPCS: 0241U-QW; 36415; 71045-TC-FY; 71250-TC; 80048; 80053; 81003; 82570; 82803; 83520; 83735; 84100; 84156; 84439; 84443; 84481; 84484; 85025; 85610; 85651; 85730; 86256; 93005; 93010; 94640; 94761; 97116-GP; 97161-GP; 99285-25

== ENCOUNTER 2024-01-14 14:05 | Emergency (ER) | payer OTHER, BC ==
[2024-01-14] MEDS ORDERED: IBUPROFEN 600 MG TABLET (FP) PO ONE (14:17)
[2024-01-14] MEDS: IBUPROFEN 600 MG TABLET (FP) PO ONE (14:19)
[2024-01-14 15:12] VITALS: BP 122/74; PULSE 78; RESP 18; TEMP 98.4; BMI 21.9
== END 2024-01-14 15:22 | disposition home or self-care (01) ==
LOC: FER 14:05
PROC: 2W3DX1Z Immobilization of Left Lower Arm using Splint (ICD-10-PCS; principal; 2024-01-14)
DX: M25.532 Pain in left wrist (principal); S52.502A Unspecified fracture of the lower end of left radius, initial encounter for closed fracture; R22.32 Localized swelling, mass and lump, left upper limb; W01.0XXA Fall on same level from slipping, tripping and stumbling without subsequent striking against object, initial encounter
CPT/HCPCS: 73090-TC-LT-FY; 73110-TC-LT-FY; 73130-TC-LT-FY; 99283-25

== ENCOUNTER 2024-06-29 15:22 | Inpatient (IN) | payer OTHER, BC ==
[2024-06-29 15:46] VITALS: BMI 17.5
[2024-06-29 17:10] LABS: EOS % 6.4 % (0-4.5); HEMATOCRIT 33.7 % (32.4-45.2); HEMOGLOBIN 11.3 GM/dL (10.7-15.3); MCHC 33.5 g/dl (32.0-36.0); MEAN CELL VOLUME 89.4 fl (80-96); MONO % 6.7 % (3.8-10.2); NEUT % 72.9 % (42.8-82.8); PLATELET COUNT 260 10^3/uL (134-434); RBC 3.77 M/mm3 (3.60-5.2); RDW 15.2 % (11.6-15.6); WHITE BLOOD COUNT 8.5 K/mm3 (4.0-10.0)
[2024-06-29] MEDS ORDERED: PIPERACILLIN/TAZOB 3.375 GM 3.375 GM/50 ML BAG IVPB ONE (17:18)
[2024-06-29] MEDS ORDERED: VANCOMYCIN 1 GRAM (PRE-DOCKED) 1,000 MG/250 ML BAG IVPB ONE (17:18)
[2024-06-29 17:37] LABS: CALCIUM 9.1 mg/dL (8.5-10.1)
[2024-06-29 17:38] LABS: ALBUMIN 3.3 g/dl (3.4-5.0); BLOOD UREA NITROGEN 28.4 mg/dL (7-18)
[2024-06-29 17:41] LABS: CREATININE 0.9 mg/dL (0.55-1.3)
[2024-06-29 17:43] LABS: BILIRUBIN,TOTAL 0.7 mg/dL (0.2-1); TOT PROT 6.8 g/dl (6.4-8.2)
[2024-06-29] MEDS: PIPERACILLIN/TAZOB 3.375 GM 3.375 GM in DEXTROSE 5%-WATER - 50 ML IVPB ONE (18:02)
[2024-06-29] MEDS: VANCOMYCIN 1 GM PREMIX - 1 GM/200 ML BAG IVPB ONE (18:02)
[2024-06-29] MEDS ORDERED: ALBUTEROL SO4 0.083% IH SOL 2.5 MG/3 ML VIAL.NEB. NEB PRN (21:02)
[2024-06-30] MEDS: PREGABALIN 25 MG CAPSULE PO SCH (00:07)
[2024-06-30] MEDS: propRANOLol HCL 10 MG TABLET PO SCH (00:27)
[2024-06-30] MEDS: PIPERACILLIN/TAZOB 4.5 GM 4.5 GM in DEXTROSE 5%-WATER 100 ML IVPB SCH ×2 (02:11→13:24)
[2024-06-30] MEDS: VANCOMYCIN/WATER FOR INJ (PEG) 750 MG/150 ML BAG IVPB ONE (06:25)
[2024-06-30 09:33] LABS: BASO % 0.5 % (0-2.0); EOS % 6.8 % (0-4.5); HEMATOCRIT 32.9 % (32.4-45.2); HEMOGLOBIN 11.3 GM/dL (10.7-15.3); LYMPH % 9.2 % (8-40); MCH 30.5 pg (25.7-33.7); MCHC 34.2 g/dl (32.0-36.0); MEAN PLT VOLUME 7.8 fl (7.5-11.1); MONO % 8.6 % (3.8-10.2); NEUT % 74.9 % (42.8-82.8); PLATELET COUNT 242 10^3/uL (134-434); RDW 14.8 % (11.6-15.6); WHITE BLOOD COUNT 7.4 K/mm3 (4.0-10.0)
[2024-06-30 09:59] LABS: CREATININE 0.9 mg/dL (0.55-1.3)
[2024-06-30 10:00] LABS: MAGNESIUM 1.8 mg/dL (1.8-2.4); PHOSPHOROUS 3.3 mg/dL (2.5-4.9)
[2024-06-30] MEDS: amLODIPine BESYLATE 5 MG TABLET (FP) PO SCH (11:35)
[2024-06-30] MEDS: PREGABALIN 75 MG CAPSULE PO SCH (11:35)
[2024-06-30] MEDS: FOLIC ACID 1 MG TABLET (FP) PO SCH (11:35)
[2024-06-30] MEDS: BUDESONIDE/FORMETEROL FUMARATE 160/4.5 mcg INHALER IH SCH (11:36)
[2024-06-30] MEDS: ENOXAPARIN NA (PORCINE) 30 MG/0.3 ML DISP.SYRIN SQ SCH (11:40)
[2024-06-30] MEDS: METHOTREXATE 2.5 MG TABLET PO SCH (13:25)
[2024-06-30] MEDS: CEFEPIME 1 GM in DEXTROSE 5%-WATER 100 ML IVPB SCH (17:04)
[2024-07-01] MEDS ORDERED: CEFEPIME HCL 1 GM VIAL (RESTRICTED TO ID) ONE (04:55)
[2024-07-01 09:22] LABS: BASO % 0.5 % (0-2.0); EOS % 8.9 % (0-4.5); HEMATOCRIT 33.6 % (32.4-45.2); HEMOGLOBIN 11.4 GM/dL (10.7-15.3); LYMPH % 11.7 % (8-40); MCH 30.4 pg (25.7-33.7); MCHC 33.8 g/dl (32.0-36.0); MEAN CELL VOLUME 89.8 fl (80-96); MEAN PLT VOLUME 7.5 fl (7.5-11.1); MONO % 14.1 % (3.8-10.2); NEUT % 64.8 % (42.8-82.8); PLATELET COUNT 206 10^3/uL (134-434); RBC 3.74 M/mm3 (3.60-5.2); RDW 15.1 % (11.6-15.6); WHITE BLOOD COUNT 5.4 K/mm3 (4.0-10.0)
[2024-07-01 09:30] LABS: POTASSIUM 4.2 mmol/L (3.5-5.1)
[2024-07-01 09:33] LABS: CALCIUM 8.8 mg/dL (8.5-10.1)
[2024-07-01 09:34] LABS: ALBUMIN 2.9 g/dl (3.4-5.0); BLOOD UREA NITROGEN 17.3 mg/dL (7-18)
[2024-07-01 09:37] LABS: BILIRUBIN,TOTAL 0.9 mg/dL (0.2-1); CREATININE 0.9 mg/dL (0.55-1.3)
[2024-07-01 09:39] LABS: TOT PROT 6.1 g/dl (6.4-8.2)
[2024-07-01] MEDS: MULTIVITAMINS (DAILY MVI) TABLET (FP) PO SCH (17:23)
[2024-07-04 09:50] VITALS: RESP 18
[2024-07-04] MEDS: CEFPODOXIME PROXETIL 200 MG TABLET [NF] PO SCH (17:39)
[2024-07-05 09:17] VITALS: BP 117/69; PULSE 86; TEMP 99.5
[2024-07-05 10:23] LABS: BASO % 0.5 % (0-2.0); EOS % 2.7 % (0-4.5); HEMOGLOBIN 12.3 GM/dL (10.7-15.3); LYMPH % 9.8 % (8-40); MCH 30.7 pg (25.7-33.7); MCHC 34.1 g/dl (32.0-36.0); MEAN CELL VOLUME 89.9 fl (80-96); MEAN PLT VOLUME 8.1 fl (7.5-11.1); PLATELET COUNT 239 10^3/uL (134-434); RDW 14.8 % (11.6-15.6); WHITE BLOOD COUNT 7.8 K/mm3 (4.0-10.0)
== END 2024-07-05 15:06 | disposition home or self-care (01) | DRG 603 ==
LOC: JER 15:22 → JERBED 18:31 → J5S 23:51
PROVIDERS: ADMIT Internal Medicine; ATTEND Internal Medicine
DX: L03.115 Cellulitis of right lower limb (principal); L97.919 Non-pressure chronic ulcer of unspecified part of right lower leg with unspecified severity; J44.9 Chronic obstructive pulmonary disease, unspecified; I10 Essential (primary) hypertension; I77.6 Arteritis, unspecified
CPT/HCPCS: 36415; 80048; 80053; 83036; 83735; 84100; 85025; 87040; 93971-TC; 97116-GP; 97162-GP; 99285-25; J8610

== ENCOUNTER 2025-05-28 12:49 | Inpatient (IN) | payer OTHER, BC ==
[2025-05-28 13:49] VITALS: BMI 21.9
[2025-05-28 14:27] LABS: ABSOLUTE IMMATURE GRANULOCYTES 0.03 x10^3/uL (0.0-0.031); BASOPHILS # 0.02 x10^3/uL (0.01-0.08); EOSINOPHIL % 1.7 % (0.7-5.8); EOSINOPHILS # 0.13 x10^3/uL (0.04-0.36); MCHC 31.4 g/dl (32.2-35.5); MEAN CELL VOLUME 95.2 fl (79.4-94.8); MEAN PLT VOLUME 9.4 fl (9.4-12.3); MONOCYTE # 0.34 x10^3/uL (0.24-0.86); MONOCYTE % 4.5 % (4.7-12.5); RDW 13.8 % (12.5-17.0)
[2025-05-28 14:56] LABS: CO2 28.0 mmol/L (21-32); GLUCOSE,RANDOM 82.0 mg/dL (74-106)
[2025-05-28 14:59] LABS: SGOT/AST 22.0 U/L (15-37); SGPT/ALT 11.0 U/L (13-61)
[2025-05-28 15:00] LABS: CREATININE 0.9 mg/dL (0.55-1.3)
[2025-05-28 15:01] LABS: TOT PROT 6.4 g/dl (6.4-8.2)
[2025-05-28 15:03] LABS: ALK PHOS 87.0 U/L (45-117)
[2025-05-28 15:05] LABS: N-TERMINAL BNP 1184.3 pg/ml (5-450)
[2025-05-28] MEDS ORDERED: ALBUTEROL SO4 HFA INHALER IH PRN (17:10)
[2025-05-28 18:38] LABS: HIV INTERPRETATION NEGATIVE (NEGATIVE)
[2025-05-28 21:29] LABS: HCV DIAGNOSTIC IN-HOUSE W/RFLX NON-REACTIVE (NONREACTIVE)
[2025-05-28] MEDS ORDERED: PREGABALIN 25 MG CAPSULE ONE (22:34)
[2025-05-28] MEDS ORDERED: PREGABALIN 50 MG CAPSULE ONE (22:34)
[2025-05-28] MEDS: BUDESONIDE/FORMOTEROL FUMARATE 80-4.5 MCG (10.3 GM INHALER) IH SCH (22:51)
[2025-05-28] MEDS: PREGABALIN 75 MG CAPSULE PO SCH (22:51)
[2025-05-29 02:00] LABS: EPI CELLS 17 /uL (0-25.1); HYALINE CASTS 0 /uL (0-3.1); URINE APPEARANCE CLEAR; URINE BACTERIA 866 /uL (0-1359); URINE BILIRUBIN NEGATIVE (NEGATIVE); URINE COLOR YELLOW; URINE GLUCOSE (UA) NEGATIVE (NEGATIVE); URINE KETONE NEGATIVE (NEGATIVE); URINE LEUK ESTERASE 1+ (NEGATIVE); URINE NITRITE NEGATIVE (NEGATIVE); URINE PROTEIN NEGATIVE (NEGATIVE); URINE RBC 6 /uL (0-23.9); URINE UROBILINOGEN 1.0 mg/dL (0.2-1.0); URINE WBC 36 /uL (0-25.8)
[2025-05-29 07:27] LABS: ABSOLUTE IMMATURE GRANULOCYTES 0.03 x10^3/uL (0.0-0.031); BASOPHILS # 0.02 x10^3/uL (0.01-0.08); EOSINOPHIL % 9.0 % (0.7-5.8); EOSINOPHILS # 0.56 x10^3/uL (0.04-0.36); MCHC 31.3 g/dl (32.2-35.5); MEAN CELL VOLUME 94.7 fl (79.4-94.8); MEAN PLT VOLUME 10.0 fl (9.4-12.3); MONOCYTE # 0.39 x10^3/uL (0.24-0.86); MONOCYTE % 6.3 % (4.7-12.5); RDW 13.9 % (12.5-17.0)
[2025-05-29 07:57] LABS: GLUCOSE,RANDOM 93.0 mg/dL (74-106)
[2025-05-29 07:58] LABS: CO2 32.0 mmol/L (21-32)
[2025-05-29 08:01] LABS: CREATININE 0.8 mg/dL (0.55-1.3); SGOT/AST 17.0 U/L (15-37); SGPT/ALT 11.0 U/L (13-61)
[2025-05-29 08:03] LABS: TOT PROT 6.0 g/dl (6.4-8.2)
[2025-05-29 08:04] LABS: ALK PHOS 81.0 U/L (45-117)
[2025-05-29] MEDS: FOLIC ACID 1 MG TABLET (FP) PO SCH (09:18)
[2025-05-29] MEDS: ENOXAPARIN NA (PORCINE) 40 MG/0.4 ML DISP.SYRIN SQ SCH (09:18)
[2025-05-30] MEDS: FOLIC ACID 1 MG TABLET (FP) PO SCH (10:21)
[2025-05-30] MEDS: ALBUTEROL SO4 2.5/IPRATROPIUM 0.5 INH SOL 3 ML VIAL.NEB. NEB SCH (20:57)
[2025-05-30] MEDS: PREGABALIN 25 MG CAPSULE PO SCH (21:21)
[2025-05-31 10:36] LABS: MCHC 31.9 g/dl (32.2-35.5); MEAN CELL VOLUME 93.9 fl (79.4-94.8); MEAN PLT VOLUME 9.6 fl (9.4-12.3); RDW 13.6 % (12.5-17.0)
[2025-05-31] MEDS: ASCORBIC ACID 250 MG TABLET (FP) PO SCH (10:37)
[2025-05-31] MEDS: MULTIVITAMINS (DAILY MVI) TABLET (FP) PO SCH (12:52)
[2025-06-01] MEDS: METHOTREXATE 2.5 MG TABLET PO SCH ×2 (09:43→10:10)
[2025-06-01] MEDS: PREGABALIN 75 MG CAPSULE PO SCH (10:01)
[2025-06-01] MEDS ORDERED: BACITRACIN ZINC 15 GM TUBE TOPICAL OINTMENT TP SCH (10:30)
[2025-06-01 10:35] VITALS: RESP 16
[2025-06-01 10:37] VITALS: BP 106/62; PULSE 90; TEMP 97.9
== END 2025-06-01 10:31 | DRG 556 ==
LOC: JER 12:49 → JERBED 14:32 → OBSVTOIN 17:05 → J4W 05-29 02:54 → J6W TELE 05-30 16:48
PROVIDERS: ADMIT Student in an Organized Health Care Education/Training Program; ATTEND Internal Medicine
DX: R26.2 Difficulty in walking, not elsewhere classified (principal); M30.1 Polyarteritis with lung involvement [Churg-Strauss]; I47.10 Supraventricular tachycardia, unspecified; J44.9 Chronic obstructive pulmonary disease, unspecified; D53.9 Nutritional anemia, unspecified; L89.322 Pressure ulcer of left buttock, stage 2; L89.312 Pressure ulcer of right buttock, stage 2; M79.89 Other specified soft tissue disorders
CPT/HCPCS: 36415; 71045-TC-FY; 71260-TC; 80053; 81003; 82306; 82550; 82607; 83735; 83880; 84100; 84443; 84484; 85025; 85027; 86803; 87086; 87389; 93005; 93010; 93306-TC; 93970-TC; 94640; 97116-GP; 99285-25; G0378; J8610